=== PATIENT | male | born 1945 | race Hispanic/Latino ===

== ENCOUNTER 2016-02-16 14:37 | Inpatient (IN) | payer MEDICARE ==
--- NOTE | 2016-02-16 15:36 | Emergency Department Report ---
Chief Complaint: Back Pain/Injury Stated Complaint: REFERELL/DIRECT ADMIT/KNOT ON BACK Time Seen by Provider: 02/16/16 15:25 - HPI History of Present Illness: Patient is a 20-year-old male who was sent by his physician Dr. Mead for admission for uncontrolled diabetes II and a gluteal abscess. Patient states he has discomfort on his buttocks area that started to swallow on February 07. Patient states since then pain has gotten worse and swelling has gotten better. Patient states pain for . Patient states he has not been taking medication for diabetes. He took a dose of metformin today. Patient denies fevers/chills/nausea/vomiting/abdominal pain/chest pain/ shortness of breath. - ROS Review of Systems: As noted in HPI. - Exam Vital Signs: Vital Signs 02/16/16 14:51 Temperature 98.8 F Pulse Rate 56 L Respiratory 22 Rate Blood Pressure 109/70 O2 Sat by Pulse 94 Oximetry Physical Exam: GENERAL: Alert and oriented x3, no apparent distress, Normal Gait, atraumatic. NECK: Supple. Non edematous, No carotid bruits. No lymphadenopathy or thyromegaly. LUNGS: Symetrical with respiration, No wheezing, no rales or crackles, CTAB. HEART: S1, S2 present, regular rate and rhythm without murmur, no rubs, no gallops. ABDOMEN: No organomegaly was noted,Positive bowel sounds, soft, and non- distended. . Nontender to palpation on all Quadrants, NO CVA tenderness. SKIN Buttock: Warm and erythemathous, severe tender to touch, mass palpated at bilateral top of buttocks. erythematous at sacral region, no d/c or open lesions , MSE screening note: Focused history and physical exam performed. Due to findings the following was ordered: ED Medical Decision Making - Medical Decision Making Patient was sent in by Dr. pires to be assessed. Patient waiting to see ED physician. Vital signs stable. Patient unable to sleep on buttock. - Differential Diagnosis 1. Pilondial abscess, cellulitis, ED Disposition for MSE Condition: Stable
[2016-02-16] MEDS ORDERED: NACL 0.9% 1000 ML 1,000 ML IV ONE ×2 (20:58→21:04)
[2016-02-16] MEDS ORDERED: MORPHINE IV ONE (21:05)
[2016-02-16] MEDS ORDERED: NACL ONE (21:12)
[2016-02-16 21:21] LABS: Basophils % (Auto) 0.4 % (0.0-1.8); Eosinophils % (Auto) 0.1 % (0.0-4.3); Hematocrit 39.1 % (35.5-45.6); Hemoglobin 13.2 gm/dl (11.8-15.2); Mean Corpuscular HGB Conc 34 % (32-34); Mean Corpuscular Hemoglobin 31 pg (28-32); Mean Corpuscular Volume 91 fl (84-94); Platelet Count 373 K/mm3 (140-440); Red Cell Distribution Width 12.8 % (13.2-15.2); White Blood Count 17.6 K/mm3 (4.5-11.0)
[2016-02-16 21:41] LABS: Alanine Aminotransferase 10 units/L (7-56); Albumin/Globulin Ratio 0.7 %; Alkaline Phosphatase 86 units/L (35-129); Bilirubin,Total 0.5 mg/dL (0.1-1.2); Blood Urea Nitrogen 27 mg/dL (9-20); Calcium 9.1 mg/dL (8.4-10.2); Carbon Dioxide 19 mmol/L (22-30); Glucose 354 mg/dL (75-100); Total Protein 7.1 g/dL (6.3-8.2)
[2016-02-16 21:42] LABS: Anion Gap 31 mmol/L; Chloride 81.8 mmol/L (98-107); Potassium 4.6 mmol/L (3.6-5.0); Sodium 127 mmol/L (137-145)
[2016-02-16] MEDS ORDERED: VANCOMYCIN VIAL IV ONE (21:55)
[2016-02-16] MEDS ORDERED: ZOSYN/NS 4.5GM/100ML 100 ML IV ONE (21:55)
--- NOTE | 2016-02-16 21:55 | Emergency Department Report ---
HPI - General Chief Complaint: Back Pain/Injury - HPI HPI: 70 yo M with ho T2DM, HTN, afib sent here by PCP due to abcess to gluteal region. Starte on 02/08/16 and has worsened since. 12/03 constatn burning sensation, no alleviating factors, aggravated by defecating or sitting down. No urinary/rectal incontinence, no saddle anesthesia, no LE weakness ED Past Medical Hx - Past Medical History Previous Medical History?: Yes Hx Hypertension: Yes Hx Diabetes: Yes - Social History Smoking Status: Unknown if ever smoked Substance Use Type: None - Medications Home Medications: Home Medications Medication Instructions Recorded Confirmed Last Taken Type Acebutolol HCl [Sectral] 400 mg PO QDAY 02/16/16 02/16/16 Unknown History Aspirin EC [Ecotrin] 325 mg PO QDAY 02/16/16 02/16/16 Unknown History AtorvaSTATin [Lipitor] 40 mg PO DAILY 02/16/16 02/16/16 Unknown History Digoxin 250 mcg PO DAILY 02/16/16 02/16/16 Unknown History Lisinopril [Zestril] 20 mg PO QDAY 02/16/16 02/16/16 Unknown History metFORMIN [Glucophage] 850 mg PO BID 02/16/16 02/16/16 Unknown History ED Review of Systems ROS: Stated complaint: REFERELL/DIRECT ADMIT/KNOT ON BACK Other details as noted in HPI GENERAL: normal vitals and appearance EYES: no blurry vision, no eye pain, no discharge ENT & MOUTH: no rhinorrhea, no congestion, no sore throat, no neck pain CARDS: No chest pain, no palpitations RESP: No cough, no wheezing, no sob GI: No abdominal pain, no nausea, no vomiting, no diarrhea, no constipation MSK: No lower extremity edema, MYALGIA SKIN: ABSCESS : No hematuria, no discharge NEURO: No headache, no dizziness, no syncope PSYCH: No SI, no HI, no depression, no halluicinations Physical Exam - Physical Exam Vital Signs: Vital Signs 02/16/16 02/16/16 02/16/16 14:51 20:47 21:13 Temperature 98.8 F 98.7 F Pulse Rate 56 L 59 L Respiratory 22 20 20 Rate Blood Pressure 109/70 Blood Pressure 100/59 [Right] O2 Sat by Pulse 94 97 97 Oximetry Physical Exam: Nursing notes and vitals reviewed GENERAL: well nourished patient in NAD EYES: PERRL, EOMI, no scleral icterus HENT: No posterior oropharynce erythema, normal external ear and nose anatomy NECK: no nuchal rigidity, neck is supple, ROM intact CARDS: RRR, no murmur or gallops, no chest wall tenderness, distal pulses are intact RESP: no respiratory distress, no wheezing, no sob, no crackles or rales ABD: not distended, normal BS, soft, no TTP, no rebound or guarding BACK- erythema of lower back and blt gluteus, moderate TTP RECTAL: no external lesion, normal rectal tone, tenderness to palpation of posterior rectal wall, no fluctuance MSK: No LE pitting edema, no joint TTP in LE or UE NEURO: A&O x4 SKIN: Warm and dry, no rash ED Course Vital Signs 02/16/16 02/16/16 02/16/16 14:51 20:47 21:13 Temperature 98.8 F 98.7 F Pulse Rate 56 L 59 L Respiratory 22 20 20 Rate Blood Pressure 109/70 Blood Pressure 100/59 [Right] O2 Sat by Pulse 94 97 97 Oximetry - Reevaluation(s) Reevaluation #1: 02/16/16 21:[address] Senior, he agrees to admit patient asked for floor orders to be placed ED Medical Decision Making - Lab Data Result diagrams: 02/19/16 06:52 02/19/16 06:52 - Radiology Data Radiology results: report reviewed CT a/p abscess with evidence of gas forming bacteria - Medical Decision Making 70 yo M with back pain concerning for abscess, given that he is diabetic there is a concern for spinal abscess will evaluate for perirectal abscess diagnostic plan: cbc, cmp, lactic acid, ua/uc, blood culture, ct ap therapeutic plan: NS, morphine, vanc/zosyn Critical care attestation.: If time is entered above; I have spent that time in minutes in the direct care of this critically ill patient, excluding procedure time. ED Disposition Clinical Impression: Gluteal abscess Disposition: OP ADMITTED IP TO THIS HOSP Is pt being admited?: Yes Does the pt Need Aspirin: No Condition: Stable Time of Disposition: 02:24 ([place] [facility] [place]
[2016-02-16] MEDS ORDERED: VANCOMYCIN VIAL 1,500 MG in NACL 0.9% 500 ML 500 ML IV ONE (22:00)
[2016-02-16] MEDS ORDERED: VANCOMYCIN PHARMACY TO DOSE IV SCH (22:00)
[2016-02-17 01:00] LABS: Bilirubin,Urine NEG (Negative); Blood,Urine SM (Negative); Ketones,Urine 80 mg/dL (Negative); Leukocyte Esterase,Urine NEG (Negative); Mucus,Urine FEW /HPF; Nitrite,Urine NEG (Negative); Protein,Urine <15 mg/dL mg/dL (Negative); Urobilinogen,Urine < 2.0 mg/dL (<2.0)
[2016-02-17] MEDS ORDERED: NACL 0.9% 1000 ML IV SCH (01:00)
--- NOTE | 2016-02-17 01:26 | Cat Scan Report ---
FINAL REPORT PROCEDURE: CT ABDOMEN PELVIS W CON TECHNIQUE: Computerized axial tomography of the abdomen and pelvis was performed after the IV injection of iodinated nonionic contrast. HISTORY: rectal abscess COMPARISON: No prior studies are available for comparison. FINDINGS: There is subcutaneous induration dorsal to the sacrum and coccyx. There is a semi loculated collection of fluid and air in this region measuring 2.5 x 8.3 by 8.3 centimeters suggesting an early abscess. Pockets of air indicate possible infection with gas-forming organism. The adjacent bony structures are intact without specific evidence of osteomyelitis. There is no intra-abdominal extension of infection. Lung bases are clear. Liver, gallbladder, pancreas and spleen are within normal limits. Adrenal glands are unremarkable. There are cysts in the left kidney. There are no kidney stones. There is no hydronephrosis. There is no bowel obstruction, colitis or enteritis. The appendix is normal. There is calcified plaque in the abdominal aorta. There is no aneurysm. There is no ascites, free air, abscess or adenopathy. There is no acute bony abnormality. There are degenerative changes of the lumbar spine. IMPRESSION: There is subcutaneous induration dorsal to the sacrum and coccyx. There is a semi loculated collection of fluid and air in this region measuring 2.5 x 8.3 by 8.3 centimeters suggesting an early abscess. Pockets of air indicate possible infection with gas-forming organism. The adjacent bony structures are intact without specific evidence of osteomyelitis. There is no intra-abdominal extension of infection. There are cysts in the left kidney. There are no kidney stones. There is no hydronephrosis. There is no bowel obstruction, colitis or enteritis. The appendix is normal. There is no ascites, free air, abscess or adenopathy. There are degenerative changes of the lumbar spine.
[2016-02-17] MEDS ORDERED: D50W (25GM) IV PRN (02:20)
[2016-02-17] MEDS: NACL 0.9% 1000 ML 1,000 ML IV SCH ×2 (02:27→11:39)
[2016-02-17] MEDS: TYLENOL PO PRN ×2 (06:17→21:03)
--- NOTE | 2016-02-17 06:23 | Admit Criteria Form ---
Admission Criteria Documentation: BACK PAIN Clinical Indications for Admission to Inpatient Care (Place 'X' for any and all applicable criteria): Admission is indicated for ANY ONE of the following (1)(2)(3)(4)(5)(6): [ X]I. Inpatient admission required rather than observation care (Also use Back Pain: Observation Care as appropriate) because of ANY ONE of the following [ ]a) Severe pain requiring acute inpatient management [ ]b) Immediate inpatient surgery [ X]c) Other condition, treatment or monitoring requiring inpatient admission [ ]II. Spine fracture with significant damage or threat of damage to vertebral column or spinal cord [ ]III. Progressive or severe neurologic deficit [ ]IV. Suspected spinal infection (e.g., epidural abscess, vertebral osteomyelitis)(10) [ ]V. Suspected cause requires inpatient treatment (eg, aortic dissection) [ ]. Cauda equina syndrome as indicated by ANY ONE of the following (9): [ ]a) Bowel dysfunction [ ]b) Bladder dysfunction [ ]c) Saddle anesthesia [ ]d) Neurologic abnormality suggesting cauda equina impingement Extended stay beyond goal length of stay may be needed for (3)(25): [ ]a) Spinal cord compression from stenosis, disk, or tumor (8)(9) [ ]b) Traumatic or pathologic vertebral fracture (33) [ ]c) Vertebral infection(10) [ ]d) Severe pain that is difficult to control [ ]e) Older patients(65 years or older) The original [employer] content created by [employer] has been revised. The portions of the content which have been revised are identified through the use of italic text or in bold, and [facility] has neither reviewed nor approved the modified material. All other unmodified content is copyright [employer]. Please see references footnoted in the original [facility] edition 2016 Admission Criteria Met: Pending
[2016-02-17] MEDS: NOVOLOG SUB-Q SCH ×4 (07:30→22:11)
--- NOTE | 2016-02-17 10:35 | History and Physical Report ---
History of Present Illness Date of examination: 02/17/16 Date of admission: 02/17/16 02:15 Chief complaint: Pain and swelling both gluteus, History of present illness: Pt is a 70 y/o male alayna is a know diabeetic and has been off his meds for weeks because he had been on the road and left his medicine in one of his stop presented to my office yesterday with pain and swelling in both gluteus, the left being worse than the right. Blood sugar was elevated with A1c of >11%. Denies any fever. No chills, N/V. Presented to ED where CT of the abdomen and pelvis showed what appears to be gas forming organisms. Was commence on Zosyn and vanc. as well as sliding scale insulin. Blood cx ordered Past History Past Medical History: atrial fib, diabetes Past Surgical History: No surgical history Social history: denies: smoking, alcohol abuse Family history: diabetes Medications and Allergies Allergies Allergy/AdvReac Type Severity Reaction Status Date / Time No Known Allergies Allergy Verified 02/16/16 21:14 Home Medications Medication Instructions Recorded Confirmed Last Taken Type Acebutolol HCl [Sectral] 400 mg PO QDAY 02/16/16 02/16/16 Unknown History Aspirin EC [Ecotrin] 325 mg PO QDAY 02/16/16 02/16/16 Unknown History AtorvaSTATin [Lipitor] 40 mg PO DAILY 02/16/16 02/16/16 Unknown History Digoxin 250 mcg PO DAILY 02/16/16 02/16/16 Unknown History Lisinopril [Zestril] 20 mg PO QDAY 02/16/16 02/16/16 Unknown History metFORMIN [Glucophage] 850 mg PO BID 02/16/16 02/16/16 Unknown History Active Meds: Active Medications Acetaminophen (Tylenol) 650 mg PO Q4H PRN PRN Reason: non cardiac pain or fever Last Admin: 02/17/16 06:17 Dose: 650 mg Dextrose (D50w (25gm)) 50 ml IV PRN PRN PRN Reason: Hypoglycemia Docusate Sodium (Colace) 100 mg PO Q12HR [facility] Sodium Chloride (Nacl 0.9% 1000 Ml) 1,000 mls @ 125 mls/hr IV DIRECT [facility] Last Admin: 02/17/16 02:27 Dose: 125 mls/hr Vancomycin HCl 1,250 mg/ (Sodium Chloride) 250 mls @ 166.667 mls/hr IV Q12H [facility] Insulin Aspart (Novolog) 0 units SUB-Q ACHS [facility] PRN Reason: Protocol Senna (Senokot) 8.6 mg PO Q12HR [facility] Vancomycin HCl (Vancomycin Pharmacy To Dose) 1 each IV PKCONSULT [facility] PRN Reason: Protocol Review of Systems Constitutional: no weight loss, no fever, no chills, no anorexia Ears, nose, mouth and throat: no ear pain, no ear discharge Cardiovascular: no chest pain, no orthopnea, no palpitations Respiratory: no cough, no cough with sputum Gastrointestinal: no nausea, no vomiting Genitourinary Male: no dysuria, no hematuria, no flank pain Rectal: no pain Musculoskeletal: other (pain in both gluteal muscles), no neck stiffness, no neck pain Integumentary: no rash, no pruritis, no redness Neurological: no head injury, no transient paralysis, no paralysis Psychiatric: no anxiety, no memory loss, no change in sleep habits Endocrine: no cold intolerance, no heat intolerance, no polyphagia Hematologic/Lymphatic: no easy bruising Allergic/Immunologic: no urticaria Exam - Constitutional Vitals: Temp Pulse Resp BP Pulse Ox 98.6 F 105 H 22 116/56 95 02/17/16 08:44 02/17/16 08:44 02/17/16 08:44 02/17/16 08:44 02/17/16 08:44 General appearance: Present: no acute distress, mild distress - EENT Eyes: Present: PERRL, EOM intact ENT: hearing intact - Neck Neck: Present: supple - Respiratory Respiratory effort: normal Respiratory: bilateral: CTA - Cardiovascular Rhythm: regular Heart Sounds: Present: S1 & S2 - Extremities Extremities: no ischemia, No edema - Abdominal General gastrointestinal: Present: soft, non-tender, non-distended - Integumentary Integumentary: Present: warm (warm tender gluteus muscles bilaterally) - Musculoskeletal Musculoskeletal: strength equal bilaterally - Psychiatric Psychiatric: appropriate mood/affect - Neurologic Neurologic: CNII-XII intact Results - Labs CBC & Chem 7: 02/16/16 21:06 02/16/16 21:06 Labs: Abnormal lab results 02/17/16 Range/Units 06:21 POC Glucose 278 H (70-105) Assessment and Plan - Patient Problems (1) Gluteal abscess Diagnosis Date: 02/17/16 Current Visit: Yes Status: Acute Plan to address problem: Needle aspiration of the left gluteus yieded no abcess. Pt Likely has cellulitis. CT scan of gas forming organism noted, though doubtful. Will consult ID and surgeon. Surgicla consult ordered (2) Diabetes mellitus Diagnosis Date: 02/17/16 Current Visit: Yes Status: Acute Qualifiers: Diabetes mellitus type: type 2 Diabetes mellitus complication status: with skin complications Diabetes mellitus cephalometric technician insulin use: without cephalometric technician use Plan to address problem: 1999 ADA diet, sliding scale insulin (3) H/O atrial fibrillation without current medication Diagnosis Date: 02/17/16 Current Visit: Yes Status: Acute Plan to address problem: continue with digoxin. Will check dig level (4) SIRS (systemic inflammatory response syndrome) Diagnosis Date: 02/17/16 Current Visit: Yes Status: Acute Plan to address problem: elevated lactic acid level. blood culture and urine culture taken. continue with Vanc and zosyn (5) Hyponatremia Diagnosis Date: 02/17/16 Current Visit: Yes Status: Acute Plan to address problem: Secondary to DM. on NS infusion
[2016-02-17] MEDS ORDERED: ACEBUTOLOL HCL 400 MG PO SCH (11:15)
[2016-02-17] MEDS: COLACE PO SCH ×2 (11:40→21:02)
[2016-02-17] MEDS: ZESTRIL PO SCH (11:41)
[2016-02-17] MEDS: SENOKOT PO SCH ×2 (11:41→21:03)
[2016-02-17] MEDS: ECOTRIN PO SCH (11:41)
[2016-02-17] MEDS: VANCOMYCIN VIAL 1,250 MG in NACL 0.9% 250ML 250 ML IV SCH ×2 (11:48→23:22)
[2016-02-17] MEDS: GLUCOPHAGE PO SCH ×2 (11:48→21:03)
[2016-02-17] MEDS: LANOXIN PO SCH (11:53)
--- NOTE | 2016-02-17 16:23 | Consultation ---
History of Present Illness - Reason for Consult Consult date: 02/17/16 Gluteal cellulitis Requesting physician: FÁTIMA ALVARADO - History of Present Illness Rajeev Hsu is a 70-year-old male with type 2 diabetes mellitus, paroxysmal atrial fibrillation and hypertension who was admitted to [facility] on 02/16/[address] Alvarado and his office with hyperglycemia and bilateral gluteal pain that started suddenly early on 02/07/16. 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 He then returned to [place] and developed the above-mentioned symptoms and was seen by Dr. Alvarado and apparently needle aspirate did not reveal any pus. He has not had similar pain before. He knows of no injury to the gluteal areas. He has not had any subjective fever nor chills and no nausea or vomiting. Review of systems General: See HPI HEENT: no odynophagia, no dysphagia, no oral lesions, no vision changes CV: no chest pain, no palpitations Chest: no dyspnea, no cough GI: no abdominal pain, no N/V, no diarrhea : no change in urinary frequency, no dysuria, no hematuria Skin: no rashes; Ext: Severe gluteal pain as per HPI. Neuro: no headaches, no numbness/tingling, no tremors Endocrine: Type 2 diabetes as per HPI. Psych: no anxiety, no depression Infectious diseases: No HIV risk factors, No history of STDs, No significant travel or animal contact history. Past History Past Medical History: atrial fib, diabetes Past Surgical History: No surgical history Social history: denies: smoking, alcohol abuse Family history: diabetes Medications and Allergies Allergies Allergy/AdvReac Type Severity Reaction Status Date / Time No Known Allergies Allergy Verified 02/16/16 21:14 Home Medications Medication Instructions Recorded Confirmed Last Taken Type Acebutolol HCl [Sectral] 400 mg PO QDAY 02/16/16 02/16/16 Unknown History Aspirin EC [Ecotrin] 325 mg PO QDAY 02/16/16 02/16/16 Unknown History AtorvaSTATin [Lipitor] 40 mg PO DAILY 02/16/16 02/16/16 Unknown History Digoxin 250 mcg PO DAILY 02/16/16 02/16/16 Unknown History Lisinopril [Zestril] 20 mg PO QDAY 02/16/16 02/16/16 Unknown History metFORMIN [Glucophage] 850 mg PO BID 02/16/16 02/16/16 Unknown History Active Meds: Active Medications Acetaminophen (Tylenol) 650 mg PO Q4H PRN PRN Reason: non cardiac pain or fever Last Admin: 02/17/16 06:17 Dose: 650 mg Aspirin (Ecotrin) 325 mg PO QDAY [facility] Last Admin: 02/17/16 11:41 Dose: 325 mg Atorvastatin Calcium (Lipitor) 40 mg PO DAILY [facility] Last Admin: 02/17/16 11:48 Dose: 40 mg Dextrose (D50w (25gm)) 50 ml IV PRN PRN PRN Reason: Hypoglycemia Digoxin (Lanoxin) 0.25 mg PO DAILY [facility] Last Admin: 02/17/16 11:53 Dose: 0.25 mg Docusate Sodium (Colace) 100 mg PO Q12HR [facility] Last Admin: 02/17/16 11:40 Dose: 100 mg Sodium Chloride (Nacl 0.9% 1000 Ml) 1,000 mls @ 125 mls/hr IV DIRECT [facility] Last Admin: 02/17/16 11:39 Dose: 125 mls/hr Vancomycin HCl 1,250 mg/ (Sodium Chloride) 250 mls @ 166.667 mls/hr IV Q12H [facility] Last Admin: 02/17/16 11:48 Dose: 166.667 mls/hr Insulin Aspart (Novolog) 0 units SUB-Q ACHS [facility] PRN Reason: Protocol Last Admin: 02/17/16 13:41 Dose: 6 units Lisinopril (Zestril) 20 mg PO QDAY [facility] Last Admin: 02/17/16 11:41 Dose: 20 mg Metformin HCl (Glucophage) 850 mg PO BID [facility] Last Admin: 02/17/16 11:48 Dose: 850 mg Miscellaneous Medication (Acebutolol Hcl [Sectral]) 400 mg PO QDAY [facility] Morphine Sulfate (Morphine) 2 mg IV Q4H PRN PRN Reason: Pain, Moderate (4-6) Senna (Senokot) 8.6 mg PO Q12HR [facility] Last Admin: 02/17/16 11:41 Dose: 8.6 mg Vancomycin HCl (Vancomycin Pharmacy To Dose) 1 each IV PKCONSULT [facility] PRN Reason: Protocol Physical Examination - Physical Exam Narrative exam: GENERAL: Well-developed, well-nourished appearing male who is alert and in no acute distress but lying on his side avoiding pressure to the gluteal areas. HEAD: Normocephalic. No lesions seen. EYES: Pupils are equal reactive to light and accommodation. There is no scleral icterus. Optic fundi are not examined. EARS: Tympanic membranes are normal. THROAT: Oropharynx is normal with no evidence of oral candidiasis or pharyngitis. Poor dentition but no obvious dental infection seen. NECK: Supple. No enlargement of the thyroid gland. No significant cervical lymphadenopathy. No jugular venous distention at 30. LUNGS: Clear with no adventitious sounds. HEART: Regular rate. S1 and S2 are normal. There are no murmurs, gallops, clicks or rubs heard. ABDOMEN: Soft and nontender. Liver and spleen are not palpably enlarged or tender. No palpable masses. Bowel sounds are normoactive. EXTREMITIES: No rash, peripheral lymphadenopathy, clubbing or edema. Lateral induration and exquisite tenderness over both gluteal areas with no definite fluctuance nor crepitus. There is slight increased warmth but no erythema seen. : Normal external male. No penile lesions or urethral discharge. No testicular masses or tenderness. NEUROLOGIC: No focal findings. - Constitutional Vitals: Vital Signs Temp Pulse Resp BP Pulse Ox 98.6 F 106 H 20 110/68 95 02/17/16 08:44 02/17/16 11:53 02/17/16 10:00 02/17/16 11:41 02/17/16 08:44 Temperature -Last 24 Hours Temperature 98.6 F Temperature 98.3 F Results - Labs CBC & Chem 7: 02/16/16 21:06 02/16/16 21:06 Labs: Laboratory Tests 02/16/16 02/16/16 02/17/16 21:06 21:06 00:50 Carbon Dioxide 19 L Glucose 354 H Lactic Acid 2.2 H* Urine Ketones 80 Microbiology 02/16/16 00:00 Peripheral/Venous Blood Culture - Preliminary Culture in Progress 02/16/16 00:00 Peripheral/Venous Blood Culture - Preliminary Culture in Progress Imagin/23: CT abdomen/pelvis: Subcutaneous induration dorsal to the sacrum and coccyx a loculated fluid collection measuring 2.58.3 x 8.3 cm suggestive of early abscess Assessment and Plan Current antibiotics: Vancomycin 1250 mg IV q12h 02/15 --> Previous antibiotics: Zosyn 4.5 g IV X 1 02/15 ASSESSMENT: Rajeev Hsu is a 70-year-old male with type 2 diabetes mellitus, paroxysmal atrial fibrillation and hypertension who was admitted to [facility] on 02/16/[address] Alvarado and his office with hyperglycemia and bilateral gluteal pain that started suddenly early on 02/07/16. CT scan shows a possible early abscess in the precoccygeal/presacral area. Problem list: 1. Severe bilateral gluteal pain -Associated induration and increased warmth and marked tenderness to palpation -Rule out gluteal cellulitis although bilaterality is unusual -Rule out early necrotizing fasciitis -Rule out other cause loading referred pain from #[address] scan suggesting early precoccygeal/presacral abscess 3. Type 2 diabetes mellitus -Poor glycemic control -Hemoglobin A1c of > [address] Alvarado's note -Rule out DKA 4. Lactic acidosis -Likely secondary to #1 and #2 5. History of paroxysmal atrial fibrillation -In sinus rhythm at present on exam 6. Leukocytosis -Secondary to #1 and #2 PLAN: 1. Follow up on admission blood cultures 2. Will continue vancomycin and add back Zosyn pending further culture data 3. Consider IR evaluation to see if collection seen on CT scan can be aspirated 4. Will check beta hydroxybutyrate 5. Glycemic control as per Dr. Alvarado 6. Follow clinical exam closely for evidence of necrotizing fasciitis Thank you for this consultation. We will follow with you. Xavier Ruby MD [facility] Office: [phone]
[2016-02-17] MEDS: ZOSYN/NS 4.5GM/100ML 100 ML IV SCH ×2 (18:05→21:02)
[2016-02-18] MEDS: ZOSYN/NS 4.5GM/100ML 100 ML IV SCH ×3 (05:35→21:45)
[2016-02-18] MEDS: NACL 0.9% 1000 ML 1,000 ML IV SCH ×2 (06:49→17:41)
[2016-02-18 07:38] LABS: Basophils % (Auto) 0.7 % (0.0-1.8); Eosinophils % (Auto) 0.1 % (0.0-4.3); Hematocrit 34.2 % (35.5-45.6); Hemoglobin 11.5 gm/dl (11.8-15.2); Mean Corpuscular HGB Conc 34 % (32-34); Mean Corpuscular Hemoglobin 30 pg (28-32); Mean Corpuscular Volume 91 fl (84-94); Platelet Count 292 K/mm3 (140-440); Red Blood Count 3.77 M/mm3 (3.65-5.03); White Blood Count 16.4 K/mm3 (4.5-11.0)
[2016-02-18 07:54] LABS: Alanine Aminotransferase 14 units/L (7-56); Albumin/Globulin Ratio 0.6 %; Alkaline Phosphatase 67 units/L (35-129); Anion Gap 24 mmol/L; BUN/Creatinine Ratio 18.75; Bilirubin,Total 0.4 mg/dL (0.1-1.2); Blood Urea Nitrogen 15 mg/dL (9-20); Calcium 7.5 mg/dL (8.4-10.2); Carbon Dioxide 17 mmol/L (22-30); Chloride 92.7 mmol/L (98-107); Glucose 267 mg/dL (75-100); Magnesium 1.8 mg/dL (1.7-2.3); Phosphorous 1.5 mg/dL (2.5-4.5); Potassium 3.8 mmol/L (3.6-5.0); Sodium 130 mmol/L (137-145); Total Protein 5.5 g/dL (6.3-8.2)
[2016-02-18] MEDS: NOVOLOG SUB-Q SCH ×4 (08:36→22:31)
[2016-02-18] MEDS: MORPHINE IV PRN ×2 (10:29→22:28)
[2016-02-18] MEDS: SENOKOT PO SCH ×2 (10:29→21:45)
[2016-02-18] MEDS: COLACE PO SCH ×2 (10:30→21:45)
[2016-02-18] MEDS: ECOTRIN PO SCH (10:30)
[2016-02-18] MEDS: LANOXIN PO SCH (10:30)
[2016-02-18] MEDS: GLUCOPHAGE PO SCH ×2 (10:31→21:44)
[2016-02-18] MEDS: ZESTRIL PO SCH (10:31)
[2016-02-18] MEDS ORDERED: XYLOCAINE 1%/ EPI 1:100,000 INFILTRATI NR (11:00)
--- NOTE | 2016-02-18 11:18 | Consultation ---
History of Present Illness Consult date: 02/18/16 - History of present illness History of present illness: The patient is a 70M with a history of DM, afib who presents with upper gluteal pain. He says he has had it for a few days now. He denies any drainage at home. He denies any fevers. He has never had this before. CT scan of the area showed induration and possible supperficial early abscess dorsal to coccyx. Past History Past Medical History: atrial fib, diabetes Past Surgical History: No surgical history Social history: denies: smoking, alcohol abuse Family history: diabetes Medications and Allergies Allergies Allergy/AdvReac Type Severity Reaction Status Date / Time No Known Allergies Allergy Verified 02/16/16 21:14 Home Medications Medication Instructions Recorded Confirmed Last Taken Type Acebutolol HCl [Sectral] 400 mg PO QDAY 02/16/16 02/16/16 Unknown History Aspirin EC [Ecotrin] 325 mg PO QDAY 02/16/16 02/16/16 Unknown History AtorvaSTATin [Lipitor] 40 mg PO DAILY 02/16/16 02/16/16 Unknown History Digoxin 250 mcg PO DAILY 02/16/16 02/16/16 Unknown History Lisinopril [Zestril] 20 mg PO QDAY 02/16/16 02/16/16 Unknown History metFORMIN [Glucophage] 850 mg PO BID 02/16/16 02/16/16 Unknown History Active Meds: Active Medications Acetaminophen (Tylenol) 650 mg PO Q4H PRN PRN Reason: non cardiac pain or fever Last Admin: 02/17/16 21:03 Dose: 650 mg Aspirin (Ecotrin) 325 mg PO QDAY REPLACED BY [facility] Last Admin: 02/18/16 10:30 Dose: 325 mg Atorvastatin Calcium (Lipitor) 40 mg PO DAILY REPLACED BY [facility] Last Admin: 02/18/16 10:30 Dose: 40 mg Dextrose (D50w (25gm)) 50 ml IV PRN PRN PRN Reason: Hypoglycemia Digoxin (Lanoxin) 0.25 mg PO DAILY REPLACED BY [facility] Last Admin: 02/18/16 10:30 Dose: 0.25 mg Docusate Sodium (Colace) 100 mg PO Q12HR REPLACED BY [facility] Last Admin: 02/18/16 10:30 Dose: 100 mg Sodium Chloride (Nacl 0.9% 1000 Ml) 1,000 mls @ 125 mls/hr IV DIRECT REPLACED BY [facility] Last Admin: 12/25/16 06:49 Dose: 125 mls/hr Vancomycin HCl 1,250 mg/ (Sodium Chloride) 250 mls @ 166.667 mls/hr IV Q12H REPLACED BY [facility] Last Admin: 02/17/16 23:22 Dose: 166.667 mls/hr Piperacillin Sod/Tazobactam Sod (Zosyn/Ns 4.5gm/100ml) 100 mls @ 200 mls/hr IV Q8HR REPLACED BY [facility] PRN Reason: Protocol Last Admin: 02/18/16 05:35 Dose: 200 mls/hr Insulin Aspart (Novolog) 0 units SUB-Q ACHS REPLACED BY [facility] PRN Reason: Protocol Last Admin: 02/18/16 08:36 Dose: 3 units Lidocaine/Epinephrine (Xylocaine 1%/ Epi 1:100,000) 20 ml INFILTRATI ONCE NR Stop: 02/18/16 23:59 Last Admin: 02/18/16 10:29 Dose: 20 ml Lisinopril (Zestril) 20 mg PO QDAY REPLACED BY [facility] Last Admin: 02/18/16 10:31 Dose: 20 mg Metformin HCl (Glucophage) 850 mg PO BID REPLACED BY [facility] Last Admin: 02/18/16 10:31 Dose: 850 mg Miscellaneous Medication (Acebutolol Hcl [Sectral]) 400 mg PO QDAY REPLACED BY [facility] Morphine Sulfate (Morphine) 2 mg IV Q4H PRN PRN Reason: Pain, Moderate (4-6) Last Admin: 02/18/16 10:29 Dose: 2 mg Senna (Senokot) 8.6 mg PO Q12HR REPLACED BY [facility] Last Admin: 02/18/16 10:29 Dose: 8.6 mg Vancomycin HCl (Vancomycin Pharmacy To Dose) 1 each IV PKCONSULT REPLACED BY [facility] PRN Reason: Protocol Review of Systems - Constitutional no fever Exam Vital Signs Temp Pulse Resp BP Pulse Ox 98.8 F 56 L 22 109/70 94 02/16/16 14:51 02/16/16 14:51 02/16/16 14:51 02/16/16 14:51 02/16/16 14:51 - General physical appearance Positive: well developed - Eyes Positive: PERRL - Respiratory Positive: normal expansion, clear to auscultation - Cardiovascular Rhythm: regular Heart Sounds: Present: S1 & S2 - Abdomen Abdomen: Present: soft, bowel sounds normal (B/L buttock - induration over B/L upper buttocks. Small area of fluctuance over R buttock, near glteal cleft. ) Results - Labs 02/18/16 07:02 02/18/16 07:02 Abnormal lab results 02/17/16 02/17/16 02/17/16 Range/Units 04:12 12:19 15:47 WBC (4.5-11.0) K/mm3 Hgb (11.8-15.2) gm/dl Hct (35.5-45.6) % RDW (13.2-15.2) % Lymph % (Auto) (13.4-35.0) % [place] % (Auto) (0.0-7.3) % Lymph # (1.2-5.4) K/mm3 [place] # (0.0-0.8) K/mm3 Seg Neutrophils % (40.0-70.0) % Seg Neutrophils # (1.8-7.7) K/mm3 Sodium (137-145) mmol/L Chloride (98-107) mmol/L Carbon Dioxide (22-30) mmol/L Glucose (75-100) mg/dL POC Glucose 270 H 351 H 344 H (70-105) Calcium (8.4-10.2) mg/dL Phosphorus (2.5-4.5) mg/dL Total Protein (6.3-8.2) g/dL Albumin (3.9-5) g/dL Ketones (0.2-2.8) mg/dL 02/17/16 02/17/16 02/18/16 Range/Units 17:19 21:26 05:52 WBC (4.5-11.0) K/mm3 Hgb (11.8-15.2) gm/dl Hct (35.5-45.6) % RDW (13.2-15.2) % Lymph % (Auto) (13.4-35.0) % [place] % (Auto) (0.0-7.3) % Lymph # (1.2-5.4) K/mm3 [place] # (0.0-0.8) K/mm3 Seg Neutrophils % (40.0-70.0) % Seg Neutrophils # (1.8-7.7) K/mm3 Sodium (137-145) mmol/L Chloride (98-107) mmol/L Carbon Dioxide (22-30) mmol/L Glucose (75-100) mg/dL POC Glucose 287 H 241 H (70-105) Calcium (8.4-10.2) mg/dL Phosphorus (2.5-4.5) mg/dL Total Protein (6.3-8.2) g/dL Albumin (3.9-5) g/dL Ketones 15.9 H (0.2-2.8) mg/dL 02/18/16 02/18/16 Range/Units 07:02 07:02 WBC 16.4 H (4.5-11.0) K/mm3 Hgb 11.5 L (11.8-15.2) gm/dl Hct 34.2 L (35.5-45.6) % RDW 13.0 L (13.2-15.2) % Lymph % (Auto) 5.7 L (13.4-35.0) % [place] % (Auto) 8.5 H (0.0-7.3) % Lymph # 0.9 L (1.2-5.4) K/mm3 [place] # 1.4 H (0.0-0.8) K/mm3 Seg Neutrophils % 85.0 H (40.0-70.0) % Seg Neutrophils # 13.9 H (1.8-7.7) K/mm3 Sodium 130 L (137-145) mmol/L Chloride 92.7 L (98-107) mmol/L Carbon Dioxide 17 L (22-30) mmol/L Glucose 267 H (75-100) mg/dL POC Glucose (70-105) Calcium 7.5 L D (8.4-10.2) mg/dL Phosphorus 1.5 L (2.5-4.5) mg/dL Total Protein 5.5 L D (6.3-8.2) g/dL Albumin 2.0 L (3.9-5) g/dL Ketones (0.2-2.8) mg/dL Diabetes panel 02/18/16 Range/Units 07:02 Sodium 130 L (137-145) mmol/L Potassium 3.8 (3.6-5.0) mmol/L Chloride 92.7 L (98-107) mmol/L Carbon Dioxide 17 L (22-30) mmol/L BUN 15 (9-20) mg/dL Creatinine 0.8 (0.8-1.5) mg/dL Glucose 267 H (75-100) mg/dL Calcium 7.5 L D (8.4-10.2) mg/dL AST 22 (5-40) units/L ALT 14 (7-56) units/L Alkaline Phosphatase 67 (35-129) units/L Total Protein 5.5 L D (6.3-8.2) g/dL Albumin 2.0 L (3.9-5) g/dL Calcium panel 02/18/16 Range/Units 07:02 Calcium 7.5 L D (8.4-10.2) mg/dL Phosphorus 1.5 L (2.5-4.5) mg/dL Albumin 2.0 L (3.9-5) g/dL Pituitary panel 02/18/16 Range/Units 07:02 Sodium 130 L (137-145) mmol/L Potassium 3.8 (3.6-5.0) mmol/L Chloride 92.7 L (98-107) mmol/L Carbon Dioxide 17 L (22-30) mmol/L BUN 15 (9-20) mg/dL Creatinine 0.8 (0.8-1.5) mg/dL Glucose 267 H (75-100) mg/dL Calcium 7.5 L D (8.4-10.2) mg/dL Adrenal panel 02/18/16 Range/Units 07:02 Sodium 130 L (137-145) mmol/L Potassium 3.8 (3.6-5.0) mmol/L Chloride 92.7 L (98-107) mmol/L Carbon Dioxide 17 L (22-30) mmol/L BUN 15 (9-20) mg/dL Creatinine 0.8 (0.8-1.5) mg/dL Glucose 267 H (75-100) mg/dL Calcium 7.5 L D (8.4-10.2) mg/dL Total Bilirubin 0.4 (0.1-1.2) mg/dL AST 22 (5-40) units/L ALT 14 (7-56) units/L Alkaline Phosphatase 67 (35-129) units/L Total Protein 5.5 L D (6.3-8.2) g/dL Albumin 2.0 L (3.9-5) g/dL - Imaging Chest x-ray: report reviewed Assessment and Plan A/P: 1. Will aspirate to see if we can send pus for culture. Aside from the small area of fluctuance of R buttock, there is no other definite, large areas of fluctuance. There is extensive induration. Continue IV antibiotics, check cultures.
--- NOTE | 2016-02-18 11:30 | Procedure Note ---
Date of procedure: 02/18/16 Pre-op diagnosis: buttock abscess/induration Post-op diagnosis: same Procedure: Aspiration of R and L buttock, incision/drainage of R buttock abscess Anesthesia: local Surgeon: DANE LEBLANC Computer Numerical Control Programmer: SHRAVAN AMARO Estimated blood loss: minimal Specimen disposition: to lab
[2016-02-18] MEDS: VANCOMYCIN VIAL 1,250 MG in NACL 0.9% 250ML 250 ML IV SCH ×2 (12:22→23:00)
--- NOTE | 2016-02-18 15:55 | Progress Note ---
Assessment and Plan 1. Uncontrolled abcess: Continue with SSI 2. zach gluteal abcess: F/u with blood Cx. continue with Zosyn and Vanc 3. SIRS: continu with iv antibiotic and tend lactic acid level 4. 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 Still has fever Objective - Constitutional Vitals: Vital Signs - 12hr 02/18/16 02/18/16 02/18/16 04:00 08:20 11:45 Temperature 99.3 F 100.5 F H 98.4 F Pulse Rate [ 112 H 106 H 99 H Right Radial] Respiratory 20 16 20 Rate Blood Pressure 117/73 114/56 117/58 [Right Arm] O2 Sat by Pulse 96 Oximetry General appearance: Present: no acute distress - EENT Eyes: PERRL - Neck Neck: supple - Respiratory Respiratory: bilateral: CTA - Cardiovascular Rhythm: regular Heart Sounds: Present: S1 & S2 Extremities: no ischemia - Gastrointestinal General gastrointestinal: Present: soft, non-tender - Integumentary Integumentary: clear, warm - Musculoskeletal Musculoskeletal: strength equal bilaterally - Neurologic Neurologic: CNII-XII intact - Psychiatric Psychiatric: appropriate mood/affect - Labs CBC & Chem 7: 02/18/16 07:02 02/18/16 07:02 Labs: Abnormal lab results 02/17/16 02/17/16 02/17/16 Range/Units 04:12 15:47 17:19 WBC (4.5-11.0) K/mm3 Hgb (11.8-15.2) gm/dl Hct (35.5-45.6) % RDW (13.2-15.2) % Lymph % (Auto) (13.4-35.0) % [place] % (Auto) (0.0-7.3) % Lymph # (1.2-5.4) K/mm3 [place] # (0.0-0.8) K/mm3 Seg Neutrophils % (40.0-70.0) % Seg Neutrophils # (1.8-7.7) K/mm3 Sodium (137-145) mmol/L Chloride (98-107) mmol/L Carbon Dioxide (22-30) mmol/L Glucose (75-100) mg/dL POC Glucose 270 H 344 H (70-105) Calcium (8.4-10.2) mg/dL Phosphorus (2.5-4.5) mg/dL Total Protein (6.3-8.2) g/dL Albumin (3.9-5) g/dL Ketones 15.9 H (0.2-2.8) mg/dL 02/17/16 02/18/16 02/18/16 Range/Units 21:26 05:52 07:02 WBC 16.4 H (4.5-11.0) K/mm3 Hgb 11.5 L (11.8-15.2) gm/dl Hct 34.2 L (35.5-45.6) % RDW 13.0 L (13.2-15.2) % Lymph % (Auto) 5.7 L (13.4-35.0) % [place] % (Auto) 8.5 H (0.0-7.3) % Lymph # 0.9 L (1.2-5.4) K/mm3 [place] # 1.4 H (0.0-0.8) K/mm3 Seg Neutrophils % 85.0 H (40.0-70.0) % Seg Neutrophils # 13.9 H (1.8-7.7) K/mm3 Sodium (137-145) mmol/L Chloride (98-107) mmol/L Carbon Dioxide (22-30) mmol/L Glucose (75-100) mg/dL POC Glucose 287 H 241 H (70-105) Calcium (8.4-10.2) mg/dL Phosphorus (2.5-4.5) mg/dL Total Protein (6.3-8.2) g/dL Albumin (3.9-5) g/dL Ketones (0.2-2.8) mg/dL 02/18/16 02/18/16 Range/Units 07:02 11:51 WBC (4.5-11.0) K/mm3 Hgb (11.8-15.2) gm/dl Hct (35.5-45.6) % RDW (13.2-15.2) % Lymph % (Auto) (13.4-35.0) % [place] % (Auto) (0.0-7.3) % Lymph # (1.2-5.4) K/mm3 [place] # (0.0-0.8) K/mm3 Seg Neutrophils % (40.0-70.0) % Seg Neutrophils # (1.8-7.7) K/mm3 Sodium 130 L (137-145) mmol/L Chloride 92.7 L (98-107) mmol/L Carbon Dioxide 17 L (22-30) mmol/L Glucose 267 H (75-100) mg/dL POC Glucose 314 H (70-105) Calcium 7.5 L D (8.4-10.2) mg/dL Phosphorus 1.5 L (2.5-4.5) mg/dL Total Protein 5.5 L D (6.3-8.2) g/dL Albumin 2.0 L (3.9-5) g/dL Ketones (0.2-2.8) mg/dL
--- NOTE | 2016-02-18 15:56 | Progress Note ---
Assessment and Plan Current antibiotics: Vancomycin 1250 mg IV q12h 02/15 --> Previous antibiotics: Zosyn 4.5 g IV X 1 02/15 ASSESSMENT: Rajeev Hsu is a 70-year-old male with type 2 diabetes mellitus, paroxysmal atrial fibrillation and hypertension who was admitted to [facility] on 02/16/[address] Mead and his office with hyperglycemia and bilateral gluteal pain that started suddenly early on 02/07/16. CT scan shows a possible early abscess in the precoccygeal/presacral area. Problem list: 1. Severe bilateral gluteal pain -Associated induration and increased warmth and marked tenderness to palpation -Rule out gluteal cellulitis although bilaterality is unusual -Rule out early necrotizing fasciitis -Rule out other cause loading referred pain from #2 -Status post I & D of right buttocks abscess 02/17 (details unclear) 2. Type 2 diabetes mellitus -Poor glycemic control -Hemoglobin A1c of > [address] Mead's note -DKA 3. Lactic acidosis -Likely secondary to #1 and #2 5. History of paroxysmal atrial fibrillation -In sinus rhythm at present on exam 6. Leukocytosis -Secondary to #1 and #2 PLAN: 1. Follow up on admission blood cultures (NGTD) 2. Will continue vancomycin and add back Zosyn pending further culture data 3. Await culture results from abscess that was drained today 4. Glycemic control as per Dr. Mead 5. Follow clinical exam closely for evidence of necrotizing fasciitis Xavier Ruby MD [facility] Office: [phone] Subjective Date of service: 02/18/16 Principal diagnosis: Bilateral gluteal cellulitis Interval history: Still with significant bilateral gluteal pain. No subjective fevers or chills. Tolerating antibiotics well to date. Status post abscess drainage by Dr. Rothman earlier today. Objective - Exam Narrative Exam: GENERAL: Well-developed, well-nourished appearing male who is alert and in no acute distress but still lying on his side avoiding pressure to the gluteal areas. HEAD: Normocephalic. No lesions seen. EYES: Pupils are equal reactive to light and accommodation. There is no scleral icterus. Optic fundi are not examined. EARS: Tympanic membranes are normal. THROAT: Oropharynx is normal with no evidence of oral candidiasis or pharyngitis. Poor dentition but no obvious dental infection seen. NECK: Supple. No enlargement of the thyroid gland. No significant cervical lymphadenopathy. No jugular venous distention at 30. LUNGS: Clear with no adventitious sounds. HEART: Regular rate. S1 and S2 are normal. There are no murmurs, gallops, clicks or rubs heard. ABDOMEN: Soft and nontender. Liver and spleen are not palpably enlarged or tender. No palpable masses. Bowel sounds are normoactive. EXTREMITIES: No rash, peripheral lymphadenopathy, clubbing or edema. Bilateral induration and exquisite tenderness over both gluteal areas with no definite fluctuance nor crepitus. There is moderate increased warmth but no erythema seen. : Normal external male. No penile lesions or urethral discharge. No testicular masses or tenderness. NEUROLOGIC: No focal findings. - Constitutional Vitals: Vital Signs Temp Pulse Resp BP Pulse Ox 98.4 F 99 H 20 117/58 96 02/18/16 11:45 02/18/16 11:45 02/18/16 11:45 02/18/16 11:45 02/18/16 08:20 Temperature -Last 24 Hours Temperature 98.4 F Temperature 100.5 F Temperature 99.3 F Temperature 98.6 F Temperature 103 F Temperature 98.3 F - Labs CBC & Chem 7: 02/18/16 07:02 02/18/16 07:02 Labs: Abnormal lab results Laboratory Tests 02/17/16 17:19 Ketones 15.9 H Microbiology 02/18/16 11:30 Buttock Wound Culture - Pending. Gram stain with no PMNs and no organisms 02/16/16 Unknown Peripheral/Venous Blood Culture - Preliminary NO GROWTH AFTER 24 HOURS 02/16/16 Unknown Peripheral/Venous Blood Culture - Preliminary NO GROWTH AFTER 24 HOURS Imagin/23: CT abdomen/pelvis: Subcutaneous induration dorsal to the sacrum and coccyx a loculated fluid collection measuring 2.58.3 x 8.3 cm suggestive of early abscess
--- NOTE | 2016-02-18 16:42 | Event Note ---
Date: 02/18/[address] scan and reviewed note by Dr. Rothman. Patient would best benefit from I&D over percutaneous drain as the fluid and gas is less than 1 cm from the skin surface. Patient had I&D earlier today. No need for percutaneous drainage. Discussed with Dr. Mead
[2016-02-18] MEDS: K-PHOS NEUTRAL PO SCH ×2 (21:45→21:46)
[2016-02-19] MEDS: TESSALON PERLES PO PRN ×2 (01:01→08:00)
[2016-02-19] MEDS: NACL 0.9% 1000 ML 1,000 ML IV SCH (06:04)
[2016-02-19] MEDS: ZOSYN/NS 4.5GM/100ML 100 ML IV SCH ×3 (06:05→22:10)
[2016-02-19 07:36] LABS: Hematocrit 34.2 % (35.5-45.6); Hemoglobin 11.5 gm/dl (11.8-15.2); Mean Corpuscular HGB Conc 34 % (32-34); Mean Corpuscular Hemoglobin 30 pg (28-32); Mean Corpuscular Volume 90 fl (84-94); Platelet Count 328 K/mm3 (140-440); Red Blood Count 3.81 M/mm3 (3.65-5.03); Red Cell Distribution Width 12.8 % (13.2-15.2); White Blood Count 15.7 K/mm3 (4.5-11.0)
[2016-02-19] MEDS: MORPHINE IV PRN ×2 (08:01→23:30)
[2016-02-19] MEDS: NOVOLOG SUB-Q SCH ×4 (08:01→22:20)
[2016-02-19 08:15] LABS: Alanine Aminotransferase 26 units/L (7-56); Albumin/Globulin Ratio 0.6 %; Alkaline Phosphatase 84 units/L (35-129); Anion Gap 23 mmol/L; BUN/Creatinine Ratio 15.71; Bilirubin,Total 0.3 mg/dL (0.1-1.2); Blood Urea Nitrogen 11 mg/dL (9-20); Calcium 7.4 mg/dL (8.4-10.2); Carbon Dioxide 17 mmol/L (22-30); Chloride 95.3 mmol/L (98-107); Glucose 270 mg/dL (75-100); Potassium 3.6 mmol/L (3.6-5.0); Sodium 132 mmol/L (137-145); Total Protein 5.4 g/dL (6.3-8.2)
[2016-02-19 09:05] LABS: Blastocytes % (Manual) 0 %
[2016-02-19 09:06] LABS: Basophils % (Manual) 0 % (0.0-1.8); Eosinophils % (Manual) 0 % (0.0-4.3)
[2016-02-19 09:07] LABS: Burr Cells 1+
[2016-02-19 09:08] LABS: Diff Status Complete
[2016-02-19] MEDS: ZESTRIL PO SCH (09:36)
[2016-02-19] MEDS: ECOTRIN PO SCH (09:36)
[2016-02-19] MEDS: COLACE PO SCH ×2 (09:36→22:10)
[2016-02-19] MEDS: K-PHOS NEUTRAL PO SCH ×4 (09:36→22:10)
[2016-02-19] MEDS: LANOXIN PO SCH (09:37)
[2016-02-19] MEDS: GLUCOPHAGE PO SCH ×2 (09:37→22:10)
[2016-02-19] MEDS: SENOKOT PO SCH ×2 (10:29→22:10)
[2016-02-19] MEDS: VANCOMYCIN VIAL 1,250 MG in NACL 0.9% 250ML 250 ML IV SCH ×2 (11:28→23:30)
[2016-02-19] MEDS: HYDROMET PO PRN (11:28)
--- NOTE | 2016-02-19 12:22 | Progress Note ---
Assessment and Plan 1. Cotninue IV antibiotics. F/U cultures. 2 WBC is decreasing and the patient has been afebrile for past 24hrs. 3. Will monitor closely. At this point, there are no obvious areas of fluctuance on physical exam for further I&D. Subjective Date of service: 02/19/16 Narrative: The patient states that his pain over his upper buttocks is better than yesterday. Objective Vital Signs - 12hr 02/19/16 08:28 Temperature 97.7 F Pulse Rate [ 134 H Right Radial] Respiratory 24 Rate Blood Pressure 138/60 [Right Arm] O2 Sat by Pulse 92 Oximetry - Abdomen soft (The area of induration over B/L upper buttocks is less tender and extensive. No signs of blistering or spreading erythema.) - Labs 02/19/16 06:52 02/19/16 06:52 Diabetes panel 02/19/16 Range/Units 06:52 Sodium 132 L (137-145) mmol/L Potassium 3.6 (3.6-5.0) mmol/L Chloride 95.3 L (98-107) mmol/L Carbon Dioxide 17 L (22-30) mmol/L BUN 11 (9-20) mg/dL Creatinine 0.7 L (0.8-1.5) mg/dL Glucose 270 H (75-100) mg/dL Calcium 7.4 L (8.4-10.2) mg/dL AST 35 (5-40) units/L ALT 26 (7-56) units/L Alkaline Phosphatase 84 (35-129) units/L Total Protein 5.4 L (6.3-8.2) g/dL Albumin 2.0 L (3.9-5) g/dL Calcium panel 02/19/16 Range/Units 06:52 Calcium 7.4 L (8.4-10.2) mg/dL Albumin 2.0 L (3.9-5) g/dL Pituitary panel 02/19/16 Range/Units 06:52 Sodium 132 L (137-145) mmol/L Potassium 3.6 (3.6-5.0) mmol/L Chloride 95.3 L (98-107) mmol/L Carbon Dioxide 17 L (22-30) mmol/L BUN 11 (9-20) mg/dL Creatinine 0.7 L (0.8-1.5) mg/dL Glucose 270 H (75-100) mg/dL Calcium 7.4 L (8.4-10.2) mg/dL Adrenal panel 02/19/16 Range/Units 06:52 Sodium 132 L (137-145) mmol/L Potassium 3.6 (3.6-5.0) mmol/L Chloride 95.3 L (98-107) mmol/L Carbon Dioxide 17 L (22-30) mmol/L BUN 11 (9-20) mg/dL Creatinine 0.7 L (0.8-1.5) mg/dL Glucose 270 H (75-100) mg/dL Calcium 7.4 L (8.4-10.2) mg/dL Total Bilirubin 0.3 (0.1-1.2) mg/dL AST 35 (5-40) units/L ALT 26 (7-56) units/L Alkaline Phosphatase 84 (35-129) units/L Total Protein 5.4 L (6.3-8.2) g/dL Albumin 2.0 L (3.9-5) g/dL
[2016-02-19] MEDS ORDERED: ZOFRAN IV PRN (13:10)
[2016-02-19] MEDS ORDERED: LOVENOX SUB-Q SCH (14:00)
--- NOTE | 2016-02-19 14:02 | Progress Note ---
Assessment and Plan 1. Uncontrolled diabetes mellitus: Further optimize glycemic control. Commence patient on Lantus 30 units every 12. Continue with sliding scale insulin 2. Terrell gluteal abcess: F/u with blood Cx. continue with Zosyn and Vanc 3. SIRS: continue with iv antibiotic and tend lactic acid level 4. Hypophasphatemia: Suplement 5. Chronic A. fib. Patient on anticoagulation with Lovenox. We'll obtain 12- lead EKG, consider Amiodarone in view of blood pressure at his in the Low Side of Normal. 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 - Patient Problems (1) Gluteal abscess Diagnosis Date: 02/17/16 Current Visit: Yes Status: Acute (2) Diabetes mellitus Diagnosis Date: 02/17/16 Current Visit: Yes Status: Acute Qualifiers: Diabetes mellitus type: type 2 Diabetes mellitus complication status: with skin complications Diabetes mellitus senior living insulin use: without senior living use (3) H/O atrial fibrillation without current medication Diagnosis Date: 02/17/16 Current Visit: Yes Status: Acute (4) SIRS (systemic inflammatory response syndrome) Diagnosis Date: 02/17/16 Current Visit: Yes Status: Acute (5) Hyponatremia Diagnosis Date: 02/17/16 Current Visit: Yes Status: Acute Subjective Date of service: 02/19/16 Principal diagnosis: Bilateral gluteal cellulitis Interval history: feeling slightly better. No fever. Having palpitations. Patient has a history of chronic A. fib Objective - Constitutional Vitals: Vital Signs - 12hr 02/19/16 02/19/16 08:28 12:01 Temperature 97.7 F 98.7 F Pulse Rate [ 134 H 134 H Right Radial] Respiratory 24 20 Rate Blood Pressure 138/60 140/56 [Right Arm] O2 Sat by Pulse 92 Oximetry General appearance: Present: no acute distress - EENT Eyes: PERRL - Neck Neck: supple - Respiratory Respiratory: bilateral: CTA - Cardiovascular Rhythm: regular Heart Sounds: Present: S1 & S2 Extremities: no ischemia - Gastrointestinal General gastrointestinal: Present: soft, non-tender - Musculoskeletal Musculoskeletal: other (still indurated and tender in the gluteal area. Slight ID was done by the bedside yesterday however no packings were seen) - Neurologic Neurologic: CNII-XII intact - Psychiatric Psychiatric: appropriate mood/affect - Labs CBC & Chem 7: 02/19/16 06:52 02/19/16 06:52 Labs: Abnormal lab results 02/18/16 02/18/16 02/19/16 Range/Units 16:39 21:24 05:37 WBC (4.5-11.0) K/mm3 Hgb (11.8-15.2) gm/dl Hct (35.5-45.6) % RDW (13.2-15.2) % Seg Neuts % (Manual) (40.0-70.0) % Lymphocytes % (Manual) (13.4-35.0) % Seg Neutrophils # Man (1.8-7.7) K/mm3 Lymphocytes # (Manual) (1.2-5.4) K/mm3 Monocytes # (Manual) (0.0-0.8) K/mm3 Sodium (137-145) mmol/L Chloride (98-107) mmol/L Carbon Dioxide (22-30) mmol/L Creatinine (0.8-1.5) mg/dL Glucose (75-100) mg/dL POC Glucose 286 H 309 H 255 H (70-105) Calcium (8.4-10.2) mg/dL Total Protein (6.3-8.2) g/dL Albumin (3.9-5) g/dL 02/19/16 02/19/16 Range/Units 06:52 06:52 WBC 15.7 H (4.5-11.0) K/mm3 Hgb 11.5 L (11.8-15.2) gm/dl Hct 34.2 L (35.5-45.6) % RDW 12.8 L (13.2-15.2) % Seg Neuts % (Manual) 79.0 H (40.0-70.0) % Lymphocytes % (Manual) 2.0 L (13.4-35.0) % Seg Neutrophils # Man 12.4 H (1.8-7.7) K/mm3 Lymphocytes # (Manual) 0.3 L (1.2-5.4) K/mm3 Monocytes # (Manual) 1.1 H (0.0-0.8) K/mm3 Sodium 132 L (137-145) mmol/L Chloride 95.3 L (98-107) mmol/L Carbon Dioxide 17 L (22-30) mmol/L Creatinine 0.7 L (0.8-1.5) mg/dL Glucose 270 H (75-100) mg/dL POC Glucose (70-105) Calcium 7.4 L (8.4-10.2) mg/dL Total Protein 5.4 L (6.3-8.2) g/dL Albumin 2.0 L (3.9-5) g/dL
--- NOTE | 2016-02-19 15:25 | Consultation ---
History of Present Illness Consult date: 02/19/16 Requesting physician: FÁTIMA ALVARADO Consult reason: atrial fibrillation History of present illness: He has a history of unspecified arrhythmia, probably paroxysmal atrial fibrillation. He has not been to our office since July 2014. He presented to Dr. Alvarado's office with uncontrolled diabetes and gluteal abscess for which he was admitted. CT scan of the abdomen revealed subcutaneous induration dorsal to the sacrum and coccyx with possible infection. Since presentation, he has been in atrial fibrillation with rapid ventricular rate. He denies chest pain, dyspnea, palpitations, or dizziness. Past History Past Medical History: arrhythmia (unspecified), diabetes, hypertension, hyperlipidemia, other (normal coronary arteries in May 2003) Past Surgical History: No surgical history Social history: denies: smoking, alcohol abuse Family history: denies: CAD Medications and Allergies Allergies Allergy/AdvReac Type Severity Reaction Status Date / Time No Known Allergies Allergy Verified 02/16/16 21:14 Home Medications Medication Instructions Recorded Confirmed Last Taken Type Acebutolol HCl [Sectral] 400 mg PO QDAY 02/16/16 02/16/16 Unknown History Aspirin EC [Ecotrin] 325 mg PO QDAY 02/16/16 02/16/16 Unknown History AtorvaSTATin [Lipitor] 40 mg PO DAILY 02/16/16 02/16/16 Unknown History Digoxin 250 mcg PO DAILY 02/16/16 02/16/16 Unknown History Lisinopril [Zestril] 20 mg PO QDAY 02/16/16 02/16/16 Unknown History metFORMIN [Glucophage] 850 mg PO BID 02/16/16 02/16/16 Unknown History Active Meds: Active Medications Acetaminophen (Tylenol) 650 mg PO Q4H PRN PRN Reason: non cardiac pain or fever Last Admin: 02/17/16 21:03 Dose: 650 mg Aspirin (Ecotrin) 325 mg PO QDAY [facility] Last Admin: 02/19/16 09:36 Dose: 325 mg Atorvastatin Calcium (Lipitor) 40 mg PO DAILY [facility] Last Admin: 02/19/16 09:37 Dose: 40 mg Benzonatate (Tessalon Perles) 100 mg PO Q6HR PRN PRN Reason: Cough Last Admin: 02/19/16 08:00 Dose: 100 mg Dextrose (D50w (25gm)) 50 ml IV PRN PRN PRN Reason: Hypoglycemia Digoxin (Lanoxin) 0.25 mg PO DAILY [facility] Last Admin: 02/19/16 09:37 Dose: 0.25 mg Docusate Sodium (Colace) 100 mg PO Q12HR [facility] Last Admin: 02/19/16 09:36 Dose: 100 mg Enoxaparin Sodium (Lovenox) 80 mg SUB-Q Q12HR [facility] Hydrocodone Bit/Homatropine Methylb (Hydromet) 10 ml PO Q6H PRN PRN Reason: Cough Last Admin: 02/19/16 11:28 Dose: 10 ml Sodium Chloride (Nacl 0.9% 1000 Ml) 1,000 mls @ 75 mls/hr IV DIRECT [facility] Last Admin: 02/19/16 06:04 Dose: 125 mls/hr Vancomycin HCl 1,250 mg/ (Sodium Chloride) 250 mls @ 166.667 mls/hr IV Q12H [facility] Last Admin: 02/19/16 11:28 Dose: 166.667 mls/hr Piperacillin Sod/Tazobactam Sod (Zosyn/Ns 4.5gm/100ml) 100 mls @ 200 mls/hr IV Q8HR [facility] PRN Reason: Protocol Last Admin: 02/19/16 13:21 Dose: 200 mls/hr Insulin Aspart (Novolog) 0 units SUB-Q ACHS [facility] PRN Reason: Protocol Last Admin: 02/19/16 11:29 Dose: 6 units Insulin Detemir (Levemir) 15 units SUB-Q BID [facility] Lisinopril (Zestril) 20 mg PO QDAY [facility] Last Admin: 02/19/16 09:36 Dose: 20 mg Metformin HCl (Glucophage) 850 mg PO BID [facility] Last Admin: 02/19/16 09:37 Dose: 850 mg Miscellaneous Medication (Acebutolol Hcl [Sectral]) 400 mg PO QDAY [facility] Morphine Sulfate (Morphine) 2 mg IV Q4H PRN PRN Reason: Pain, Moderate (4-6) Last Admin: 02/19/16 08:01 Dose: 2 mg Ondansetron HCl (Zofran) 4 mg IV Q6H PRN PRN Reason: Nausea And Vomiting Senna (Senokot) 8.6 mg PO Q12HR [facility] Last Admin: 02/19/16 10:29 Dose: Not Given Sodium Phosphate (K-Phos Neutral) 250 mg PO QID [facility] Stop: 02/20/16 23:59 Last Admin: 02/19/16 13:20 Dose: 250 mg Temazepam (Restoril) 30 mg PO QHS [facility] Vancomycin HCl (Vancomycin Pharmacy To Dose) 1 each IV PKCONSULT [facility] PRN Reason: Protocol Review of Systems Constitutional: no fever, no chills Ears, nose, mouth and throat: no ear pain, no ear discharge, no sore throat Cardiovascular: no chest pain, no palpitations, no lightheadedness, no shortness of breath Respiratory: no cough, no hemoptysis Gastrointestinal: no abdominal pain, no nausea, no vomiting, no diarrhea, no constipation Genitourinary Male: no dysuria, no urinary frequency Musculoskeletal: other (Buttock pain) Integumentary: no rash, no pruritis Neurological: no parathesias, no numbness, no tingling, no headaches Endocrine: no cold intolerance, no heat intolerance Hematologic/Lymphatic: no easy bruising, no easy bleeding Allergic/Immunologic: no urticaria, no angioedema Physical Examination Vital Signs Last Vital Signs Temp 98.7 F 02/19/16 12:01 Pulse 134 H 02/19/16 12:01 Resp 20 02/19/16 12:01 BP 140/56 02/19/16 12:01 Pulse Ox 92 02/19/16 08:28 General appearance: no acute distress HEENT: Positive: EOMI, Normocephaly, Mucus Membranes Moist Neck: Positive: neck supple, trachea midline Cardiac: Positive: irregularly irregular, S1/S2 Lungs: Positive: clear to auscultation Neuro: Positive: Grossly Intact Abdomen: Positive: Soft, Active Bowel Sounds. Negative: Tender Skin: Positive: Clear. Negative: Rash Musculoskeletal: Normal Range of Motion, other (tenderness over the buttock area ) Extremities: Present: normal. Absent: edema Results 02/19/16 06:52 02/19/16 06:52 Cardiac Enzymes 02/19/16 Range/Units 06:52 AST 35 (5-40) units/L CBC 02/19/16 Range/Units 06:52 WBC 15.7 H (4.5-11.0) K/mm3 RBC 3.81 (3.65-5.03) M/mm3 Hgb 11.5 L (11.8-15.2) gm/dl Hct 34.2 L (35.5-45.6) % Plt Count 328 (140-440) K/mm3 Comprehensive Metabolic Panel 02/19/16 Range/Units 06:52 Sodium 132 L (137-145) mmol/L Potassium 3.6 (3.6-5.0) mmol/L Chloride 95.3 L (98-107) mmol/L Carbon Dioxide 17 L (22-30) mmol/L BUN 11 (9-20) mg/dL Creatinine 0.7 L (0.8-1.5) mg/dL Glucose 270 H (75-100) mg/dL Calcium 7.4 L (8.4-10.2) mg/dL AST 35 (5-40) units/L ALT 26 (7-56) units/L Alkaline Phosphatase 84 (35-129) units/L Total Protein 5.4 L (6.3-8.2) g/dL Albumin 2.0 L (3.9-5) g/dL - Imaging and Cardiology EKG: image reviewed EKG interpretations - Telemetry EKG Rhythm: Atrial Fibrillation (with RVR) Repolarization changes or abnormalities: nonspecific abnormality, ST segment, and/or T wave Assessment and Plan The exact duration of his current episode of atrial fibrillation is uncertain. I will initiate Beta james therapy and obtain digoxin level. Obtain echocardiogram. He will benefit from anticoagulation. However, due to his recent to procedure, I will hold off until it is safe from a surgical surgical standpoint to initiate full anticoagulation. - Patient Problems (1) Atrial fibrillation with rapid ventricular response Current Visit: Yes Status: Acute (2) Gluteal abscess Diagnosis Date: 02/17/16 Current Visit: Yes Status: Acute (3) Uncontrolled diabetes mellitus Current Visit: Yes Status: Acute Qualifiers: Diabetes mellitus type: type 2 (4) Hypertension Current Visit: Yes Status: Chronic Qualifiers: Hypertension type: essential hypertension Qualified Code(s): I10 - Essential (primary) hypertension
--- NOTE | 2016-02-19 15:43 | Progress Note ---
Assessment and Plan Vancomycin 1250 mg IV q12h 02/15 --> Previous antibiotics: Zosyn 4.5 g IV X 1 02/15 ASSESSMENT: Rajeev Hsu is a 70-year-old male with type 2 diabetes mellitus, paroxysmal atrial fibrillation and hypertension who was admitted to [facility] on 02/16/[address] Mead and his office with hyperglycemia and bilateral gluteal pain that started suddenly early on 02/07/16. CT scan shows a possible early abscess in the precoccygeal/presacral area. Problem list: 1. Severe bilateral gluteal infection with significant induration and pain -Associated induration and increased warmth and marked tenderness to palpation -Rule out gluteal cellulitis although bilaterality is unusual -Rule out early necrotizing fasciitis -Rule out other cause loading referred pain from #2 -Status post I & D of right buttocks abscess 02/17 2. Type 2 diabetes mellitus -Poor glycemic control -Hemoglobin A1c of > [address] Mead's note -DKA 3. Lactic acidosis -Likely secondary to #1 and #2 5. History of paroxysmal atrial fibrillation -In sinus rhythm at present on exam 6. Leukocytosis -Secondary to #1 and #2 PLAN: 1. continue vancomycin and Zosyn 2. Await culture results from abscess that was drained 3. will evaluate in 24 hours Subjective Date of service: 02/19/16 Principal diagnosis: Bilateral gluteal cellulitis Interval history: Patient complains of bilateral gluteal pain and swelling Objective - Constitutional Vitals: Selected Entries 02/19/16 12:01 Temperature 98.7 F Pulse Rate [ 134 H Right Radial] Respiratory 20 Rate Blood Pressure 140/56 [Right Arm] Blood Pressure 84 Mean [Right Arm ] General appearance: Present: no acute distress, well-nourished - EENT Eyes: PERRL, no scleral icterus, no conjunctival injection ENT: hearing intact, clear oral mucosa, no oropharyngeal erythema - Neck Neck: supple, normal ROM - Respiratory Respiratory effort: normal Respiratory: bilateral: CTA - Breasts Breasts: deferred - Cardiovascular Rhythm: regular Heart Sounds: Present: S1 & S2 Extremities: no ischemia, No edema - Gastrointestinal General gastrointestinal: Present: soft, non-tender, normal bowel sounds Rectal Exam: deferred - Genitourinary Male genitourinary: deferred - Additional findings Additional findings: bilateral gluteal swelling and tenderness, indurated - Labs CBC & Chem 7: 02/19/16 06:52 02/19/16 06:52 Labs: Microbiology 02/18/16 11:30 Buttock Wound Culture - Preliminary 02/16/16 Unknown Peripheral/Venous Blood Culture - Preliminary NO GROWTH AFTER 48 HOURS 02/16/16 Unknown Peripheral/Venous Blood Culture - Preliminary NO GROWTH AFTER 48 HOURS Laboratory Tests 02/19/16 02/19/16 06:52 06:52 WBC 15.7 H Plt Count 328 Creatinine 0.7 L
[2016-02-19] MEDS ORDERED: ZESTRIL PO SCH (15:49)
[2016-02-19] MEDS: LOPRESSOR PO SCH ×2 (17:05→22:36)
[2016-02-19] MEDS: LEVEMIR SUB-Q SCH (17:06)
[2016-02-19] MEDS: RESTORIL PO SCH (22:10)
[2016-02-19] MEDS: LOVENOX SUB-Q SCH (22:10)
[2016-02-20] MEDS: NACL 0.9% 1000 ML 1,000 ML IV SCH ×2 (03:04→23:31)
[2016-02-20] MEDS: LOPRESSOR PO SCH ×4 (04:22→23:59)
[2016-02-20] MEDS: MORPHINE IV PRN ×2 (04:23→23:37)
[2016-02-20] MEDS: ZOSYN/NS 4.5GM/100ML 100 ML IV SCH ×3 (05:53→23:32)
[2016-02-20 07:44] LABS: Hemoglobin 11.2 gm/dl (11.8-15.2); Mean Corpuscular HGB Conc 34 % (32-34); Mean Corpuscular Hemoglobin 31 pg (28-32); Mean Corpuscular Volume 91 fl (84-94); Platelet Count 335 K/mm3 (140-440); Red Blood Count 3.64 M/mm3 (3.65-5.03); Red Cell Distribution Width 12.9 % (13.2-15.2); White Blood Count 14.7 K/mm3 (4.5-11.0)
[2016-02-20 08:07] LABS: Alanine Aminotransferase 25 units/L (7-56); Albumin 1.7 g/dL (3.9-5); Albumin/Globulin Ratio 0.5 %; Alkaline Phosphatase 69 units/L (35-129); Anion Gap 19 mmol/L; BUN/Creatinine Ratio 11.66; Bilirubin,Total 0.3 mg/dL (0.1-1.2); Blood Urea Nitrogen 7 mg/dL (9-20); Calcium 7.2 mg/dL (8.4-10.2); Carbon Dioxide 23 mmol/L (22-30); Chloride 99.1 mmol/L (98-107); Glucose 129 mg/dL (75-100); Sodium 138 mmol/L (137-145); Total Protein 5.1 g/dL (6.3-8.2)
[2016-02-20 08:59] LABS: Basophils % (Manual) 0 % (0.0-1.8); Blastocytes % (Manual) 0 %; Diff Status Complete; Eosinophils % (Manual) 0 % (0.0-4.3); Large Platelets Few; RBC Morphology Normal
[2016-02-20] MEDS: NOVOLOG SUB-Q SCH ×4 (09:48→23:33)
[2016-02-20] MEDS: LANOXIN PO SCH (09:49)
[2016-02-20] MEDS: K-PHOS NEUTRAL PO SCH ×4 (09:49→23:36)
[2016-02-20] MEDS: SENOKOT PO SCH ×2 (09:50→23:37)
[2016-02-20] MEDS: LOVENOX SUB-Q SCH ×2 (09:52→23:34)
[2016-02-20] MEDS: ECOTRIN PO SCH (09:52)
[2016-02-20] MEDS: ZESTRIL PO SCH (09:52)
[2016-02-20] MEDS: LEVEMIR SUB-Q SCH ×2 (09:52→23:33)
[2016-02-20] MEDS: GLUCOPHAGE PO SCH ×2 (09:52→23:36)
[2016-02-20] MEDS: COLACE PO SCH ×2 (09:53→23:36)
--- NOTE | 2016-02-20 10:57 | Progress Note ---
Assessment and Plan Vancomycin 1250 mg IV q12h 02/15 --> Zosyn 4.5 g IV Q8H (02/15 ASSESSMENT: Rajeev Hsu is a 70-year-old male with type 2 diabetes mellitus, paroxysmal atrial fibrillation and hypertension who was admitted to [facility] on 02/16/[address] Mead and his office with hyperglycemia and bilateral gluteal pain that started suddenly early on 02/07/16. CT scan shows a possible early abscess in the precoccygeal/presacral area. Problem list: 1. Severe bilateral gluteal infection with significant induration and pain, the left buttock is more indurated and equisitely tender. Operative cultures without growth so far. He did have drainage of the 2.5 x8.3 x 8.0 cm abscess that was dorsal to the sacrum. -will continue current broad spectrum antibiotics. might need to evaluate with a repeat CT scan if no improvement in induration -Status post I & D of right buttocks abscess 02/17 2. Type 2 diabetes mellitus -Poor glycemic control -Hemoglobin A1c of > [address] Mead's note -DKA 3. Lactic acidosis -Likely secondary to #1 and #2 5. History of paroxysmal atrial fibrillation -In sinus rhythm at present on exam 6. Leukocytosis -Secondary to #1 and #2 PLAN: 1. continue vancomycin and Zosyn 2. Await culture results from abscess that was drained 3. will revisit in 24 hours. 4. vancomycin trough to be managed by pharmacy Subjective Date of service: 02/20/16 Principal diagnosis: Bilateral gluteal cellulitis Interval history: Patient still has significant buttock pain, he is unable to apply pressure to the area. Objective - Constitutional Vitals: Selected Entries 02/20/16 07:12 Temperature 98.1 F Pulse Rate [ 99 H Right Radial] Respiratory 16 Rate O2 Sat by Pulse 98 Oximetry Blood Pressure 127/58 [Right Arm] Blood Pressure 81 Mean [Right Arm ] General appearance: Present: no acute distress, well-nourished - EENT Eyes: PERRL, EOM intact, no scleral icterus, no conjunctival injection ENT: hearing intact, clear oral mucosa, edentulous Ears: bilateral: normal - Neck Neck: supple, normal ROM, no enlarged thyroid, no masses or JVD - Respiratory Respiratory effort: normal Respiratory: bilateral: CTA - Breasts Breasts: deferred - Cardiovascular Rhythm: regular Heart Sounds: Present: S1 & S2 Extremities: pulses intact, No edema, normal temperature - Gastrointestinal General gastrointestinal: Present: soft, non-tender, normal bowel sounds Rectal Exam: deferred - Genitourinary Male genitourinary: deferred - Integumentary Integumentary: clear, warm, no jaundice, no rash - Psychiatric Psychiatric: appropriate mood/affect, cooperative - Additional findings Additional findings: bilateral gluteal area edema, induration which is worse on the left. no open wounds, no erythema - Labs CBC & Chem 7: 02/20/16 07:08 02/20/16 07:08 Labs: Microbiology 02/18/16 11:30 Buttock Wound Culture - Preliminary 02/16/16 Unknown Peripheral/Venous Blood Culture - Preliminary NO GROWTH AFTER 72 HOURS 02/16/16 Unknown Peripheral/Venous Blood Culture - Preliminary NO GROWTH AFTER 72 HOURS Laboratory Tests 02/17/16 02/20/16 02/20/16 17:19 07:08 07:08 WBC 14.7 H Plt Count 335 Creatinine 0.6 L Estimated GFR > 60 Ketones 15.9 H
--- NOTE | 2016-02-20 11:47 | Progress Note ---
Assessment and Plan 1. F/U cultures, con't IV antibiotics Subjective Date of service: 02/20/16 Narrative: The patient reports that his pain/tenderness is improving. Objective Vital Signs - 12hr 02/20/16 02/20/16 02/20/16 00:00 00:05 04:00 Temperature 100.7 F H 98.3 F Pulse Rate Pulse Rate [ 95 H 107 H Right Radial] Respiratory 18 20 20 Rate Blood Pressure Blood Pressure 100/52 118/58 [Right Arm] O2 Sat by Pulse 98 Oximetry 02/20/16 02/20/16 02/20/16 04:22 04:23 07:12 Temperature 98.1 F Pulse Rate 107 H Pulse Rate [ 99 H Right Radial] Respiratory 22 16 Rate Blood Pressure 118/58 Blood Pressure 127/58 [Right Arm] O2 Sat by Pulse 98 Oximetry 02/20/16 11:05 Temperature 98.1 F Pulse Rate Pulse Rate [ 105 H Right Radial] Respiratory 14 Rate Blood Pressure Blood Pressure 116/54 [Right Arm] O2 Sat by Pulse 99 Oximetry - Abdomen soft (R buttock tenderness to palpation/induration is significantly less. The L buttock is ammonia distiller to palpation with unduration but it is decreasing. Minimal erythema. ) - Labs 02/20/16 07:08 02/20/16 07:08 Diabetes panel 02/20/16 Range/Units 07:08 Sodium 138 (137-145) mmol/L Potassium 3.0 L (3.6-5.0) mmol/L Chloride 99.1 (98-107) mmol/L Carbon Dioxide 23 (22-30) mmol/L BUN 7 L (9-20) mg/dL Creatinine 0.6 L (0.8-1.5) mg/dL Glucose 129 H (75-100) mg/dL Calcium 7.2 L (8.4-10.2) mg/dL AST 28 (5-40) units/L ALT 25 (7-56) units/L Alkaline Phosphatase 69 (35-129) units/L Total Protein 5.1 L (6.3-8.2) g/dL Albumin 1.7 L (3.9-5) g/dL Calcium panel 02/20/16 Range/Units 07:08 Calcium 7.2 L (8.4-10.2) mg/dL Albumin 1.7 L (3.9-5) g/dL Pituitary panel 02/20/16 Range/Units 07:08 Sodium 138 (137-145) mmol/L Potassium 3.0 L (3.6-5.0) mmol/L Chloride 99.1 (98-107) mmol/L Carbon Dioxide 23 (22-30) mmol/L BUN 7 L (9-20) mg/dL Creatinine 0.6 L (0.8-1.5) mg/dL Glucose 129 H (75-100) mg/dL Calcium 7.2 L (8.4-10.2) mg/dL Adrenal panel 02/20/16 Range/Units 07:08 Sodium 138 (137-145) mmol/L Potassium 3.0 L (3.6-5.0) mmol/L Chloride 99.1 (98-107) mmol/L Carbon Dioxide 23 (22-30) mmol/L BUN 7 L (9-20) mg/dL Creatinine 0.6 L (0.8-1.5) mg/dL Glucose 129 H (75-100) mg/dL Calcium 7.2 L (8.4-10.2) mg/dL Total Bilirubin 0.3 (0.1-1.2) mg/dL AST 28 (5-40) units/L ALT 25 (7-56) units/L Alkaline Phosphatase 69 (35-129) units/L Total Protein 5.1 L (6.3-8.2) g/dL Albumin 1.7 L (3.9-5) g/dL
[2016-02-20] MEDS: VANCOMYCIN VIAL 1,250 MG in NACL 0.9% 250ML 250 ML IV SCH ×2 (13:16→23:38)
--- NOTE | 2016-02-20 14:50 | Progress Note ---
Assessment and Plan Paroxysmal atrial fibrillation currently SR-ST optimize electrolytes continue metoprolol 50mg Q6H will hold digoxin pending level await echo findings pt. will benefit from OAC, will hold off for now due to recent procedure Gluteal abscess Hypertension Diabetes The patient has been seen in conjunction with Dr. Baldwin who agrees with the assessment and plan of care. Subjective Date of service: 02/20/16 Principal diagnosis: Bilateral gluteal cellulitis, paroxysmal atrial fibrillation Interval history: The patient is resting in bed. Sinus tach with HR low 100s on the monitor currently. Objective Last Vital Signs Temp 98.1 F 02/20/16 11:05 Pulse 105 H 02/20/16 11:05 Resp 14 02/20/16 11:05 BP 116/54 02/20/16 11:05 Pulse Ox 99 02/20/16 11:05 - Physical Examination General: No Apparent Distress HEENT: Positive: EOMI, Normocephaly, Mucus Membranes Moist Neck: Positive: neck supple, trachea midline Cardiac: Positive: Reg Rate and Rhythm, S1/S2 Lungs: Positive: clear to auscultation Neuro: Positive: Grossly Intact Abdomen: Positive: Soft, Active Bowel Sounds. Negative: Tender Skin: Positive: Clear. Negative: Rash Musculoskeletal: Normal Range of Motion, other (tenderness over the buttock area ) Extremities: Present: normal. Absent: edema - Labs and Meds Cardiac Enzymes 02/20/16 Range/Units 07:08 AST 28 (5-40) units/L CBC 02/20/16 Range/Units 07:08 WBC 14.7 H (4.5-11.0) K/mm3 RBC 3.64 L (3.65-5.03) M/mm3 Hgb 11.2 L (11.8-15.2) gm/dl Hct 33.0 L (35.5-45.6) % Plt Count 335 (140-440) K/mm3 Comprehensive Metabolic Panel 02/20/16 Range/Units 07:08 Sodium 138 (137-145) mmol/L Potassium 3.0 L (3.6-5.0) mmol/L Chloride 99.1 (98-107) mmol/L Carbon Dioxide 23 (22-30) mmol/L BUN 7 L (9-20) mg/dL Creatinine 0.6 L (0.8-1.5) mg/dL Glucose 129 H (75-100) mg/dL Calcium 7.2 L (8.4-10.2) mg/dL AST 28 (5-40) units/L ALT 25 (7-56) units/L Alkaline Phosphatase 69 (35-129) units/L Total Protein 5.1 L (6.3-8.2) g/dL Albumin 1.7 L (3.9-5) g/dL - Imaging and Cardiology EKG: image reviewed Echo: pending - Telemetry EKG Rhythm: Sinus Tachycardia Repolarization changes or abnormalities: nonspecific abnormality, ST segment, and/or T wave
[2016-02-20] MEDS ORDERED: MAGNESIUM SULFATE 2GM/50ML 50 ML IV ONE (16:49)
[2016-02-20] MEDS: K-DUR PO SCH ×2 (18:10→23:59)
--- NOTE | 2016-02-20 18:13 | Progress Note ---
Assessment and Plan 1. Diabetes mellitus: Improved. Further optimize glycemic control. Continue with Lantus 30 units every 12. Continue with sliding scale insulin 2. Terrell gluteal abcess: Blood Cx. yielded no growth so far. Continue with Zosyn and Vanc 3. SIRS: continue with iv antibiotic and tend lactic acid level 4. Hypophasphatemia: Suplement 5. Paroxysmal Afib. No NSR. Contiue with Metoprolo per cardiology and still hold digoxin continue anticoagulation with Lovenox. 6. Hyperkalemia: Ssupplemnt. check magnesium level - Patient Problems (1) Gluteal abscess Diagnosis Date: 02/17/16 Current Visit: Yes Status: Acute (2) Diabetes mellitus Diagnosis Date: 02/17/16 Current Visit: Yes Status: Acute Qualifiers: Diabetes mellitus type: type 2 Diabetes mellitus complication status: with skin complications Diabetes mellitus exterminator helper insulin use: without alf use (3) H/O atrial fibrillation without current medication Diagnosis Date: 02/17/16 Current Visit: Yes Status: Acute (4) SIRS (systemic inflammatory response syndrome) Diagnosis Date: 02/17/16 Current Visit: Yes Status: Acute (5) Hyponatremia Diagnosis Date: 02/17/16 Current Visit: Yes Status: Acute Subjective Date of service: 02/20/16 Principal diagnosis: Bilateral gluteal cellulitis, paroxysmal atrial fibrillation Interval history: feeling slightly better. Gluteal induration improving as well at local tenderness. No fever. Having palpitations. Objective - Constitutional Vitals: Vital Signs - 12hr 02/20/16 02/20/16 02/20/16 07:12 11:05 15:16 Temperature 98.1 F 98.1 F 97.9 F Pulse Rate [ 99 H 105 H 110 H Right Radial] Respiratory 16 14 12 Rate Blood Pressure 127/58 116/54 150/63 [Right Arm] O2 Sat by Pulse 98 99 99 Oximetry General appearance: Present: no acute distress - EENT Eyes: PERRL - Neck Neck: supple - Respiratory Respiratory: bilateral: CTA - Cardiovascular Rhythm: regular Heart Sounds: Present: S1 & S2 Extremities: no ischemia - Gastrointestinal General gastrointestinal: Present: soft, non-tender, non-distended - Integumentary Integumentary: warm (induration on both gluteal areas. Also has fullness and tenderness of the pilonidal area) - Musculoskeletal Musculoskeletal: strength equal bilaterally - Neurologic Neurologic: CNII-XII intact - Labs CBC & Chem 7: 02/20/16 07:08 02/20/16 07:08 Labs: Abnormal lab results 02/19/16 02/20/16 02/20/16 Range/Units 21:52 06:05 07:08 WBC 14.7 H (4.5-11.0) K/mm3 RBC 3.64 L (3.65-5.03) M/mm3 Hgb 11.2 L (11.8-15.2) gm/dl Hct 33.0 L (35.5-45.6) % RDW 12.9 L (13.2-15.2) % Seg Neuts % (Manual) 82.0 H (40.0-70.0) % Lymphocytes % (Manual) 2.0 L (13.4-35.0) % Seg Neutrophils # Man 12.1 H (1.8-7.7) K/mm3 Lymphocytes # (Manual) 0.3 L (1.2-5.4) K/mm3 Monocytes # (Manual) 1.0 H (0.0-0.8) K/mm3 Potassium (3.6-5.0) mmol/L BUN (9-20) mg/dL Creatinine (0.8-1.5) mg/dL Glucose (75-100) mg/dL POC Glucose 249 H 135 H (70-105) Calcium (8.4-10.2) mg/dL Total Protein (6.3-8.2) g/dL Albumin (3.9-5) g/dL 02/20/16 02/20/16 02/20/16 Range/Units 07:08 11:25 16:38 WBC (4.5-11.0) K/mm3 RBC (3.65-5.03) M/mm3 Hgb (11.8-15.2) gm/dl Hct (35.5-45.6) % RDW (13.2-15.2) % Seg Neuts % (Manual) (40.0-70.0) % Lymphocytes % (Manual) (13.4-35.0) % Seg Neutrophils # Man (1.8-7.7) K/mm3 Lymphocytes # (Manual) (1.2-5.4) K/mm3 Monocytes # (Manual) (0.0-0.8) K/mm3 Potassium 3.0 L (3.6-5.0) mmol/L BUN 7 L (9-20) mg/dL Creatinine 0.6 L (0.8-1.5) mg/dL Glucose 129 H (75-100) mg/dL POC Glucose 240 H 140 H (70-105) Calcium 7.2 L (8.4-10.2) mg/dL Total Protein 5.1 L (6.3-8.2) g/dL Albumin 1.7 L (3.9-5) g/dL
[2016-02-20] MEDS: KCL 10MEQ/100ML 100 ML IV SCH ×2 (20:52→23:32)
[2016-02-20] MEDS: RESTORIL PO SCH (23:35)
[2016-02-21] MEDS: LOPRESSOR PO SCH ×3 (04:26→17:24)
[2016-02-21] MEDS: KCL 10MEQ/100ML 100 ML IV SCH ×5 (04:35→23:57)
[2016-02-21] MEDS: ZOSYN/NS 4.5GM/100ML 100 ML IV SCH ×2 (05:34→15:44)
[2016-02-21] MEDS: VANCOMYCIN VIAL 1,250 MG in NACL 0.9% 250ML 250 ML IV SCH ×2 (05:58→15:40)
[2016-02-21 08:13] LABS: Hematocrit 32.9 % (35.5-45.6); Hemoglobin 11.3 gm/dl (11.8-15.2); Mean Corpuscular HGB Conc 34 % (32-34); Mean Corpuscular Hemoglobin 31 pg (28-32); Mean Corpuscular Volume 90 fl (84-94); Platelet Count 329 K/mm3 (140-440); Red Blood Count 3.67 M/mm3 (3.65-5.03); Red Cell Distribution Width 13.1 % (13.2-15.2); White Blood Count 13.6 K/mm3 (4.5-11.0)
[2016-02-21 08:37] LABS: Alanine Aminotransferase 28 units/L (7-56); Albumin 1.8 g/dL (3.9-5); Albumin/Globulin Ratio 0.5 %; Alkaline Phosphatase 77 units/L (35-129); Anion Gap 15 mmol/L; BUN/Creatinine Ratio 7.14; Bilirubin,Total 0.3 mg/dL (0.1-1.2); Blood Urea Nitrogen 5 mg/dL (9-20); Calcium 7.3 mg/dL (8.4-10.2); Carbon Dioxide 25 mmol/L (22-30); Chloride 98.5 mmol/L (98-107); Glucose 163 mg/dL (75-100); Magnesium 1.7 mg/dL (1.7-2.3); Potassium 3.3 mmol/L (3.6-5.0); Sodium 135 mmol/L (137-145); Total Protein 5.1 g/dL (6.3-8.2)
[2016-02-21] MEDS: ECOTRIN PO SCH (10:11)
[2016-02-21] MEDS: TYLENOL PO PRN ×2 (10:12→19:29)
[2016-02-21] MEDS: ZESTRIL PO SCH (10:12)
[2016-02-21] MEDS: LOVENOX SUB-Q SCH ×2 (10:13→21:23)
[2016-02-21] MEDS: NOVOLOG SUB-Q SCH ×4 (10:13→22:00)
[2016-02-21] MEDS: LEVEMIR SUB-Q SCH (10:14)
[2016-02-21 10:20] LABS: Basophils % (Manual) 0 % (0.0-1.8); Blastocytes % (Manual) 0 %; Diff Status Complete; RBC Morphology Normal
[2016-02-21] MEDS: GLUCOPHAGE PO SCH ×2 (10:24→17:20)
[2016-02-21] MEDS: COLACE PO SCH ×2 (10:27→21:24)
[2016-02-21] MEDS: SENOKOT PO SCH ×2 (10:27→21:23)
--- NOTE | 2016-02-21 11:33 | Progress Note ---
Assessment and Plan Paroxysmal atrial fibrillation currently SR-ST optimize electrolytes continue metoprolol 50mg Q6H digoxin level 1.3 (02/19)--> will hold for now await echo findings pt. will benefit from OAC, will hold off for now due to recent procedure Gluteal abscess Hypertension Diabetes The patient has been seen in conjunction with Dr. Baldwin who agrees with the assessment and plan of care. Subjective Date of service: 02/21/16 Principal diagnosis: Bilateral gluteal cellulitis, paroxysmal atrial fibrillation Interval history: The patient is resting in bed. Sinus rhythm-sinus tach on the monitor. Unable to complete echo yesterday due to pain. Objective Last Vital Signs Temp 101.9 F H 02/21/16 08:00 Pulse 103 H 02/21/16 10:35 Resp 20 02/21/16 08:00 BP 148/65 02/21/16 10:12 Pulse Ox 97 02/21/16 08:00 - Physical Examination General: No Apparent Distress HEENT: Positive: EOMI, Normocephaly, Mucus Membranes Moist Neck: Positive: neck supple, trachea midline Cardiac: Positive: Regular Rhythm, S1/S2, Tachycardia Lungs: Positive: clear to auscultation Neuro: Positive: Grossly Intact Abdomen: Positive: Soft, Active Bowel Sounds. Negative: Tender Skin: Positive: Clear. Negative: Rash Musculoskeletal: Normal Range of Motion, other (tenderness over the buttock area ) Extremities: Present: normal. Absent: edema - Labs and Meds Cardiac Enzymes 02/21/16 Range/Units 07:45 AST 40 (5-40) units/L CBC 02/21/16 Range/Units 07:45 WBC 13.6 H (4.5-11.0) K/mm3 RBC 3.67 (3.65-5.03) M/mm3 Hgb 11.3 L (11.8-15.2) gm/dl Hct 32.9 L (35.5-45.6) % Plt Count 329 (140-440) K/mm3 Comprehensive Metabolic Panel 02/21/16 Range/Units 07:45 Sodium 135 L (137-145) mmol/L Potassium 3.3 L (3.6-5.0) mmol/L Chloride 98.5 (98-107) mmol/L Carbon Dioxide 25 (22-30) mmol/L BUN 5 L (9-20) mg/dL Creatinine 0.7 L (0.8-1.5) mg/dL Glucose 163 H (75-100) mg/dL Calcium 7.3 L (8.4-10.2) mg/dL AST 40 (5-40) units/L ALT 28 (7-56) units/L Alkaline Phosphatase 77 (35-129) units/L Total Protein 5.1 L (6.3-8.2) g/dL Albumin 1.8 L (3.9-5) g/dL - Imaging and Cardiology EKG: image reviewed Echo: pending - Telemetry EKG Rhythm: Sinus Tachycardia Repolarization changes or abnormalities: nonspecific abnormality, ST segment, and/or T wave
--- NOTE | 2016-02-21 11:57 | Progress Note ---
Assessment and Plan Antibiotics: Vancomycin 1250 mg IV q12h 02/15 --> Zosyn 4.5 g IV Q8H (02/15 ASSESSMENT: Rajeev Hsu is a 70-year-old male with type 2 diabetes mellitus, paroxysmal atrial fibrillation and hypertension who was admitted to [facility] on 02/16/[address] Mead and his office with hyperglycemia and bilateral gluteal pain that started suddenly early on 02/07/16. CT scan shows a possible early abscess in the precoccygeal/presacral area. Problem list: 1. Severe bilateral gluteal infection with significant induration and pain, the left buttock is more indurated and equisitely tender. Operative cultures without growth so far. He did have drainage of the 2.5 x8.3 x 8.0 cm abscess that was dorsal to the sacrum. -will continue current broad spectrum antibiotics. might need to evaluate with a repeat CT scan if no improvement in induration -Status post I & D of right buttocks abscess 02/17 --cultures remain negative --Still with significant induration and pain. Will need to evaluate with a repeat ct scan in the next 24-48 hours to evaluate for organization of abscess 2. Type 2 diabetes mellitus -Poor glycemic control -Hemoglobin A1c of > [address] Mead's note -DKA 3. Lactic acidosis -Likely secondary to #1 and #2 5. History of paroxysmal atrial fibrillation -In sinus rhythm at present on exam 6. Leukocytosis -Secondary to #1 and #2 PLAN: 1. continue vancomycin and Zosyn 2. will repeat CT scan to evaluate for organization of abscess in the next 24- 48 hours. 3. vancomycin trough to be managed by pharmacy Subjective Date of service: 02/21/16 Principal diagnosis: Bilateral gluteal cellulitis, paroxysmal atrial fibrillation Interval history: Patient seen in bed on his right side, he is unable to apply pressure the buttocks secondary to pain Objective - Constitutional Vitals: Selected Entries 02/21/16 02/21/16 02/21/16 08:00 10:12 10:35 Temperature 101.9 F H Pulse Rate 103 H Blood Pressure 148/65 Blood Pressure 92 Mean General appearance: Present: no acute distress, well-nourished - EENT Eyes: PERRL, EOM intact, no scleral icterus, no conjunctival injection ENT: hearing intact, clear oral mucosa Ears: bilateral: normal - Neck Neck: supple, normal ROM - Respiratory Respiratory effort: normal Respiratory: bilateral: CTA - Breasts Breasts: deferred - Cardiovascular Rhythm: regular Heart Sounds: Present: S1 & S2 Extremities: no ischemia, pulses intact, No edema, normal temperature - Gastrointestinal General gastrointestinal: Present: soft, non-tender, normal bowel sounds - Integumentary Integumentary: clear, warm, dry, no jaundice, no rash - Additional findings Additional findings: bilateral gluteal area edema, induration which is worse on the left. no open wounds, no erythema, exquisite tenderness - Labs CBC & Chem 7: 02/21/16 07:45 02/21/16 07:45 Labs: Microbiology 02/18/16 11:30 Buttock Wound Culture - Final 02/16/16 Unknown Peripheral/Venous Blood Culture - Preliminary NO GROWTH AFTER 4 DAYS Laboratory Tests 02/21/16 02/21/16 07:45 07:45 WBC 13.6 H Plt Count 329 Creatinine 0.7 L Estimated GFR > 60
[2016-02-21] MEDS ORDERED: MAGNESIUM SULFATE 2GM/50ML 50 ML IV ONE (13:00)
--- NOTE | 2016-02-21 16:36 | Progress Note ---
Assessment and Plan 1. Overall, symptoms are improving but there is still some tenderness to palpation. Con't IV abx, consider repeat CT in next 48 hrs. Subjective Date of service: 02/21/16 Narrative: The patient states that his pain over his gluteal area is improving but still present. Objective Vital Signs - 12hr 02/21/16 02/21/16 02/21/16 04:45 08:00 10:12 Temperature 99.5 F 101.9 F H Pulse Rate Pulse Rate [ 100 H 103 H Right Radial] Respiratory 20 20 Rate Blood Pressure 148/65 Blood Pressure 141/59 148/65 [Right Arm] O2 Sat by Pulse 97 97 Oximetry 02/21/16 02/21/16 10:35 12:09 Temperature 99 F Pulse Rate 103 H Pulse Rate [ 87 Right Radial] Respiratory 20 Rate Blood Pressure Blood Pressure 118/55 [Right Arm] O2 Sat by Pulse Oximetry - Abdomen soft (Induration is much improved on the R gluteal area. Minimal erythema. The L gluteal area is still indurated but the induration is less. Minimal erythema) - Labs 02/21/16 07:45 02/21/16 07:45 Diabetes panel 02/21/16 Range/Units 07:45 Sodium 135 L (137-145) mmol/L Potassium 3.3 L (3.6-5.0) mmol/L Chloride 98.5 (98-107) mmol/L Carbon Dioxide 25 (22-30) mmol/L BUN 5 L (9-20) mg/dL Creatinine 0.7 L (0.8-1.5) mg/dL Glucose 163 H (75-100) mg/dL Calcium 7.3 L (8.4-10.2) mg/dL AST 40 (5-40) units/L ALT 28 (7-56) units/L Alkaline Phosphatase 77 (35-129) units/L Total Protein 5.1 L (6.3-8.2) g/dL Albumin 1.8 L (3.9-5) g/dL Calcium panel 02/21/16 Range/Units 07:45 Calcium 7.3 L (8.4-10.2) mg/dL Albumin 1.8 L (3.9-5) g/dL Pituitary panel 02/21/16 Range/Units 07:45 Sodium 135 L (137-145) mmol/L Potassium 3.3 L (3.6-5.0) mmol/L Chloride 98.5 (98-107) mmol/L Carbon Dioxide 25 (22-30) mmol/L BUN 5 L (9-20) mg/dL Creatinine 0.7 L (0.8-1.5) mg/dL Glucose 163 H (75-100) mg/dL Calcium 7.3 L (8.4-10.2) mg/dL Adrenal panel 02/21/16 Range/Units 07:45 Sodium 135 L (137-145) mmol/L Potassium 3.3 L (3.6-5.0) mmol/L Chloride 98.5 (98-107) mmol/L Carbon Dioxide 25 (22-30) mmol/L BUN 5 L (9-20) mg/dL Creatinine 0.7 L (0.8-1.5) mg/dL Glucose 163 H (75-100) mg/dL Calcium 7.3 L (8.4-10.2) mg/dL Total Bilirubin 0.3 (0.1-1.2) mg/dL AST 40 (5-40) units/L ALT 28 (7-56) units/L Alkaline Phosphatase 77 (35-129) units/L Total Protein 5.1 L (6.3-8.2) g/dL Albumin 1.8 L (3.9-5) g/dL
[2016-02-21] MEDS: MORPHINE IV PRN (17:25)
--- NOTE | 2016-02-21 17:59 | Progress Note ---
Assessment and Plan 1. Diabetes mellitus: Improved. Further optimize glycemic control. Continue with Lantus 30 units every 12. Continue with sliding scale insulin and 2000 ADA 2. Terrell gluteal abcess: Blood Cx. yielded no growth so far. Continue with Zosyn and Vanc 3. SIRS: continue with iv antibiotic and tend lactic acid level 4. Hypophasphatemia: Supplement 5. Paroxysmal Afib. No NSR. Continue with Metoprolo per cardiology and still hold digoxin continue anticoagulation with Lovenox. 6. Hypokalemia: Supplement further. Normal Magnesium level - Patient Problems (1) Gluteal abscess Diagnosis Date: 02/17/16 Current Visit: Yes Status: Acute Plan to address problem: Needle aspiration of the left gluteus yieded no abcess. Pt Likely has cellulitis. CT scan of gas forming organism noted, though doubtful. Will consult ID and surgeon. Surgicla consult ordered (2) Diabetes mellitus Diagnosis Date: 02/17/16 Current Visit: Yes Status: Acute Qualifiers: Diabetes mellitus type: type 2 Diabetes mellitus complication status: with skin complications Diabetes mellitus terminal computer operator insulin use: without residential use (3) H/O atrial fibrillation without current medication Diagnosis Date: 02/17/16 Current Visit: Yes Status: Acute (4) SIRS (systemic inflammatory response syndrome) Diagnosis Date: 02/17/16 Current Visit: Yes Status: Acute (5) Hyponatremia Diagnosis Date: 02/17/16 Current Visit: Yes Status: Acute Subjective Date of service: 02/21/16 Principal diagnosis: Bilateral gluteal cellulitis, paroxysmal atrial fibrillation Interval history: feeling slightly better. Gluteal induration improving as well at local tenderness. No fever. Palpitations improving. Objective - Constitutional Vitals: Vital Signs - 12hr 02/21/16 02/21/16 02/21/16 08:00 10:12 10:35 Temperature 101.9 F H Pulse Rate 103 H Pulse Rate [ 103 H Right Radial] Respiratory 20 Rate Blood Pressure 148/65 Blood Pressure 148/65 [Right Arm] O2 Sat by Pulse 97 Oximetry 02/21/16 02/21/16 02/21/16 12:09 16:00 17:24 Temperature 99 F 98.4 F Pulse Rate Pulse Rate [ 87 101 H Right Radial] Respiratory 20 20 Rate Blood Pressure 124/59 Blood Pressure 118/55 124/59 [Right Arm] O2 Sat by Pulse Oximetry General appearance: Present: no acute distress - EENT Eyes: PERRL - Neck Neck: supple - Respiratory Respiratory: bilateral: CTA - Cardiovascular Rhythm: regular Heart Sounds: Present: S1 & S2 Extremities: no ischemia, No edema - Gastrointestinal General gastrointestinal: Present: soft, non-tender, non-distended - Integumentary Integumentary: warm (gluteus) - Musculoskeletal Musculoskeletal: strength equal bilaterally - Neurologic Neurologic: CNII-XII intact - Psychiatric Psychiatric: appropriate mood/affect - Labs CBC & Chem 7: 02/21/16 07:45 02/21/16 07:45 Labs: Abnormal lab results 02/20/16 02/21/16 02/21/16 Range/Units 20:43 06:31 07:45 WBC 13.6 H (4.5-11.0) K/mm3 Hgb 11.3 L (11.8-15.2) gm/dl Hct 32.9 L (35.5-45.6) % RDW 13.1 L (13.2-15.2) % Seg Neuts % (Manual) 77.0 H (40.0-70.0) % Lymphocytes % (Manual) 3.0 L (13.4-35.0) % Seg Neutrophils # Man 10.5 H (1.8-7.7) K/mm3 Lymphocytes # (Manual) 0.4 L (1.2-5.4) K/mm3 Sodium (137-145) mmol/L Potassium (3.6-5.0) mmol/L BUN (9-20) mg/dL Creatinine (0.8-1.5) mg/dL Glucose (75-100) mg/dL POC Glucose 236 H 197 H (70-105) Calcium (8.4-10.2) mg/dL Total Protein (6.3-8.2) g/dL Albumin (3.9-5) g/dL 02/21/16 02/21/16 Range/Units 07:45 11:13 WBC (4.5-11.0) K/mm3 Hgb (11.8-15.2) gm/dl Hct (35.5-45.6) % RDW (13.2-15.2) % Seg Neuts % (Manual) (40.0-70.0) % Lymphocytes % (Manual) (13.4-35.0) % Seg Neutrophils # Man (1.8-7.7) K/mm3 Lymphocytes # (Manual) (1.2-5.4) K/mm3 Sodium 135 L (137-145) mmol/L Potassium 3.3 L (3.6-5.0) mmol/L BUN 5 L (9-20) mg/dL Creatinine 0.7 L (0.8-1.5) mg/dL Glucose 163 H (75-100) mg/dL POC Glucose 165 H (70-105) Calcium 7.3 L (8.4-10.2) mg/dL Total Protein 5.1 L (6.3-8.2) g/dL Albumin 1.8 L (3.9-5) g/dL
[2016-02-21] MEDS: RESTORIL PO SCH (21:24)
[2016-02-22] MEDS: LEVEMIR SUB-Q SCH ×3 (00:03→21:45)
[2016-02-22] MEDS: LOPRESSOR PO SCH ×5 (01:01→21:44)
[2016-02-22] MEDS: MORPHINE IV PRN (01:03)
[2016-02-22] MEDS: KCL 10MEQ/100ML 100 ML IV SCH ×2 (01:09→11:18)
[2016-02-22] MEDS: ZOSYN/NS 4.5GM/100ML 100 ML IV SCH ×4 (03:21→18:46)
[2016-02-22] MEDS: VANCOMYCIN VIAL 1,250 MG in NACL 0.9% 250ML 250 ML IV SCH ×4 (04:17→20:39)
[2016-02-22 07:02] LABS: BUN/Creatinine Ratio 8.57; Blood Urea Nitrogen 6 mg/dL (9-20); Calcium 7.1 mg/dL (8.4-10.2); Carbon Dioxide 26 mmol/L (22-30); Chloride 99.4 mmol/L (98-107); Glucose 163 mg/dL (75-100); Magnesium 1.9 mg/dL (1.7-2.3); Potassium 3.6 mmol/L (3.6-5.0); Sodium 136 mmol/L (137-145)
[2016-02-22 07:11] LABS: Anion Gap 14 mmol/L
[2016-02-22] MEDS: NACL 0.9% 1000 ML 1,000 ML IV SCH (07:37)
--- NOTE | 2016-02-22 09:41 | Progress Note ---
Assessment and Plan Paroxysmal atrial fibrillation currently sinus rhythm optimize electrolytes continue metoprolol 50mg Q6H digoxin level 1.3 (02/19)--> will hold for now await echo findings pt. will benefit from OAC, will hold off for now due to recent procedure Gluteal abscess Hypertension Diabetes Stable cardiac status. Continue current management. The patient has been seen in conjunction with Dr. Baldwin who agrees with the assessment and plan of care. Subjective Date of service: 02/22/16 Principal diagnosis: Bilateral gluteal cellulitis, paroxysmal atrial fibrillation Interval history: The patient is resting in bed. Pain is better today. Sinus rhythm on the monitor. Objective Last Vital Signs Temp 98.8 F 02/22/16 07:39 Pulse 89 02/22/16 07:39 Resp 14 02/22/16 07:39 BP 120/58 02/22/16 07:39 Pulse Ox 98 02/22/16 07:39 - Physical Examination General: No Apparent Distress HEENT: Positive: EOMI, Normocephaly, Mucus Membranes Moist Neck: Positive: neck supple, trachea midline Cardiac: Positive: Reg Rate and Rhythm, S1/S2 Lungs: Positive: clear to auscultation Neuro: Positive: Grossly Intact Abdomen: Positive: Soft, Active Bowel Sounds. Negative: Tender Skin: Positive: Clear. Negative: Rash Musculoskeletal: Normal Range of Motion, other (tenderness over the buttock area ) Extremities: Present: normal. Absent: edema - Labs and Meds Comprehensive Metabolic Panel 02/22/16 Range/Units 06:14 Sodium 136 L (137-145) mmol/L Potassium 3.6 (3.6-5.0) mmol/L Chloride 99.4 (98-107) mmol/L Carbon Dioxide 26 (22-30) mmol/L BUN 6 L (9-20) mg/dL Creatinine 0.7 L (0.8-1.5) mg/dL Glucose 163 H (75-100) mg/dL Calcium 7.1 L (8.4-10.2) mg/dL - Imaging and Cardiology EKG: image reviewed Echo: pending - Telemetry EKG Rhythm: Sinus Rhythm Repolarization changes or abnormalities: nonspecific abnormality, ST segment, and/or T wave
[2016-02-22] MEDS: ECOTRIN PO SCH (11:07)
[2016-02-22] MEDS: LOVENOX SUB-Q SCH ×2 (11:08→21:39)
[2016-02-22] MEDS: GLUCOPHAGE PO SCH ×2 (11:08→17:43)
[2016-02-22] MEDS: ZESTRIL PO SCH (11:08)
[2016-02-22] MEDS: NOVOLOG SUB-Q SCH ×4 (11:12→23:55)
[2016-02-22] MEDS: SENOKOT PO SCH ×2 (11:13→21:40)
[2016-02-22] MEDS: COLACE PO SCH ×2 (11:13→21:39)
--- NOTE | 2016-02-22 12:58 | Progress Note ---
Assessment and Plan Antibiotics: Vancomycin 1250 mg IV q12h 02/15 --> Zosyn 4.5 g IV Q8H (02/15 ASSESSMENT: Rajeev Hsu is a 70-year-old male with type 2 diabetes mellitus, paroxysmal atrial fibrillation and hypertension who was admitted to [facility] on 02/16/[address] Mead and his office with hyperglycemia and bilateral gluteal pain that started suddenly early on 02/07/16. CT scan shows a possible early abscess in the precoccygeal/presacral area. Problem list: 1. Severe bilateral gluteal infection with significant induration and pain, the left buttock is more indurated and equisitely tender. Operative cultures without growth so far. He did have drainage of the 2.5 x8.3 x 8.0 cm abscess that was dorsal to the sacrum. -will continue current broad spectrum antibiotics. might need to evaluate with a repeat CT scan if no improvement in induration -Status post I & D of right buttocks abscess 02/17 --cultures remain negative --Still with significant pain, induration seem to be improving. Will need to evaluate with a repeat ct scan in the next 24-48 hours to evaluate for organization of abscess 2. Lactic acidosis -Likely secondary to #1 and #2 3. History of paroxysmal atrial fibrillation -In sinus rhythm at present on exam 4. Leukocytosis -Secondary to #1 and #2, trending down PLAN: 1. continue vancomycin and Zosyn 2. will repeat CT scan tomorrow. 3. vancomycin trough to be managed by pharmacy Subjective Date of service: 02/22/16 Principal diagnosis: Bilateral gluteal cellulitis, paroxysmal atrial fibrillation Interval history: Patient seen in bed, he believes the buttock swelling is decreased Objective - Constitutional Vitals: Selected Entries 02/22/16 02/22/16 07:39 11:08 Temperature 98.8 F Pulse Rate 89 Respiratory 14 Rate Blood Pressure 122/59 Blood Pressure 80 Mean General appearance: Present: no acute distress, well-nourished - EENT Eyes: PERRL, EOM intact, no scleral icterus, no conjunctival injection ENT: hearing intact, clear oral mucosa - Neck Neck: supple, normal ROM, no enlarged thyroid, no masses or JVD - Respiratory Respiratory effort: normal Respiratory: bilateral: CTA - Breasts Breasts: deferred - Cardiovascular Rhythm: regular Heart Sounds: Present: S1 & S2 Extremities: no ischemia, No edema - Gastrointestinal General gastrointestinal: Present: soft, non-tender Rectal Exam: deferred - Genitourinary Male genitourinary: deferred - Integumentary Integumentary: clear, warm, dry, no jaundice, no rash - Additional findings Additional findings: bilateral buttock tenderness with some areas of induration - Labs CBC & Chem 7: 02/21/16 07:45 02/22/16 06:14 Labs: Microbiology 02/18/16 11:30 Buttock Wound Culture - Final 02/16/16 Unknown Peripheral/Venous Blood Culture - Final NO GROWTH AFTER 5 DAYS Laboratory Tests 02/17/16 02/20/16 02/20/16 17:19 10:34 10:34 WBC Plt Count Creatinine Estimated GFR Vancomycin Trough 8.3 Digoxin 1.3 Ketones 15.9 H 02/21/16 02/22/16 07:45 06:14 WBC 13.6 H Plt Count 329 Creatinine 0.7 L Estimated GFR > 60 Vancomycin Trough Digoxin Ketones
--- NOTE | 2016-02-22 14:40 | Progress Note ---
Assessment and Plan 1. Continue IV antibiotics, glycemic control. There is no indication for surgical intervention at this time. Subjective Date of service: 02/22/16 Narrative: The patient states that his gluteal tenderness is much improved. Objective Vital Signs - 12hr 02/22/16 02/22/16 02/22/16 04:30 05:00 07:39 Temperature 98.0 F 98.8 F Pulse Rate 99 H Pulse Rate [ 90 89 Right Radial] Respiratory 20 14 Rate Blood Pressure 136/60 Blood Pressure 122/59 120/58 [Right Arm] O2 Sat by Pulse 97 98 Oximetry 02/22/16 11:08 Temperature Pulse Rate 89 Pulse Rate [ Right Radial] Respiratory Rate Blood Pressure 122/59 Blood Pressure [Right Arm] O2 Sat by Pulse Oximetry - Abdomen soft (Overall decreased induration, minimal erythema, no obvious areas of fluctuance) - Labs 02/21/16 07:45 02/22/16 06:14 Diabetes panel 02/22/16 Range/Units 06:14 Sodium 136 L (137-145) mmol/L Potassium 3.6 (3.6-5.0) mmol/L Chloride 99.4 (98-107) mmol/L Carbon Dioxide 26 (22-30) mmol/L BUN 6 L (9-20) mg/dL Creatinine 0.7 L (0.8-1.5) mg/dL Glucose 163 H (75-100) mg/dL Calcium 7.1 L (8.4-10.2) mg/dL Calcium panel 02/22/16 Range/Units 06:14 Calcium 7.1 L (8.4-10.2) mg/dL Pituitary panel 02/22/16 Range/Units 06:14 Sodium 136 L (137-145) mmol/L Potassium 3.6 (3.6-5.0) mmol/L Chloride 99.4 (98-107) mmol/L Carbon Dioxide 26 (22-30) mmol/L BUN 6 L (9-20) mg/dL Creatinine 0.7 L (0.8-1.5) mg/dL Glucose 163 H (75-100) mg/dL Calcium 7.1 L (8.4-10.2) mg/dL Adrenal panel 02/22/16 Range/Units 06:14 Sodium 136 L (137-145) mmol/L Potassium 3.6 (3.6-5.0) mmol/L Chloride 99.4 (98-107) mmol/L Carbon Dioxide 26 (22-30) mmol/L BUN 6 L (9-20) mg/dL Creatinine 0.7 L (0.8-1.5) mg/dL Glucose 163 H (75-100) mg/dL Calcium 7.1 L (8.4-10.2) mg/dL
--- NOTE | 2016-02-22 16:49 | Progress Note ---
Assessment and Plan 1. Diabetes mellitus: Improved. Further optimize glycemic control. Continue with Lantus 30 units every 12. Continue with sliding scale insulin and 2000 ADA 2. Terrell gluteal abcess: Blood Cx. yielded no growth so far. Continue with Zosyn and Vanc 3. SIRS: continue with iv antibiotic and tend lactic acid level 4. Hypophasphatemia: Supplement 5. Paroxysmal Afib. No NSR. Continue with Metoprolol per cardiology and still hold digoxin continue anticoagulation with Lovenox. 6. Hypokalemia: Supplement further. Normal Magnesium level - Patient Problems (1) Gluteal abscess Diagnosis Date: 02/17/16 Current Visit: Yes Status: Acute (2) Diabetes mellitus Diagnosis Date: 02/17/16 Current Visit: Yes Status: Acute Qualifiers: Diabetes mellitus type: type 2 Diabetes mellitus complication status: with skin complications Diabetes mellitus terminal press operator insulin use: without terminal press operator use (3) H/O atrial fibrillation without current medication Diagnosis Date: 02/17/16 Current Visit: Yes Status: Acute (4) SIRS (systemic inflammatory response syndrome) Diagnosis Date: 02/17/16 Current Visit: Yes Status: Acute (5) Hyponatremia Diagnosis Date: 02/17/16 Current Visit: Yes Status: Acute Subjective Date of service: 02/22/16 Principal diagnosis: Bilateral gluteal cellulitis, paroxysmal atrial fibrillation Interval history: feeling slightly better. Gluteal induration improving as well at local tenderness. No fever. Palpitations improving. Objective - Constitutional Vitals: Vital Signs - 12hr 02/22/16 02/22/16 02/22/16 05:00 07:39 11:08 Temperature 98.0 F 98.8 F Pulse Rate 89 Pulse Rate [ 90 89 Right Radial] Respiratory 20 14 Rate Blood Pressure 122/59 Blood Pressure 122/59 120/58 [Right Arm] O2 Sat by Pulse 97 98 Oximetry General appearance: Present: no acute distress - EENT Eyes: PERRL - Neck Neck: supple - Respiratory Respiratory: bilateral: CTA - Cardiovascular Rhythm: regular Extremities: no ischemia - Gastrointestinal General gastrointestinal: Present: soft, non-tender, non-distended - Genitourinary Male genitourinary: normal - Integumentary Integumentary: clear, warm, dry - Musculoskeletal Musculoskeletal: strength equal bilaterally - Neurologic Neurologic: CNII-XII intact - Psychiatric Psychiatric: appropriate mood/affect - Labs CBC & Chem 7: 12/28/16 07:45 02/22/16 06:14 Labs: Abnormal lab results 02/21/16 02/22/16 02/22/16 Range/Units 16:15 06:01 06:14 Sodium 136 L (137-145) mmol/L BUN 6 L (9-20) mg/dL Creatinine 0.7 L (0.8-1.5) mg/dL Glucose 163 H (75-100) mg/dL POC Glucose 153 H 167 H (70-105) Calcium 7.1 L (8.4-10.2) mg/dL
[2016-02-22] MEDS: HYDROMET PO PRN (18:32)
[2016-02-22] MEDS: RESTORIL PO SCH (21:40)
[2016-02-22] MEDS: TYLENOL PO PRN (23:54)
[2016-02-22] MEDS: TESSALON PERLES PO PRN (23:54)
[2016-02-23] MEDS: NACL 0.9% 1000 ML 1,000 ML IV SCH (02:40)
[2016-02-23] MEDS: ZOSYN/NS 4.5GM/100ML 100 ML IV SCH ×3 (02:43→19:14)
[2016-02-23] MEDS: VANCOMYCIN VIAL 1,250 MG in NACL 0.9% 250ML 250 ML IV SCH ×3 (03:26→20:15)
[2016-02-23] MEDS: LOPRESSOR PO SCH ×4 (03:31→22:07)
[2016-02-23] MEDS: NOVOLOG SUB-Q SCH ×3 (09:16→18:40)
[2016-02-23] MEDS: LEVEMIR SUB-Q SCH ×2 (09:18→22:09)
[2016-02-23] MEDS: GLUCOPHAGE PO SCH ×2 (09:19→18:29)
[2016-02-23] MEDS: LOVENOX SUB-Q SCH ×2 (09:19→22:07)
[2016-02-23] MEDS: ECOTRIN PO SCH (09:20)
[2016-02-23] MEDS: COLACE PO SCH ×2 (09:35→22:16)
[2016-02-23] MEDS: SENOKOT PO SCH ×2 (09:37→22:08)
[2016-02-23] MEDS: ZESTRIL PO SCH (09:43)
--- NOTE | 2016-02-23 09:54 | Progress Note ---
Assessment and Plan Paroxysmal atrial fibrillation currently sinus rhythm optimize electrolytes digoxin discontinued continue metoprolol 50mg Q6H await echo findings pt. will benefit from OAC, will hold off for now due to recent procedure, continue lovenox Gluteal abscess Hypertension Diabetes Stable cardiac status. Continue current management. The patient has been seen in conjunction with Dr. Baldwin who agrees with the assessment and plan of care. Subjective Date of service: 02/23/16 Principal diagnosis: Bilateral gluteal cellulitis, paroxysmal atrial fibrillation Interval history: The patient is resting in bed. No chest pain or shortness of breath. Sinus rhythm on the monitor. Objective Last Vital Signs Temp 98.2 F 02/23/16 07:10 Pulse 77 02/23/16 10:06 Resp 16 02/23/16 07:10 BP 117/58 02/23/16 10:06 Pulse Ox 98 02/23/16 07:10 - Physical Examination General: No Apparent Distress HEENT: Positive: EOMI, Normocephaly, Mucus Membranes Moist Neck: Positive: neck supple, trachea midline Cardiac: Positive: Reg Rate and Rhythm, S1/S2 Lungs: Positive: clear to auscultation Neuro: Positive: Grossly Intact Abdomen: Positive: Soft, Active Bowel Sounds. Negative: Tender Skin: Positive: Clear. Negative: Rash Musculoskeletal: Normal Range of Motion, other (tenderness over the buttock area ) Extremities: Present: normal. Absent: edema - Imaging and Cardiology EKG: image reviewed Echo: pending - Telemetry EKG Rhythm: Sinus Rhythm Repolarization changes or abnormalities: nonspecific abnormality, ST segment, and/or T wave
[2016-02-23] MEDS: MORPHINE IV PRN ×2 (10:07→18:42)
--- NOTE | 2016-02-23 12:02 | Progress Note ---
Assessment and Plan Current antibiotics: Vancomycin 1250 mg IV q12h 02/15 --> Zosyn 4.5 g IV q8h 02/17 --> Previous antibiotics: Zosyn 4.5 g IV X 1 02/15 ASSESSMENT: Rajeev Hsu is a 70-year-old male with type 2 diabetes mellitus, paroxysmal atrial fibrillation and hypertension who was admitted to [facility] on 02/16/[address] Mead and his office with hyperglycemia and bilateral gluteal pain that started suddenly early on 02/07/16. CT scan shows a possible early abscess in the precoccygeal/presacral area. Problem list: 1. Severe bilateral gluteal pain -Associated induration and increased warmth and marked tenderness to palpation -Rule out gluteal cellulitis although bilaterality is unusual -Rule out early necrotizing fasciitis -Rule out other cause loading referred pain from #2 -Status post I & D of right buttocks abscess 02/17 (details unclear) with culture negative 2. Type 2 diabetes mellitus -Poor glycemic control -Hemoglobin A1c of > [address] Mead's note -DKA 3. Lactic acidosis -Likely secondary to #1 and #2 5. History of paroxysmal atrial fibrillation -In sinus rhythm at present on exam 6. Leukocytosis -Secondary to #1 and #2 PLAN: 1. Continue vancomycin and Zosyn 3. Will repeat CT scan to look for undrained abscess 4. Glycemic control as per Dr. Mead 5. Follow clinical exam closely for evidence of necrotizing fasciitis Xavier Ruby MD [facility] Office: [phone] Subjective Date of service: 02/23/16 Principal diagnosis: Bilateral gluteal cellulitis, paroxysmal atrial fibrillation Interval history: Still with significant gluteal pain but "better." Continues to tolerate antibiotics well to date. ROS: No subjective fever or chills. No nausea, vomiting or diarrhea. No shortness of breath, cough or pleuritic chest pain Objective - Exam Narrative Exam: GENERAL: Well-developed, well-nourished appearing male who is alert and in no acute distress but still lying on his side avoiding pressure to the gluteal areas. HEAD: Normocephalic. No lesions seen. EYES: Pupils are equal reactive to light and accommodation. There is no scleral icterus. Optic fundi are not examined. EARS: Tympanic membranes are normal. THROAT: Oropharynx is normal with no evidence of oral candidiasis or pharyngitis. Poor dentition but no obvious dental infection seen. NECK: Supple. No enlargement of the thyroid gland. No significant cervical lymphadenopathy. No jugular venous distention at 30. LUNGS: Clear with no adventitious sounds. HEART: Regular rate. S1 and S2 are normal. There are no murmurs, gallops, clicks or rubs heard. ABDOMEN: Soft and nontender. Liver and spleen are not palpably enlarged or tender. No palpable masses. Bowel sounds are normoactive. EXTREMITIES: No rash, peripheral lymphadenopathy, clubbing or edema. Bilateral induration and tenderness over both gluteal areas but significantly improved as compared to when I last saw it. Left gluteal area more indurated as compared to right. No definite fluctuance nor crepitus. There is moderate increased warmth but no erythema seen. : Normal external male. No penile lesions or urethral discharge. No testicular masses or tenderness. NEUROLOGIC: No focal findings. - Constitutional Vitals: Vital Signs Temp Pulse Resp BP Pulse Ox 98.2 F 77 16 117/58 98 02/23/16 07:10 02/23/16 10:06 02/23/16 07:10 02/23/16 10:06 02/23/16 07:10 Temperature -Last 24 Hours Temperature 98.2 F Temperature 98.3 F Temperature 98.0 F - Labs CBC & Chem 7: 02/21/16 07:45 02/22/16 06:14 Labs: Abnormal lab results Microbiology 02/16/16 Unknown Peripheral/Venous Blood Culture - Final NO GROWTH AFTER 5 DAYS 02/16/16 Unknown Peripheral/Venous Blood Culture - Final NO GROWTH AFTER 5 DAYS 02/18/16 11:30 Buttock Wound Culture - No growth. Gram stain with no PMNs and no organisms seen
--- NOTE | 2016-02-23 16:15 | Progress Note ---
Assessment and Plan - Patient Problems (1) Cellulitis of gluteal region Current Visit: Yes Status: Acute Plan to address problem: I recommend continued antibiotics as you are doing We will await follow-up CT scanas ordered by ID Subjective Date of service: 02/23/16 Patient Reports: Positive: feels better, pain is less, other (denies drainage) Objective Vital Signs - 12hr 02/23/16 02/23/16 02/23/16 07:10 09:43 10:06 Temperature 98.2 F Pulse Rate 77 77 Pulse Rate [ 77 Right Radial] Respiratory 16 Rate Blood Pressure 117/58 117/58 Blood Pressure 117/58 [Right Arm] O2 Sat by Pulse 98 Oximetry 02/23/16 14:42 Temperature 98.2 F Pulse Rate Pulse Rate [ 82 Right Radial] Respiratory 14 Rate Blood Pressure Blood Pressure 114/55 [Right Arm] O2 Sat by Pulse 99 Oximetry - General physical appearance well developed, no distress - Additional Exam Induration noted in bilateral buttocks; no evidence of abscess; no evidence of drainage noted - Labs 02/21/16 07:45 02/22/16 06:14
--- NOTE | 2016-02-23 19:19 | Cat Scan Report ---
FINAL REPORT PROCEDURE: CT pelvis without and with contrast. TECHNIQUE: Computerized axial tomography of the pelvis was performed before and after the IV injection of iodinated nonionic contrast. HISTORY: Gluteal cellulitis and abscess. COMPARISON: CT abdomen and pelvis 02/16/2016. TECHNICAL QUALITY: Satisfactory. FINDINGS: Again noted are a fluid and gas collection in the midline located dorsal to the sacrum and coccyx. This is consistent with infection with a gas-forming organism. The extent of the gas has increased and has now spread further laterally into both gluteal destinee muscles. The overlying skin remains thickened consistent with cellulitis. Referral to a general surgeon is strongly recommended. The regional skeleton appears intact. There are no definite radiographic signs of osteomyelitis. There is a new small amount of ascites as far as visualized. There are at least 2 cysts in the left kidney. IMPRESSION: Gluteal subcutaneous and muscular infection with gas-forming organism. Extent of infection has worsened since the previous study. Referral to a general surgeon is recommended. New ascites.
--- NOTE | 2016-02-23 20:49 | Progress Note ---
Assessment and Plan 1. Terrell gluteal abcess: limited I&D. CT showed worsening collection. Will discuss with surgeon deeper I and D with packing. Blood Cx. yielded no growth so far. Continue with Zosyn and Vanc 2. Diabetes mellitus: Improved. Further optimize glycemic control. Continue with Lantus 30 units every 12. Continue with sliding scale insulin and 2000 ADA 3. Paroxysmal Afib. No NSR. Continue with Metoprolol per cardiology and still hold digoxin continue anticoagulation with Lovenox. 6. Hypokalemia: will rechek electrolytes - Patient Problems (1) Gluteal abscess Diagnosis Date: 02/17/16 Current Visit: Yes Status: Acute (2) Diabetes mellitus Diagnosis Date: 02/17/16 Current Visit: Yes Status: Acute Qualifiers: Diabetes mellitus type: type 2 Diabetes mellitus complication status: with skin complications Diabetes mellitus retirement insulin use: without watermelon inspector use (3) H/O atrial fibrillation without current medication Diagnosis Date: 02/17/16 Current Visit: Yes Status: Acute (4) SIRS (systemic inflammatory response syndrome) Diagnosis Date: 02/17/16 Current Visit: Yes Status: Acute (5) Hyponatremia Diagnosis Date: 02/17/16 Current Visit: Yes Status: Acute Subjective Date of service: 02/23/16 Principal diagnosis: Bilateral gluteal cellulitis, paroxysmal atrial fibrillation Interval history: feeling slightly better. Gluteal induration improving as well at local tenderness. No fever. no palpitation Objective - Constitutional Vitals: Vital Signs - 12hr 02/23/16 02/23/16 02/23/16 09:43 10:06 14:42 Temperature 98.2 F Pulse Rate 77 77 Pulse Rate [ 82 Right Radial] Respiratory 14 Rate Blood Pressure 117/58 117/58 Blood Pressure 114/55 [Right Arm] O2 Sat by Pulse 99 Oximetry 02/23/16 02/23/16 16:18 18:40 Temperature Pulse Rate 88 Pulse Rate [ 60 Right Radial] Respiratory 12 Rate Blood Pressure 141/67 Blood Pressure [Right Arm] O2 Sat by Pulse Oximetry General appearance: Present: no acute distress - EENT Eyes: PERRL - Neck Neck: supple - Respiratory Respiratory: bilateral: CTA - Cardiovascular Rhythm: irregularly irregular Heart Sounds: Present: S1 & S2 Extremities: no ischemia - Gastrointestinal General gastrointestinal: Present: soft, non-tender, non-distended - Integumentary Integumentary: warm (terrell gluteal area) - Musculoskeletal Musculoskeletal: strength equal bilaterally - Neurologic Neurologic: CNII-XII intact, moves all extremities - Psychiatric Psychiatric: appropriate mood/affect - Labs CBC & Chem 7: 02/21/16 07:45 02/22/16 06:14 Labs: Abnormal lab results 02/22/16 02/23/16 02/23/16 Range/Units 23:42 05:48 11:31 POC Glucose 117 H 67 L 152 H (70-105) 02/23/16 Range/Units 18:03 POC Glucose 134 H (70-105)
[2016-02-23] MEDS: RESTORIL PO SCH (22:08)
[2016-02-24] MEDS: NOVOLOG SUB-Q SCH ×4 (00:13→18:49)
[2016-02-24] MEDS: NACL 0.9% 1000 ML 1,000 ML IV SCH (04:08)
[2016-02-24] MEDS: ZOSYN/NS 4.5GM/100ML 100 ML IV SCH ×3 (04:11→22:13)
[2016-02-24] MEDS: VANCOMYCIN VIAL 1,250 MG in NACL 0.9% 250ML 250 ML IV SCH ×3 (04:12→22:11)
[2016-02-24] MEDS: LOPRESSOR PO SCH ×2 (04:43→11:44)
[2016-02-24 08:27] LABS: Basophils % (Auto) 0.2 % (0.0-1.8); Eosinophils % (Auto) 1.2 % (0.0-4.3); Hematocrit 34.9 % (35.5-45.6); Hemoglobin 11.5 gm/dl (11.8-15.2); Mean Corpuscular HGB Conc 33 % (32-34); Mean Corpuscular Hemoglobin 30 pg (28-32); Mean Corpuscular Volume 90 fl (84-94); Platelet Count 374 K/mm3 (140-440); Red Blood Count 3.86 M/mm3 (3.65-5.03); Red Cell Distribution Width 13.6 % (13.2-15.2); White Blood Count 11.4 K/mm3 (4.5-11.0)
[2016-02-24] MEDS: GLUCOPHAGE PO SCH ×2 (09:02→18:49)
[2016-02-24 09:49] LABS: Alanine Aminotransferase 38 units/L (7-56); Albumin 1.9 g/dL (3.9-5); Albumin/Globulin Ratio 0.6 %; Alkaline Phosphatase 91 units/L (35-129); Anion Gap 15 mmol/L; Bilirubin,Total 0.2 mg/dL (0.1-1.2); Blood Urea Nitrogen 8 mg/dL (9-20); Calcium 7.6 mg/dL (8.4-10.2); Carbon Dioxide 26 mmol/L (22-30); Glucose 87 mg/dL (75-100); Potassium 3.8 mmol/L (3.6-5.0); Sodium 138 mmol/L (137-145); Total Protein 5.1 g/dL (6.3-8.2)
[2016-02-24] MEDS: ECOTRIN PO SCH (11:14)
[2016-02-24] MEDS: ZESTRIL PO SCH (11:15)
[2016-02-24] MEDS: LEVEMIR SUB-Q SCH ×2 (11:19→22:21)
[2016-02-24] MEDS: COLACE PO SCH ×2 (11:23→22:14)
[2016-02-24] MEDS: LOVENOX SUB-Q SCH ×2 (11:24→22:15)
[2016-02-24] MEDS: SENOKOT PO SCH ×2 (11:25→22:18)
--- NOTE | 2016-02-24 11:36 | Progress Note ---
Assessment and Plan Paroxysmal atrial fibrillation currently sinus rhythm optimize electrolytes digoxin discontinued continue metoprolol 50mg Q6H await echo findings pt. will benefit from OAC, will hold off for now due to recent procedure, continue lovenox Gluteal abscess Hypertension Diabetes Subjective Date of service: 02/24/16 Principal diagnosis: Bilateral gluteal cellulitis, paroxysmal atrial fibrillation Interval history: Patient lying on the side pain low better controlled no palpitations noted Objective Vital Signs Temp Pulse Pulse Resp BP BP Pulse Ox 02/24/16 11:15 92 H 142/65 02/24/16 08:30 85 02/24/16 08:10 97.9 F 73 20 120/60 95 02/24/16 04:43 100 H 130/60 02/23/16 22:07 100 H 140/60 02/23/16 22:00 100 H 20 02/23/16 18:40 88 141/67 02/23/16 16:18 60 12 02/23/16 14:42 98.2 F 82 14 114/55 99 - Physical Examination General: No Apparent Distress HEENT: Positive: EOMI, Normocephaly, Mucus Membranes Moist Neck: Positive: neck supple, trachea midline Cardiac: Positive: Reg Rate and Rhythm Lungs: Positive: clear to auscultation Neuro: Positive: Grossly Intact Abdomen: Positive: Soft, Active Bowel Sounds. Negative: Tender Skin: Positive: Clear. Negative: Rash Musculoskeletal: Normal Range of Motion, other (tenderness over the buttock area ) Extremities: Present: normal. Absent: edema - Labs and Meds Cardiac Enzymes 02/24/16 Range/Units 07:50 AST 49 H (5-40) units/L CBC 02/24/16 Range/Units 07:50 WBC 11.4 H (4.5-11.0) K/mm3 RBC 3.86 (3.65-5.03) M/mm3 Hgb 11.5 L (11.8-15.2) gm/dl Hct 34.9 L (35.5-45.6) % Plt Count 374 (140-440) K/mm3 Lymph # 1.1 L (1.2-5.4) K/mm3 [place] # 1.1 H (0.0-0.8) K/mm3 Eos # 0.1 (0.0-0.4) K/mm3 Baso # 0.0 (0.0-0.1) K/mm3 Comprehensive Metabolic Panel 02/24/16 Range/Units 07:50 Sodium 138 (137-145) mmol/L Potassium 3.8 (3.6-5.0) mmol/L Chloride 101.0 (98-107) mmol/L Carbon Dioxide 26 (22-30) mmol/L BUN 8 L (9-20) mg/dL Creatinine 0.8 (0.8-1.5) mg/dL Glucose 87 (75-100) mg/dL Calcium 7.6 L (8.4-10.2) mg/dL AST 49 H (5-40) units/L ALT 38 (7-56) units/L Alkaline Phosphatase 91 (35-129) units/L Total Protein 5.1 L (6.3-8.2) g/dL Albumin 1.9 L (3.9-5) g/dL - Imaging and Cardiology EKG: image reviewed Echo: pending - Telemetry EKG Rhythm: Sinus Rhythm (no H fibrillation or for 48 hours) Repolarization changes or abnormalities: nonspecific abnormality, ST segment, and/or T wave
[2016-02-24] MEDS: MORPHINE IV PRN (11:46)
--- NOTE | 2016-02-24 12:52 | Progress Note ---
Assessment and Plan - Patient Problems (1) Cellulitis of gluteal region Current Visit: Yes Status: Acute (2) Gluteal abscess Diagnosis Date: 02/17/16 Current Visit: Yes Status: Acute (3) H/O atrial fibrillation without current medication Diagnosis Date: 02/17/16 Current Visit: Yes Status: Acute Subjective Date of service: 02/24/16 Principal diagnosis: Bilateral gluteal cellulitis, paroxysmal atrial fibrillation Interval history: Covering Dr Mead Patient seen and examined , chart reviewed .Patient denied any new complaints .No fever or chills , vitals stable .Patient stated that pain control is adequate Objective - Constitutional Vitals: Vital Signs - 12hr 02/24/16 02/24/16 02/24/16 04:43 08:10 08:30 Temperature 97.9 F Pulse Rate 100 H Pulse Rate [ 73 85 Right Radial] Respiratory 20 Rate Blood Pressure 130/60 Blood Pressure 120/60 [Right Arm] O2 Sat by Pulse 95 Oximetry 02/24/16 11:15 Temperature Pulse Rate 92 H Pulse Rate [ Right Radial] Respiratory Rate Blood Pressure 142/65 Blood Pressure [Right Arm] O2 Sat by Pulse Oximetry General appearance: Present: no acute distress - EENT Eyes: PERRL, EOM intact - Respiratory Respiratory effort: normal Respiratory: bilateral: CTA - Cardiovascular Rhythm: regular Extremity abnormal: pulses diminished - Gastrointestinal General gastrointestinal: Present: non-tender Rectal Exam: deferred - Genitourinary Male genitourinary: deferred - Integumentary Integumentary: warm - Musculoskeletal Musculoskeletal: strength equal bilaterally, right sided weakness - Neurologic Neurologic: CNII-XII intact, moves all extremities - Psychiatric Psychiatric: appropriate mood/affect - Labs CBC & Chem 7: 02/24/16 07:50 02/24/16 07:50 Labs: Abnormal lab results 02/23/16 02/23/16 02/23/16 Range/Units 11:31 18:03 21:23 WBC (4.5-11.0) K/mm3 Hgb (11.8-15.2) gm/dl Hct (35.5-45.6) % Lymph % (Auto) (13.4-35.0) % [place] % (Auto) (0.0-7.3) % Lymph # (1.2-5.4) K/mm3 [place] # (0.0-0.8) K/mm3 Seg Neutrophils % (40.0-70.0) % Seg Neutrophils # (1.8-7.7) K/mm3 BUN (9-20) mg/dL POC Glucose 152 H 134 H 269 H (70-105) Calcium (8.4-10.2) mg/dL AST (5-40) units/L Total Protein (6.3-8.2) g/dL Albumin (3.9-5) g/dL 02/24/16 02/24/16 02/24/16 Range/Units 05:28 07:50 07:50 WBC 11.4 H (4.5-11.0) K/mm3 Hgb 11.5 L (11.8-15.2) gm/dl Hct 34.9 L (35.5-45.6) % Lymph % (Auto) 9.3 L (13.4-35.0) % [place] % (Auto) 9.4 H (0.0-7.3) % Lymph # 1.1 L (1.2-5.4) K/mm3 [place] # 1.1 H (0.0-0.8) K/mm3 Seg Neutrophils % 79.9 H (40.0-70.0) % Seg Neutrophils # 9.1 H (1.8-7.7) K/mm3 BUN 8 L (9-20) mg/dL POC Glucose 131 H (70-105) Calcium 7.6 L (8.4-10.2) mg/dL AST 49 H (5-40) units/L Total Protein 5.1 L (6.3-8.2) g/dL Albumin 1.9 L (3.9-5) g/dL
--- NOTE | 2016-02-24 13:02 | Progress Note ---
Assessment and Plan With his symptoms improving, WBC almost back to normal, and no fever I am not sure intevention based purely on the CT Scan findings would be helpful at this stage. If he develops worsening symptoms, WBC or fever then intervention would have benefit. Will continue to follow. Subjective Date of service: 02/24/16 Patient Reports: Positive: other (Patient is not in room or accessible; reports indicate he is feeling better) Objective Vital Signs - 12hr 02/24/16 02/24/16 02/24/16 04:43 08:10 08:30 Temperature 97.9 F Pulse Rate 100 H Pulse Rate [ 73 85 Right Radial] Respiratory 20 Rate Blood Pressure 130/60 Blood Pressure 120/60 [Right Arm] O2 Sat by Pulse 95 Oximetry 02/24/16 11:15 Temperature Pulse Rate 92 H Pulse Rate [ Right Radial] Respiratory Rate Blood Pressure 142/65 Blood Pressure [Right Arm] O2 Sat by Pulse Oximetry - Labs 02/24/16 07:50 02/24/16 07:50 Diabetes panel 02/24/16 Range/Units 07:50 Sodium 138 (137-145) mmol/L Potassium 3.8 (3.6-5.0) mmol/L Chloride 101.0 (98-107) mmol/L Carbon Dioxide 26 (22-30) mmol/L BUN 8 L (9-20) mg/dL Creatinine 0.8 (0.8-1.5) mg/dL Glucose 87 (75-100) mg/dL Calcium 7.6 L (8.4-10.2) mg/dL AST 49 H (5-40) units/L ALT 38 (7-56) units/L Alkaline Phosphatase 91 (35-129) units/L Total Protein 5.1 L (6.3-8.2) g/dL Albumin 1.9 L (3.9-5) g/dL Calcium panel 02/24/16 Range/Units 07:50 Calcium 7.6 L (8.4-10.2) mg/dL Albumin 1.9 L (3.9-5) g/dL Pituitary panel 02/24/16 Range/Units 07:50 Sodium 138 (137-145) mmol/L Potassium 3.8 (3.6-5.0) mmol/L Chloride 101.0 (98-107) mmol/L Carbon Dioxide 26 (22-30) mmol/L BUN 8 L (9-20) mg/dL Creatinine 0.8 (0.8-1.5) mg/dL Glucose 87 (75-100) mg/dL Calcium 7.6 L (8.4-10.2) mg/dL Adrenal panel 02/24/16 Range/Units 07:50 Sodium 138 (137-145) mmol/L Potassium 3.8 (3.6-5.0) mmol/L Chloride 101.0 (98-107) mmol/L Carbon Dioxide 26 (22-30) mmol/L BUN 8 L (9-20) mg/dL Creatinine 0.8 (0.8-1.5) mg/dL Glucose 87 (75-100) mg/dL Calcium 7.6 L (8.4-10.2) mg/dL Total Bilirubin 0.2 (0.1-1.2) mg/dL AST 49 H (5-40) units/L ALT 38 (7-56) units/L Alkaline Phosphatase 91 (35-129) units/L Total Protein 5.1 L (6.3-8.2) g/dL Albumin 1.9 L (3.9-5) g/dL - Imaging CT scan - pelvis: report reviewed, image reviewed
--- NOTE | 2016-02-24 14:31 | Progress Note ---
Assessment and Plan Current antibiotics: Vancomycin 1250 mg IV q12h 02/15 --> Zosyn 4.5 g IV q8h 02/17 --> Previous antibiotics: Zosyn 4.5 g IV X 1 02/15 ASSESSMENT: Rajeev Hsu is a 70-year-old male with type 2 diabetes mellitus, paroxysmal atrial fibrillation and hypertension who was admitted to [facility] on 02/16/[address] Mead and his office with hyperglycemia and bilateral gluteal pain that started suddenly early on 02/07/16. CT scan shows a possible early abscess in the precoccygeal/presacral area. Problem list: 1. Severe bilateral gluteal pain -Associated induration and increased warmth and marked tenderness to palpation -Rule out gluteal cellulitis although bilaterality is unusual -Rule out early necrotizing fasciitis -Rule out other cause loading referred pain from #2 -Status post I & D of right buttocks abscess 02/17 (details unclear) with culture negative 2. Type 2 diabetes mellitus -Poor glycemic control -Hemoglobin A1c of > [address] Mead's note -DKA 3. Lactic acidosis -Likely secondary to #1 and #2 5. History of paroxysmal atrial fibrillation -In sinus rhythm at present on exam 6. Leukocytosis -Secondary to #1 and #2 PLAN: 1. Continue vancomycin and Zosyn 2. Glycemic control as per Dr. Mead 3. Follow clinical exam closely for evidence of necrotizing fasciitis 4. Dr. Cortez note reviewed. Subjective Date of service: 02/24/16 Principal diagnosis: Bilateral gluteal cellulitis, paroxysmal atrial fibrillation Interval history: Patient states that bilateral gluteal sites are a third of the size they were. Objective - Exam Narrative Exam: No distress. HEENT: Pupils are equal reactive to light and accommodation. Conjunctiva clear. Oropharynx is normal with no evidence of oral candidiasis or pharyngitis. NECK: Supple. No enlargement of the thyroid gland. No significant cervical lymphadenopathy. No jugular venous distention at 30. LUNGS: Clear with no adventitious sounds. HEART: Regular rate. S1 and S2 are normal. There are no murmurs, gallops, clicks or rubs heard. ABDOMEN: Soft and nontender. Liver and spleen are not palpably enlarged or tender. No palpable masses. Bowel sounds are normoactive. : Marked induration and tenderness over bilateral gluteal areas. Mild erythema. No fluctuant sites. EXTREMITIES: No rash, peripheral lymphadenopathy, clubbing or edema. SKIN: No other rash, ulcers or wounds. NEUROLOGIC: No focal findings. - Constitutional Vitals: Vital Signs Temp Pulse Resp BP Pulse Ox 97.9 F 92 H 20 142/65 95 02/24/16 08:10 02/24/16 11:15 02/24/16 08:10 02/24/16 11:15 02/24/16 08:10 Temperature -Last 24 Hours Temperature 97.9 F Temperature 98.2 F - Labs CBC & Chem 7: 02/24/16 07:50 02/24/16 07:50 Labs: Abnormal lab results 02/23/16 02/23/16 02/23/16 Range/Units 11:31 18:03 21:23 WBC (4.5-11.0) K/mm3 Hgb (11.8-15.2) gm/dl Hct (35.5-45.6) % Lymph % (Auto) (13.4-35.0) % [place] % (Auto) (0.0-7.3) % Lymph # (1.2-5.4) K/mm3 [place] # (0.0-0.8) K/mm3 Seg Neutrophils % (40.0-70.0) % Seg Neutrophils # (1.8-7.7) K/mm3 BUN (9-20) mg/dL POC Glucose 152 H 134 H 269 H (70-105) Calcium (8.4-10.2) mg/dL AST (5-40) units/L Total Protein (6.3-8.2) g/dL Albumin (3.9-5) g/dL 02/24/16 02/24/16 02/24/16 Range/Units 05:28 07:50 07:50 WBC 11.4 H (4.5-11.0) K/mm3 Hgb 11.5 L (11.8-15.2) gm/dl Hct 34.9 L (35.5-45.6) % Lymph % (Auto) 9.3 L (13.4-35.0) % [place] % (Auto) 9.4 H (0.0-7.3) % Lymph # 1.1 L (1.2-5.4) K/mm3 [place] # 1.1 H (0.0-0.8) K/mm3 Seg Neutrophils % 79.9 H (40.0-70.0) % Seg Neutrophils # 9.1 H (1.8-7.7) K/mm3 BUN 8 L (9-20) mg/dL POC Glucose 131 H (70-105) Calcium 7.6 L (8.4-10.2) mg/dL AST 49 H (5-40) units/L Total Protein 5.1 L (6.3-8.2) g/dL Albumin 1.9 L (3.9-5) g/dL
[2016-02-24] MEDS: RESTORIL PO SCH (22:15)
[2016-02-25] MEDS: NOVOLOG SUB-Q SCH ×4 (03:34→18:04)
[2016-02-25] MEDS: LOPRESSOR PO SCH ×6 (04:10→23:57)
[2016-02-25] MEDS: VANCOMYCIN VIAL 1,250 MG in NACL 0.9% 250ML 250 ML IV SCH ×3 (04:41→20:08)
[2016-02-25] MEDS: ZOSYN/NS 4.5GM/100ML 100 ML IV SCH ×3 (07:14→21:46)
[2016-02-25 08:09] LABS: Basophils % (Auto) 0.4 % (0.0-1.8); Eosinophils % (Auto) 1.3 % (0.0-4.3); Hemoglobin 11.3 gm/dl (11.8-15.2); Mean Corpuscular HGB Conc 33 % (32-34); Mean Corpuscular Hemoglobin 30 pg (28-32); Mean Corpuscular Volume 92 fl (84-94); Platelet Count 413 K/mm3 (140-440); Red Blood Count 3.71 M/mm3 (3.65-5.03); Red Cell Distribution Width 13.8 % (13.2-15.2); White Blood Count 12.8 K/mm3 (4.5-11.0)
[2016-02-25 08:32] LABS: Alanine Aminotransferase 43 units/L (7-56); Albumin 1.9 g/dL (3.9-5); Albumin/Globulin Ratio 0.5 %; Alkaline Phosphatase 105 units/L (35-129); BUN/Creatinine Ratio 11.42; Bilirubin,Total 0.2 mg/dL (0.1-1.2); Blood Urea Nitrogen 8 mg/dL (9-20); Calcium 7.8 mg/dL (8.4-10.2); Carbon Dioxide 28 mmol/L (22-30); Chloride 105.5 mmol/L (98-107); Glucose 69 mg/dL (75-100); Potassium 3.8 mmol/L (3.6-5.0); Sodium 145 mmol/L (137-145); Total Protein 5.4 g/dL (6.3-8.2)
[2016-02-25 08:40] LABS: Anion Gap 15 mmol/L
[2016-02-25] MEDS: GLUCOPHAGE PO SCH ×2 (08:54→17:50)
--- NOTE | 2016-02-25 10:02 | Echocardiography Report ---
Transthoracic Echocardiogram BP: 142/65 HR: 98 Conclusions *Global left ventricular systolic function is normal. *Mild concentric left ventricular hypertrophy is observed. *The estimated ejection fraction is 50-55%. *The left atrial chamber size is normal. *The aortic valve is trileaflet. The leaflets are thin with normal excursion. There is no aortic stenosis or regurgitation present. *There is mild mitral regurgitation. *There is mild tricuspid regurgitation. *The right ventricular systolic pressure is calculated at 23 mmHg. *No pulmonary hypertension is noted. *There is trace pulmonic regurgitation. Findings Procedure Info: The study quality is fair. The study is technically limited due to patient body habitus. Left Ventricle: The left ventricular chamber size is normal. Mild concentric left ventricular hypertrophy is observed. Global left ventricular systolic function is normal. The estimated ejection fraction is 50-55%. Left Atrium: The left atrial chamber size is normal. Right Ventricle: The right ventricular cavity size is normal. The right ventricular global systolic function is mildly reduced. No pacemaker wire is visualized in the right ventricle. Right Atrium: The right atrial cavity size is normal. No pacemaker wire is visualized in the right atrium. A patent foramen ovale is not demonstrated by color Doppler. Aortic Valve: The aortic valve is trileaflet. The leaflets are thin with normal excursion. There is no aortic stenosis or regurgitation present. The aortic valve is trileaflet. There is no evidence of aortic valve thickening. There is no evidence of aortic regurgitation. There is no evidence of aortic stenosis. The peak instantaneous gradient of the aortic valve is 8 mmHg. The aortic valve area, by peak velocities, is calculated at 3.6 cm2. Mitral Valve: The mitral valve leaflets are mildly thickened. There is mild mitral regurgitation. There is no evidence of mitral stenosis. Tricuspid Valve: The tricuspid valve is not well visualized. There is mild tricuspid regurgitation. The right ventricular systolic pressure is calculated at 23 mmHg. The right ventricular systolic pressure is estimated to be 20-25 mmHg. No pulmonary hypertension is noted. There is no tricuspid stenosis. Pulmonic Valve: The pulmonic valve is not well visualized. There is trace pulmonic regurgitation. There is no pulmonic stenosis. Pericardium: There is no pericardial effusion. No pleural effusion is present. Aorta: The aorta appears normal. Pulmonary Artery: The main pulmonary artery is not well visualized. Measurements Chambers MM Name Value Normal Range IVSd (MM) 0.82 cm (0.6 - 1.1) LVPWd (MM) 0.86 cm (0.6 - 1.1) IVS:LVPW ratio 0.95 ratio - LVIDd (MM) 5.57 cm (3.7 - 5.6) LVIDs (MM) 3.54 cm (2 - 2.8) LV FS (Teichholz) (MM) 36.4 % - LV FS (cube) (MM) 36.4 % - EF Teichholz (MM) 65.6 % - Ao root diameter (MM) 3.8 cm (2 - 3.7) LA dimension (AP) MM 4.6 cm (1.9 - 4) LA:Ao ratio (MM) 1.21 ratio - AV cusp separation (MM) 2.2 cm (1.5 - 2.6) Chambers 2D Name Value Normal Range IVSd (2D) 1.13 cm (0.6 - 1.1) LVPWd 1.32 cm - LVPWd (2D) 1.32 cm (0.6 - 1.1) IVS:LVPW ratio (2D) 0.86 ratio - LVIDd 4.3 cm - LVIDs 3.1 cm - LVIDd (2D) 4.33 cm (3.7 - 5.6) LVIDs (2D) 3.05 cm (2 - 3.8) LV FS (Teichholz) (2D) 29.6 % - LV FS (cube) (2D) 29.6 % - LV EF (2D) 56 % - EF Teichholz (2D) 56.9 % - LA dimension 3.7 cm - Ao root diameter (2D) 3.6 cm (2 - 3.7) LA dimension (AP) 2D 3.7 cm (1.9 - 4) LA:Ao ratio (2D) 1.03 ratio - Volumes/Mass Name Value Normal Range LA ESV SP 4CH (MOD) 64 ml - LV EDV SP 4CH (MOD) 106 ml - LV ESV SP 4CH (MOD) 61 ml - EF SP 4CH (MOD) 42 % - Diastolic/Systolic Function Name Value Normal Range MV E-wave Vmax 0.67 m/sec - MV deceleration time 246 msec - MV A-wave Vmax 0.91 m/sec - MV E:A ratio 0.7 ratio - LV septal e' Vmax 0.05 m/sec - LV lateral e' Vmax 0.06 m/sec - LV E:e' septal ratio 13.1 ratio - LV E:e' lateral ratio 10.4 ratio - Aortic Valve Name Value Normal Range AV Vmax 1.39 m/sec - AV peak gradient 8 mmHg - LVOT diameter 2.5 cm - LVOT Vmax 1.02 m/sec - LVOT peak gradient 4 mmHg - JESU (continuity Vmax) 3.6 cm2 - Tricuspid Valve Name Value Normal Range TR Vmax 2.23 m/sec - TR peak gradient 20 mmHg - RAP 3 mmHg - RVSP 23 mmHg - Pulmonic Valve/Qp:Qs Name Value Normal Range PV Vmax 0.83 m/sec - PV peak gradient 3 mmHg - PV acceleration time 113 msec -
--- NOTE | 2016-02-25 11:05 | Progress Note ---
Assessment and Plan Paroxysmal atrial fibrillation currently sinus rhythm optimize electrolytes continue metoprolol 50mg Q6H echo normal lv function normal left atrium size and no significant regurgitations pt. will benefit from OAC, will hold off for now due to recent procedure, continue lovenox Gluteal abscess Hypertension Diabetes Subjective Date of service: 02/25/16 Principal diagnosis: Bilateral gluteal cellulitis, paroxysmal atrial fibrillation Interval history: pt pain is better and no palpations Objective Vital Signs Temp Pulse Pulse Resp BP BP Pulse Ox 02/25/16 07:31 98.1 F 87 14 160/74 99 02/25/16 04:10 85 147/66 02/25/16 04:00 98.7 F 92 H 20 130/70 94 02/25/16 00:00 99.7 F H 73 20 136/67 96 02/24/16 20:00 99.4 F 76 20 145/65 93 02/24/16 17:00 98.6 F 81 20 139/65 02/24/16 11:15 92 H 142/65 - Physical Examination General: No Apparent Distress HEENT: Positive: EOMI, Normocephaly, Mucus Membranes Moist Neck: Positive: neck supple, trachea midline Cardiac: Positive: Reg Rate and Rhythm Lungs: Positive: clear to auscultation Neuro: Positive: Grossly Intact Abdomen: Positive: Soft, Active Bowel Sounds. Negative: Tender Skin: Positive: Clear. Negative: Rash Musculoskeletal: Normal Range of Motion, other (tenderness over the buttock area ) Extremities: Present: normal. Absent: edema - Labs and Meds Cardiac Enzymes 02/25/16 Range/Units 07:43 AST 50 H (5-40) units/L CBC 02/25/16 Range/Units 07:43 WBC 12.8 H (4.5-11.0) K/mm3 RBC 3.71 (3.65-5.03) M/mm3 Hgb 11.3 L (11.8-15.2) gm/dl Hct 34.0 L (35.5-45.6) % Plt Count 413 (140-440) K/mm3 Lymph # 1.7 (1.2-5.4) K/mm3 [place] # 1.2 H (0.0-0.8) K/mm3 Eos # 0.2 (0.0-0.4) K/mm3 Baso # 0.0 (0.0-0.1) K/mm3 Comprehensive Metabolic Panel 02/25/16 Range/Units 07:43 Sodium 145 D (137-145) mmol/L Potassium 3.8 (3.6-5.0) mmol/L Chloride 105.5 (98-107) mmol/L Carbon Dioxide 28 (22-30) mmol/L BUN 8 L (9-20) mg/dL Creatinine 0.7 L (0.8-1.5) mg/dL Glucose 69 L (75-100) mg/dL Calcium 7.8 L (8.4-10.2) mg/dL AST 50 H (5-40) units/L ALT 43 (7-56) units/L Alkaline Phosphatase 105 (35-129) units/L Total Protein 5.4 L (6.3-8.2) g/dL Albumin 1.9 L (3.9-5) g/dL - Imaging and Cardiology EKG: image reviewed Echo: report reviewed (normal lv function no signficant regurtitations) - Telemetry EKG Rhythm: Sinus Rhythm (at 100 no afib noted) Repolarization changes or abnormalities: nonspecific abnormality, ST segment, and/or T wave
[2016-02-25] MEDS: LOVENOX SUB-Q SCH ×2 (11:06→21:47)
[2016-02-25] MEDS: ECOTRIN PO SCH (11:06)
--- NOTE | 2016-02-25 11:14 | Progress Note ---
Assessment and Plan - Patient Problems (1) Cellulitis of gluteal region Current Visit: Yes Status: Acute Plan to address problem: Continue Abx (2) Gluteal abscess Diagnosis Date: 02/17/16 Current Visit: Yes Status: Acute Plan to address problem: Antibiotics as ordered , local wound care (3) H/O atrial fibrillation without current medication Diagnosis Date: 02/17/16 Current Visit: Yes Status: Acute Plan to address problem: Stable continue current care Subjective Date of service: 02/25/16 Principal diagnosis: Bilateral gluteal cellulitis, paroxysmal atrial fibrillation Interval history: Patient feels better , denied any new complaints Objective - Constitutional Vitals: Vital Signs - 12hr 02/25/16 02/25/16 02/25/16 00:00 04:00 04:10 Temperature 99.7 F H 98.7 F Pulse Rate 85 Pulse Rate [ 73 92 H Right Radial] Respiratory 20 20 Rate Blood Pressure 147/66 Blood Pressure 136/67 130/70 [Right Arm] O2 Sat by Pulse 96 94 Oximetry 02/25/16 07:31 Temperature 98.1 F Pulse Rate Pulse Rate [ 87 Right Radial] Respiratory 14 Rate Blood Pressure Blood Pressure 160/74 [Right Arm] O2 Sat by Pulse 99 Oximetry General appearance: Present: no acute distress - EENT Eyes: EOM intact ENT: dentition normal - Neck Neck: supple, normal ROM - Respiratory Respiratory: bilateral: CTA - Breasts Breasts: deferred - Cardiovascular Rhythm: regular Heart Sounds: Present: S1 & S2 Extremities: no ischemia - Gastrointestinal General gastrointestinal: Present: soft, non-tender - Genitourinary Male genitourinary: deferred - Integumentary Integumentary: warm, dry - Musculoskeletal Musculoskeletal: strength equal bilaterally - Neurologic Neurologic: CNII-XII intact - Psychiatric Psychiatric: appropriate mood/affect - Labs CBC & Chem 7: 02/25/16 07:43 02/25/16 07:43 Labs: Abnormal lab results 02/24/16 02/25/16 02/25/16 Range/Units 21:18 07:43 07:43 WBC 12.8 H (4.5-11.0) K/mm3 Hgb 11.3 L (11.8-15.2) gm/dl Hct 34.0 L (35.5-45.6) % Lymph % (Auto) 13.3 L (13.4-35.0) % [place] % (Auto) 9.8 H (0.0-7.3) % [place] # 1.2 H (0.0-0.8) K/mm3 Seg Neutrophils % 75.2 H (40.0-70.0) % Seg Neutrophils # 9.6 H (1.8-7.7) K/mm3 BUN 8 L (9-20) mg/dL Creatinine 0.7 L (0.8-1.5) mg/dL Glucose 69 L (75-100) mg/dL POC Glucose 147 H (70-105) Calcium 7.8 L (8.4-10.2) mg/dL AST 50 H (5-40) units/L Total Protein 5.4 L (6.3-8.2) g/dL Albumin 1.9 L (3.9-5) g/dL
[2016-02-25] MEDS: ZESTRIL PO SCH (11:15)
[2016-02-25] MEDS: SENOKOT PO SCH ×2 (11:15→21:49)
[2016-02-25] MEDS: COLACE PO SCH ×2 (11:16→21:49)
[2016-02-25] MEDS: LEVEMIR SUB-Q SCH ×2 (12:18→23:41)
--- NOTE | 2016-02-25 14:19 | Progress Note ---
Assessment and Plan Current antibiotics: Vancomycin 1250 mg IV q12h 02/15 --> Zosyn 4.5 g IV q8h 02/17 --> Previous antibiotics: Zosyn 4.5 g IV X 1 02/15 ASSESSMENT: Rajeev Hsu is a 70-year-old male with type 2 diabetes mellitus, paroxysmal atrial fibrillation and hypertension who was admitted to [facility] on 02/16/[address] Mead and his office with hyperglycemia and bilateral gluteal pain that started suddenly early on 02/07/16. CT scan shows a possible early abscess in the precoccygeal/presacral area. Problem list: 1. Severe bilateral gluteal pain -Associated induration and increased warmth and marked tenderness to palpation -Rule out gluteal cellulitis although bilaterality is unusual -Rule out early necrotizing fasciitis -Rule out other cause loading referred pain from #2 -Status post I & D of right buttocks abscess 02/17 (details unclear) with culture negative 2. Type 2 diabetes mellitus -Poor glycemic control -Hemoglobin A1c of > [address] Mead's note -DKA 3. Lactic acidosis -Likely secondary to #1 and #2 5. History of paroxysmal atrial fibrillation -In sinus rhythm at present on exam 6. Leukocytosis -Secondary to #1 and #2 PLAN: 1. Continue vancomycin and Zosyn. Hopefully can switch to oral antibiotics soon. 2. Glycemic control as per Dr. Mead 3. Follow clinical exam closely for evidence of necrotizing fasciitis Subjective Date of service: 02/25/16 Principal diagnosis: Bilateral gluteal cellulitis, paroxysmal atrial fibrillation Interval history: Complaining of left gluteal tenderness greater than right. Objective - Exam Narrative Exam: No distress. HEENT: Pupils are equal reactive to light and accommodation. Conjunctiva clear. Oropharynx is normal with no evidence of oral candidiasis or pharyngitis. NECK: Supple. No enlargement of the thyroid gland. No significant cervical lymphadenopathy. No jugular venous distention at 30. LUNGS: Clear with no adventitious sounds. HEART: Regular rate. S1 and S2 are normal. There are no murmurs, gallops, clicks or rubs heard. ABDOMEN: Soft and nontender. Liver and spleen are not palpably enlarged or tender. No palpable masses. Bowel sounds are normoactive. : Marked induration and tenderness over bilateral gluteal areas. Mild erythema. No fluctuant sites. EXTREMITIES: No rash, peripheral lymphadenopathy, clubbing or edema. SKIN: No other rash, ulcers or wounds. NEUROLOGIC: No focal findings. - Constitutional Vitals: Vital Signs Temp Pulse Resp BP Pulse Ox 98.1 F 93 H 14 140/64 99 02/25/16 07:31 02/25/16 11:40 02/25/16 07:31 02/25/16 11:40 02/25/16 07:31 Temperature -Last 24 Hours Temperature 98.1 F Temperature 98.7 F Temperature 99.7 F Temperature 99.4 F Temperature 98.6 F - Labs CBC & Chem 7: 02/25/16 07:43 02/25/16 07:43 Labs: Abnormal lab results 02/24/16 02/25/16 02/25/16 Range/Units 21:18 07:43 07:43 WBC 12.8 H (4.5-11.0) K/mm3 Hgb 11.3 L (11.8-15.2) gm/dl Hct 34.0 L (35.5-45.6) % Lymph % (Auto) 13.3 L (13.4-35.0) % [place] % (Auto) 9.8 H (0.0-7.3) % [place] # 1.2 H (0.0-0.8) K/mm3 Seg Neutrophils % 75.2 H (40.0-70.0) % Seg Neutrophils # 9.6 H (1.8-7.7) K/mm3 BUN 8 L (9-20) mg/dL Creatinine 0.7 L (0.8-1.5) mg/dL Glucose 69 L (75-100) mg/dL POC Glucose 147 H (70-105) Calcium 7.8 L (8.4-10.2) mg/dL AST 50 H (5-40) units/L Total Protein 5.4 L (6.3-8.2) g/dL Albumin 1.9 L (3.9-5) g/dL
--- NOTE | 2016-02-25 15:46 | Progress Note ---
Assessment and Plan - Patient Problems (1) Cellulitis of gluteal region Current Visit: Yes Status: Acute Plan to address problem: continue antibiotics no drainage required no clinical evidence (crepitance, fevers,inc WBC) to suggest fascitis Subjective Date of service: 02/25/16 Patient Reports: Positive: feels better Objective Vital Signs - 12hr 02/25/16 02/25/16 02/25/16 04:00 04:10 07:31 Temperature 98.7 F 98.1 F Pulse Rate 85 Pulse Rate [ 92 H 87 Right Radial] Respiratory 20 14 Rate Blood Pressure 147/66 Blood Pressure 130/70 160/74 [Right Arm] O2 Sat by Pulse 94 99 Oximetry 02/25/16 02/25/16 02/25/16 11:15 11:30 11:40 Temperature Pulse Rate 93 H 93 H 93 H Pulse Rate [ Right Radial] Respiratory Rate Blood Pressure 140/64 140/93 140/64 Blood Pressure [Right Arm] O2 Sat by Pulse Oximetry 02/25/16 15:09 Temperature 98.1 F Pulse Rate Pulse Rate [ 94 H Right Radial] Respiratory 14 Rate Blood Pressure Blood Pressure 139/64 [Right Arm] O2 Sat by Pulse 99 Oximetry - General physical appearance no distress - Integumentary other (B buttocks with induration without crepitance or drainge or fluctulence to suggest abscess) - Labs 02/25/16 07:43 02/25/16 07:43 Diabetes panel 02/25/16 Range/Units 07:43 Sodium 145 D (137-145) mmol/L Potassium 3.8 (3.6-5.0) mmol/L Chloride 105.5 (98-107) mmol/L Carbon Dioxide 28 (22-30) mmol/L BUN 8 L (9-20) mg/dL Creatinine 0.7 L (0.8-1.5) mg/dL Glucose 69 L (75-100) mg/dL Calcium 7.8 L (8.4-10.2) mg/dL AST 50 H (5-40) units/L ALT 43 (7-56) units/L Alkaline Phosphatase 105 (35-129) units/L Total Protein 5.4 L (6.3-8.2) g/dL Albumin 1.9 L (3.9-5) g/dL Calcium panel 02/25/16 Range/Units 07:43 Calcium 7.8 L (8.4-10.2) mg/dL Albumin 1.9 L (3.9-5) g/dL Pituitary panel 02/25/16 Range/Units 07:43 Sodium 145 D (137-145) mmol/L Potassium 3.8 (3.6-5.0) mmol/L Chloride 105.5 (98-107) mmol/L Carbon Dioxide 28 (22-30) mmol/L BUN 8 L (9-20) mg/dL Creatinine 0.7 L (0.8-1.5) mg/dL Glucose 69 L (75-100) mg/dL Calcium 7.8 L (8.4-10.2) mg/dL Adrenal panel 02/25/16 Range/Units 07:43 Sodium 145 D (137-145) mmol/L Potassium 3.8 (3.6-5.0) mmol/L Chloride 105.5 (98-107) mmol/L Carbon Dioxide 28 (22-30) mmol/L BUN 8 L (9-20) mg/dL Creatinine 0.7 L (0.8-1.5) mg/dL Glucose 69 L (75-100) mg/dL Calcium 7.8 L (8.4-10.2) mg/dL Total Bilirubin 0.2 (0.1-1.2) mg/dL AST 50 H (5-40) units/L ALT 43 (7-56) units/L Alkaline Phosphatase 105 (35-129) units/L Total Protein 5.4 L (6.3-8.2) g/dL Albumin 1.9 L (3.9-5) g/dL
[2016-02-25] MEDS: RESTORIL PO SCH (21:47)
[2016-02-25] MEDS: MORPHINE IV PRN (23:57)
[2016-02-26] MEDS: NOVOLOG SUB-Q SCH ×6 (01:26→23:44)
[2016-02-26] MEDS: VANCOMYCIN VIAL 1,250 MG in NACL 0.9% 250ML 250 ML IV SCH ×2 (03:54→11:27)
[2016-02-26] MEDS: ZOSYN/NS 4.5GM/100ML 100 ML IV SCH ×3 (05:37→18:01)
[2016-02-26] MEDS: LOPRESSOR PO SCH ×3 (07:17→21:13)
[2016-02-26] MEDS: GLUCOPHAGE PO SCH ×2 (09:07→17:00)
[2016-02-26] MEDS: SENOKOT PO SCH ×3 (10:30→21:13)
[2016-02-26] MEDS: COLACE PO SCH ×4 (10:30→21:28)
[2016-02-26] MEDS: LEVEMIR SUB-Q SCH ×2 (10:38→23:43)
[2016-02-26] MEDS: MORPHINE IV PRN ×2 (10:38→18:45)
[2016-02-26] MEDS: ZESTRIL PO SCH (10:39)
[2016-02-26] MEDS: ECOTRIN PO SCH (10:40)
[2016-02-26] MEDS: LOVENOX SUB-Q SCH ×2 (10:40→21:12)
--- NOTE | 2016-02-26 11:25 | Progress Note ---
Assessment and Plan Paroxysmal atrial fibrillation currently sinus rhythm optimize electrolytes Change to metoprolol 100 mg twice a day echo normal lv function normal left atrium size and no significant regurgitations Gluteal abscess Hypertension Diabetes Subjective Date of service: 02/26/16 Principal diagnosis: Bilateral gluteal cellulitis, paroxysmal atrial fibrillation Interval history: Patient denies any palpitations is still continue butt pain Objective Vital Signs Temp Pulse Pulse Pulse Resp BP BP 02/26/16 08:00 98.3 F 80 20 140/68 02/26/16 07:17 84 146/67 02/26/16 05:00 98.9 F 80 20 02/26/16 00:00 97.9 F 82 20 135/64 02/25/16 23:57 82 20 135/62 02/25/16 20:03 97.8 F 86 24 141/66 02/25/16 18:02 90 143/68 02/25/16 17:58 90 143/68 02/25/16 15:09 98.1 F 94 H 14 02/25/16 11:40 93 H 140/64 02/25/16 11:30 93 H 140/93 BP Pulse Ox 02/26/16 08:00 97 02/26/16 07:17 02/26/16 05:00 136/59 95 02/26/16 00:00 98 02/25/16 23:57 02/25/16 20:03 95 02/25/16 18:02 02/25/16 17:58 02/25/16 15:09 139/64 99 02/25/16 11:40 02/25/16 11:30 - Physical Examination General: No Apparent Distress HEENT: Positive: EOMI, Normocephaly, Mucus Membranes Moist Neck: Positive: neck supple, trachea midline Cardiac: Positive: Reg Rate and Rhythm Lungs: Positive: clear to auscultation Neuro: Positive: Grossly Intact Abdomen: Positive: Soft, Active Bowel Sounds. Negative: Tender Skin: Positive: Clear. Negative: Rash Musculoskeletal: Normal Range of Motion, other (tenderness over the buttock area ) Extremities: Present: normal. Absent: edema - Imaging and Cardiology EKG: image reviewed Echo: report reviewed (normal lv function no signficant regurtitations) - Telemetry EKG Rhythm: Sinus Rhythm (no A. fib noted for last 4 days) Repolarization changes or abnormalities: nonspecific abnormality, ST segment, and/or T wave
--- NOTE | 2016-02-26 11:44 | Progress Note ---
Assessment and Plan - Patient Problems (1) Cellulitis of gluteal region Current Visit: Yes Status: Acute Plan to address problem: Continue Abx Will discuss with general surgery if further Iand D is being planned otherwise will plan to dc patient if ID advises to change to oral antibiotics (2) Gluteal abscess Diagnosis Date: 02/17/16 Current Visit: Yes Status: Acute Plan to address problem: Antibiotics as ordered , local wound care S/P I&D at bedside still with consderable tenderness and induration in both gluteal region (3) H/O atrial fibrillation without current medication Diagnosis Date: 02/17/16 Current Visit: Yes Status: Acute Plan to address problem: Stable continue current care Subjective Date of service: 02/26/16 Principal diagnosis: Bilateral gluteal cellulitis, paroxysmal atrial fibrillation Interval history: Patient seen and examined .Patient denied any new complaints beside ongoing pain in the gluteal region and lower back , no fever reported Objective - Constitutional Vitals: Vital Signs - 12hr 02/25/16 02/26/16 02/26/16 23:57 00:00 05:00 Temperature 97.9 F 98.9 F Pulse Rate 82 Pulse Rate [ 82 80 Left] Respiratory 20 20 20 Rate Blood Pressure 135/62 Blood Pressure 135/64 [Left Arm] Blood Pressure 136/59 [Right Arm] O2 Sat by Pulse 98 95 Oximetry 02/26/16 02/26/16 07:17 08:00 Temperature 98.3 F Pulse Rate 84 Pulse Rate [ 80 Left] Respiratory 20 Rate Blood Pressure 146/67 Blood Pressure 140/68 [Left Arm] Blood Pressure [Right Arm] O2 Sat by Pulse 97 Oximetry General appearance: Present: no acute distress - EENT ENT: hearing intact Ears: bilateral: normal - Neck Neck: normal ROM - Respiratory Respiratory effort: normal Respiratory: bilateral: CTA - Cardiovascular Rhythm: irregularly irregular Extremities: no ischemia - Gastrointestinal General gastrointestinal: Present: soft, non-tender, non-distended, normal bowel sounds Rectal Exam: other (swelling and induration in both gluteal region ,erythema and tenderness over the coccyx, warm to touch and tender .) - Integumentary Integumentary: warm, erythema (over glutea region bilateral , firm and tender ) - Musculoskeletal Musculoskeletal: strength equal bilaterally - Psychiatric Psychiatric: appropriate mood/affect - Labs CBC & Chem 7: 02/25/16 07:43 02/25/16 07:43 Labs: Abnormal lab results 02/25/16 02/25/16 02/26/16 Range/Units 11:50 17:23 06:14 POC Glucose 136 H 112 H 127 H (70-105) 02/26/16 Range/Units 11:07 POC Glucose 150 H (70-105)
--- NOTE | 2016-02-26 12:24 | Progress Note ---
Assessment and Plan Current antibiotics: Vancomycin 1250 mg IV q12h 02/15 --> Zosyn 4.5 g IV q8h 02/17 --> Previous antibiotics: Zosyn 4.5 g IV X 1 02/15 ASSESSMENT: Rajeev Hsu is a 70-year-old male with type 2 diabetes mellitus, paroxysmal atrial fibrillation and hypertension who was admitted to [facility] on 02/16/[address] Mead and his office with hyperglycemia and bilateral gluteal pain that started suddenly early on 02/07/16. CT scan shows a possible early abscess in the precoccygeal/presacral area. Problem list: 1. Severe bilateral gluteal pain -Associated induration and increased warmth and marked tenderness to palpation -Rule out gluteal cellulitis although bilaterality is unusual -Rule out early necrotizing fasciitis -Rule out other cause loading referred pain from #2 -Status post I & D of right buttocks abscess 02/17 -repeat ct scan with worsening inflammatory changes, surgery saw patient and did not believe surgical intervention was needed at this time 2. Type 2 diabetes mellitus -Poor glycemic control -Hemoglobin A1c of > [address] Mead's note -DKA 3. Lactic acidosis -Likely secondary to #1 and #2 5. History of paroxysmal atrial fibrillation -In sinus rhythm at present on exam 6. Leukocytosis -Secondary to #1 and #2 PLAN: 1. Continue vancomycin and Zosyn. 2. continued close observation of buttock examination Subjective Date of service: 02/26/16 Principal diagnosis: Bilateral gluteal cellulitis, paroxysmal atrial fibrillation Interval history: Patient with continued buttock pain, he is unable to apply pressure. Objective - Constitutional Vitals: Selected Entries 02/26/16 08:00 Temperature 98.3 F Pulse Rate [ 80 Left] Respiratory 20 Rate O2 Sat by Pulse 97 Oximetry Blood Pressure 140/68 [Left Arm] Blood Pressure 92 Mean [Left Arm] General appearance: Present: no acute distress, well-nourished - EENT Eyes: PERRL, EOM intact, no scleral icterus, no conjunctival injection ENT: hearing intact, clear oral mucosa, no oropharyngeal erythema, no poor dentition Ears: bilateral: normal - Neck Neck: supple, normal ROM, no enlarged thyroid, no masses or JVD - Respiratory Respiratory effort: normal Respiratory: bilateral: CTA - Breasts Breasts: normal - Cardiovascular Rhythm: regular Heart Sounds: Present: S1 & S2 Extremities: no ischemia, No edema - Gastrointestinal General gastrointestinal: Present: soft, non-tender, normal bowel sounds Rectal Exam: deferred - Genitourinary Male genitourinary: deferred - Additional findings Additional findings: bilateral buttocks indurated, tender and swollen, worseon the left - Labs CBC & Chem 7: 02/25/16 07:43 02/25/16 07:43 Labs: Microbiology 02/16/16 Unknown Peripheral/Venous Blood Culture - Final NO GROWTH AFTER 5 DAYS 02/16/16 Unknown Peripheral/Venous Blood Culture - Final NO GROWTH AFTER 5 DAYS Laboratory Tests 02/25/16 02/25/16 07:43 07:43 WBC 12.8 H Plt Count 413 Creatinine 0.7 L
--- NOTE | 2016-02-26 16:52 | Progress Note ---
Assessment and Plan - Patient Problems (1) Cellulitis of gluteal region Current Visit: Yes Status: Acute Plan to address problem: no evidence of abscess continue antibiotics ( may switch to po as per ID) Subjective Date of service: 02/26/16 Patient Reports: Positive: feels better, still having pain Objective Vital Signs - 12hr 02/26/16 02/26/16 02/26/16 05:00 07:17 08:00 Temperature 98.9 F 98.3 F Pulse Rate 84 Pulse Rate [ Apical] Pulse Rate [ 80 80 Left] Respiratory 20 20 Rate Blood Pressure 146/67 Blood Pressure 140/68 [Left Arm] Blood Pressure 136/59 [Right Arm] O2 Sat by Pulse 95 97 Oximetry 02/26/16 15:56 Temperature 98.5 F Pulse Rate Pulse Rate [ 76 Apical] Pulse Rate [ Left] Respiratory 22 Rate Blood Press ure Blood Pressure 122/58 [Left Arm] Blood Pressure [Right Arm] O2 Sat by Pulse Oximetry - Integumentary other (buttocks with induration without fluctulence/crepitance) - Labs 02/25/16 07:43 02/25/16 07:43
[2016-02-26] MEDS: RESTORIL PO SCH (21:26)
[2016-02-27] MEDS: ZOSYN/NS 4.5GM/100ML 100 ML IV SCH ×2 (03:40→11:12)
[2016-02-27] MEDS: VANCOMYCIN VIAL 1,250 MG in NACL 0.9% 250ML 250 ML IV SCH ×2 (05:22→20:45)
[2016-02-27 07:34] LABS: Basophils % (Auto) 0.6 % (0.0-1.8); Eosinophils % (Auto) 1.4 % (0.0-4.3); Hematocrit 32.6 % (35.5-45.6); Hemoglobin 10.7 gm/dl (11.8-15.2); Mean Corpuscular HGB Conc 33 % (32-34); Mean Corpuscular Hemoglobin 30 pg (28-32); Mean Corpuscular Volume 91 fl (84-94); Platelet Count 390 K/mm3 (140-440); Red Blood Count 3.59 M/mm3 (3.65-5.03); Red Cell Distribution Width 13.4 % (13.2-15.2); White Blood Count 9.1 K/mm3 (4.5-11.0)
[2016-02-27] MEDS: NOVOLOG SUB-Q SCH ×4 (07:41→21:05)
[2016-02-27 07:50] LABS: Alanine Aminotransferase 28 units/L (7-56); Albumin/Globulin Ratio 0.6 %; Alkaline Phosphatase 83 units/L (35-129); Anion Gap 15 mmol/L; BUN/Creatinine Ratio 11.25; Bilirubin,Total 0.3 mg/dL (0.1-1.2); Blood Urea Nitrogen 9 mg/dL (9-20); Calcium 7.5 mg/dL (8.4-10.2); Carbon Dioxide 28 mmol/L (22-30); Chloride 105.3 mmol/L (98-107); Glucose 113 mg/dL (75-100); Potassium 3.8 mmol/L (3.6-5.0); Sodium 144 mmol/L (137-145); Total Protein 5.3 g/dL (6.3-8.2)
[2016-02-27] MEDS ORDERED: ZESTRIL PO SCH (09:15)
--- NOTE | 2016-02-27 09:25 | Progress Note ---
Assessment and Plan 1. Terrell gluteal cellulitis : limited I&D. CT showed worsening collection. Will discuss with surgeon deeper I and D with packing. Blood Cx. yielded no growth so far. Continue with Zosyn and Vanc 2. Piloadenitis and abcess: on antibiotics. 3. Diabetes mellitus: Improved. Blood sugar in giancarlo 100s. A1c changes expected every three months. Continue with Lantus 30 units every 12. Continue with sliding scale insulin and 2000 ADA 4. Paroxysmal Afib. No NSR. Continue with Metoprolol per cardiology and still hold digoxin continue anticoagulation with Lovenox. 5. Hypokalemia: will rechek electrolytes Will discuss with Surgeons regarding piloadenitis with fluctuence likely from abcess of the Piloasdenitis that may be feeding the cellulitis of both gluteal areas. - Patient Problems (1) Gluteal abscess Diagnosis Date: 02/17/16 Current Visit: Yes Status: Acute (2) Diabetes mellitus Diagnosis Date: 02/17/16 Current Visit: Yes Status: Acute Qualifiers: Diabetes mellitus type: type 2 Diabetes mellitus complication status: with skin complications Diabetes mellitus longterm insulin use: without predatory animal exterminator use (3) H/O atrial fibrillation without current medication Diagnosis Date: 02/17/16 Current Visit: Yes Status: Acute (4) SIRS (systemic inflammatory response syndrome) Diagnosis Date: 02/17/16 Current Visit: Yes Status: Acute (5) Hyponatremia Diagnosis Date: 02/17/16 Current Visit: Yes Status: Acute Subjective Date of service: 02/27/16 Principal diagnosis: Bilateral gluteal cellulitis, paroxysmal atrial fibrillation Interval history: feeling slightly better. Gluteal induration improving Local tenderness is better. No fever. no palpitation Objective - Constitutional Vitals: Vital Signs - 12hr 02/27/16 02/27/16 00:02 08:21 Temperature 98.7 F 98 F Pulse Rate [ 78 86 Left] Respiratory 20 18 Rate Blood Pressure 147/68 167/67 [Left Arm] O2 Sat by Pulse 96 97 Oximetry General appearance: Present: no acute distress - EENT Eyes: PERRL - Neck Neck: supple - Respiratory Respiratory: bilateral: CTA - Cardiovascular Rhythm: regular Extremities: no ischemia - Gastrointestinal General gastrointestinal: Present: soft, non-tender, non-distended - Integumentary Integumentary: clear, warm - Musculoskeletal Musculoskeletal: strength equal bilaterally - Neurologic Neurologic: moves all extremities - Psychiatric Psychiatric: appropriate mood/affect - Labs CBC & Chem 7: 02/27/16 06:59 02/27/16 06:59 Labs: Abnormal lab results 02/26/16 02/26/16 02/26/16 Range/Units 10:37 11:07 17:03 RBC (3.65-5.03) M/mm3 Hgb (11.8-15.2) gm/dl Hct (35.5-45.6) % Charlton % (Auto) (0.0-7.3) % Seg Neutrophils % (40.0-70.0) % Glucose (75-100) mg/dL POC Glucose 150 H 107 H (70-105) Calcium (8.4-10.2) mg/dL Total Protein (6.3-8.2) g/dL Albumin (3.9-5) g/dL Vancomycin Trough 24.5 H (5.0-20.0) ug/mL 02/26/16 02/27/16 02/27/16 Range/Units 21:40 05:45 06:59 RBC 3.59 L (3.65-5.03) M/mm3 Hgb 10.7 L (11.8-15.2) gm/dl Hct 32.6 L (35.5-45.6) % Charlton % (Auto) 8.9 H (0.0-7.3) % Seg Neutrophils % 74.0 H (40.0-70.0) % Glucose (75-100) mg/dL POC Glucose 116 H 120 H (70-105) Calcium (8.4-10.2) mg/dL Total Protein (6.3-8.2) g/dL Albumin (3.9-5) g/dL Vancomycin Trough (5.0-20.0) ug/mL 02/27/16 Range/Units 06:59 RBC (3.65-5.03) M/mm3 Hgb (11.8-15.2) gm/dl Hct (35.5-45.6) % Charlton % (Auto) (0.0-7.3) % Seg Neutrophils % (40.0-70.0) % Glucose 113 H (75-100) mg/dL POC Glucose (70-105) Calcium 7.5 L (8.4-10.2) mg/dL Total Protein 5.3 L (6.3-8.2) g/dL Albumin 2.0 L (3.9-5) g/dL Vancomycin Trough (5.0-20.0) ug/mL
[2016-02-27] MEDS: LEVEMIR SUB-Q SCH ×2 (11:10→21:04)
[2016-02-27] MEDS: LOVENOX SUB-Q SCH (11:10)
[2016-02-27] MEDS: LOPRESSOR PO SCH ×2 (11:11→21:01)
[2016-02-27] MEDS: COLACE PO SCH ×2 (11:11→21:05)
[2016-02-27] MEDS: ZESTRIL PO SCH (11:11)
[2016-02-27] MEDS: SENOKOT PO SCH ×2 (11:12→21:01)
[2016-02-27] MEDS: ECOTRIN PO SCH (11:12)
--- NOTE | 2016-02-27 11:36 | Progress Note ---
Addendum entered and electronically signed by BURAK MACHUCA MD 02/27/16 12:09: I have seen and examined the patient and agree with the documentation below. Original Note: Assessment and Plan Continue metoprolol 100mg BID. Increase lisinopril to 20mg PO daily. Will discontinue lovenox and initiate Eliquis 5mg PO BID. - Patient Problems (1) Paroxysmal atrial fibrillation Current Visit: Yes Status: Acute (2) Gluteal abscess Diagnosis Date: 02/17/16 Current Visit: Yes Status: Acute (3) Diabetes mellitus Diagnosis Date: 02/17/16 Current Visit: Yes Status: Chronic Qualifiers: Diabetes mellitus type: type 2 Diabetes mellitus complication status: with skin complications Diabetes mellitus intermediate frame tender insulin use: without intermediate frame tender use (4) Hypertension Current Visit: Yes Status: Chronic Qualifiers: Hypertension type: essential hypertension Qualified Code(s): I10 - Essential (primary) hypertension Subjective Date of service: 02/27/16 Principal diagnosis: Bilateral gluteal cellulitis, paroxysmal atrial fibrillation Interval history: The patient is resting in bed. He states his pain is better today. Sinus rhythm on the monitor. Objective Last Vital Signs Temp 98 F 02/27/16 08:21 Pulse 86 02/27/16 08:21 Resp 18 02/27/16 08:21 BP 167/67 02/27/16 08:21 Pulse Ox 97 02/27/16 08:21 - Physical Examination General: No Apparent Distress HEENT: Positive: EOMI, Normocephaly, Mucus Membranes Moist Neck: Positive: neck supple, trachea midline Cardiac: Positive: Reg Rate and Rhythm, S1/S2 Lungs: Positive: clear to auscultation Neuro: Positive: Grossly Intact Abdomen: Positive: Soft, Active Bowel Sounds. Negative: Tender Skin: Positive: Clear. Negative: Rash Musculoskeletal: Normal Range of Motion, other (tenderness over the buttock area ) Extremities: Present: normal. Absent: edema - Labs and Meds Cardiac Enzymes 02/27/16 Range/Units 06:59 AST 25 (5-40) units/L CBC 02/27/16 Range/Units 06:59 WBC 9.1 (4.5-11.0) K/mm3 RBC 3.59 L (3.65-5.03) M/mm3 Hgb 10.7 L (11.8-15.2) gm/dl Hct 32.6 L (35.5-45.6) % Plt Count 390 (140-440) K/mm3 Lymph # 1.4 (1.2-5.4) K/mm3 Gage # 0.8 (0.0-0.8) K/mm3 Eos # 0.1 (0.0-0.4) K/mm3 Baso # 0.1 (0.0-0.1) K/mm3 Comprehensive Metabolic Panel 02/27/16 Range/Units 06:59 Sodium 144 (137-145) mmol/L Potassium 3.8 (3.6-5.0) mmol/L Chloride 105.3 (98-107) mmol/L Carbon Dioxide 28 (22-30) mmol/L BUN 9 (9-20) mg/dL Creatinine 0.8 (0.8-1.5) mg/dL Glucose 113 H (75-100) mg/dL Calcium 7.5 L (8.4-10.2) mg/dL AST 25 (5-40) units/L ALT 28 (7-56) units/L Alkaline Phosphatase 83 (35-129) units/L Total Protein 5.3 L (6.3-8.2) g/dL Albumin 2.0 L (3.9-5) g/dL - Imaging and Cardiology EKG: image reviewed Echo: report reviewed (normal lv function no signficant regurtitations) - Telemetry EKG Rhythm: Sinus Rhythm Repolarization changes or abnormalities: nonspecific abnormality, ST segment, and/or T wave
--- NOTE | 2016-02-27 12:29 | Progress Note ---
Assessment and Plan Current antibiotics: Vancomycin 1250 mg IV q12h 02/15 --> Zosyn 4.5 g IV q8h 02/17 --> Previous antibiotics: Zosyn 4.5 g IV X 1 02/15 ASSESSMENT: Rajeev Hsu is a 70-year-old male with type 2 diabetes mellitus, paroxysmal atrial fibrillation and hypertension who was admitted to [facility] on 02/16/[address] Mead and his office with hyperglycemia and bilateral gluteal pain that started suddenly early on 02/07/16. CT scan shows a possible early abscess in the precoccygeal/presacral area. Problem list: 1. Severe bilateral gluteal pain -Associated induration and increased warmth and marked tenderness to palpation -Rule out gluteal cellulitis although bilaterality is unusual -Rule out early necrotizing fasciitis -Rule out other cause loading referred pain from #2 -Status post I & D of right buttocks abscess 02/17 (details unclear) with culture negative -02/22 CT scan shows evidence of increased gas and tissues and clinical progress is extremely slow. 2. Type 2 diabetes mellitus -Poor glycemic control -Hemoglobin A1c of > [address] Mead's note -DKA 3. Lactic acidosis -Likely secondary to #1 and #2 5. History of paroxysmal atrial fibrillation -In sinus rhythm at present on exam 6. Leukocytosis -Secondary to #1 and #2 PLAN: 1. Continue vancomycin and Zosyn 2. M still concerned that lack of clinical progression at this point is secondary to undrained pus plus/minus possible underlying necrosis. Will discuss with surgery 3. Glycemic control as per Dr. Mead 4. Follow clinical exam closely for evidence of necrotizing fasciitis Xavier Ruby MD [facility] Office: [phone] Subjective Date of service: 02/27/16 Principal diagnosis: Bilateral gluteal cellulitis, paroxysmal atrial fibrillation Interval history: Still with significant gluteal pain but "better." Continues to tolerate antibiotics well to date. ROS: No subjective fever or chills. No nausea, vomiting or diarrhea. No shortness of breath, cough or pleuritic chest pain Objective - Exam Narrative Exam: GENERAL: Well-developed, well-nourished appearing male who is alert and in no acute distress but still lying on his side avoiding pressure to the gluteal areas. HEAD: Normocephalic. No lesions seen. EYES: Pupils are equal reactive to light and accommodation. There is no scleral icterus. Optic fundi are not examined. EARS: Tympanic membranes are normal. THROAT: Oropharynx is normal with no evidence of oral candidiasis or pharyngitis. Poor dentition but no obvious dental infection seen. NECK: Supple. No enlargement of the thyroid gland. No significant cervical lymphadenopathy. No jugular venous distention at 30. LUNGS: Clear with no adventitious sounds. HEART: Regular rate. S1 and S2 are normal. There are no murmurs, gallops, clicks or rubs heard. ABDOMEN: Soft and nontender. Liver and spleen are not palpably enlarged or tender. No palpable masses. Bowel sounds are normoactive. EXTREMITIES: No rash, peripheral lymphadenopathy, clubbing or edema. Bilateral induration and tenderness over both gluteal areas that really has not changed much since I saw him last on 02/22. Left gluteal area more indurated as compared to right. No definite fluctuance nor crepitus. There is moderate increased warmth but no erythema seen. : Normal external male. No penile lesions or urethral discharge. No testicular masses or tenderness. NEUROLOGIC: No focal findings. - Constitutional Vitals: Vital Signs Temp Pulse Resp BP Pulse Ox 98.5 F 86 12 166/71 94 02/27/16 12:04 02/27/16 12:04 02/27/16 12:04 02/27/16 12:04 02/27/16 12:04 Temperature -Last 24 Hours Temperature 98.5 F Temperature 98 F Temperature 98.7 F Temperature 98.3 F Temperature 98.5 F - Labs CBC & Chem 7: 02/27/16 06:59 02/27/16 06:59 Labs: Abnormal lab results Microbiology 02/16/16 Unknown Peripheral/Venous Blood Culture - Final NO GROWTH AFTER 5 DAYS 02/16/16 Unknown Peripheral/Venous Blood Culture - Final NO GROWTH AFTER 5 DAYS 02/18/16 11:30 Buttock Wound Culture - No growth. Gram stain with no PMNs and no organisms seen Imagin/30: CT pelvis: Fluid and gas collection in the midline located dorsal to the sacrum and coccyx consistent with infection with a gas-forming organism. The extent of the gas has increased and spread further laterally into both gluteal destinee muscles. The overlying skin remains thickened consistent with cellulitis.
--- NOTE | 2016-02-27 15:28 | Progress Note ---
Assessment and Plan 1. Continue antibiotics. WBC is decreasing. Clinically, there is no evidence of fluctuance or worsening erythema/induration that would definitively warrant surgical intervention. Subjective Date of service: 02/27/16 Narrative: The patient states that his B/L gluteal pain is improving. He is able to get up and walk around. Objective Vital Signs - 12hr 02/27/16 02/27/16 08:21 12:04 Temperature 98 F 98.5 F Pulse Rate [ 86 Left] Pulse Rate [ 86 Right Radial] Respiratory 18 12 Rate Blood Pressure 167/67 [Left Arm] Blood Pressure 166/71 [Right Arm] O2 Sat by Pulse 97 94 Oximetry - Abdomen soft (upper B/L gluteal induration is still present but decreasing. Minimal overlying erythema. ) - Labs 02/27/16 06:59 02/27/16 06:59 Diabetes panel 02/27/16 Range/Units 06:59 Sodium 144 (137-145) mmol/L Potassium 3.8 (3.6-5.0) mmol/L Chloride 105.3 (98-107) mmol/L Carbon Dioxide 28 (22-30) mmol/L BUN 9 (9-20) mg/dL Creatinine 0.8 (0.8-1.5) mg/dL Glucose 113 H (75-100) mg/dL Calcium 7.5 L (8.4-10.2) mg/dL AST 25 (5-40) units/L ALT 28 (7-56) units/L Alkaline Phosphatase 83 (35-129) units/L Total Protein 5.3 L (6.3-8.2) g/dL Albumin 2.0 L (3.9-5) g/dL Calcium panel 02/27/16 Range/Units 06:59 Calcium 7.5 L (8.4-10.2) mg/dL Albumin 2.0 L (3.9-5) g/dL Pituitary panel 02/27/16 Range/Units 06:59 Sodium 144 (137-145) mmol/L Potassium 3.8 (3.6-5.0) mmol/L Chloride 105.3 (98-107) mmol/L Carbon Dioxide 28 (22-30) mmol/L BUN 9 (9-20) mg/dL Creatinine 0.8 (0.8-1.5) mg/dL Glucose 113 H (75-100) mg/dL Calcium 7.5 L (8.4-10.2) mg/dL Adrenal panel 02/27/16 Range/Units 06:59 Sodium 144 (137-145) mmol/L Potassium 3.8 (3.6-5.0) mmol/L Chloride 105.3 (98-107) mmol/L Carbon Dioxide 28 (22-30) mmol/L BUN 9 (9-20) mg/dL Creatinine 0.8 (0.8-1.5) mg/dL Glucose 113 H (75-100) mg/dL Calcium 7.5 L (8.4-10.2) mg/dL Total Bilirubin 0.3 (0.1-1.2) mg/dL AST 25 (5-40) units/L ALT 28 (7-56) units/L Alkaline Phosphatase 83 (35-129) units/L Total Protein 5.3 L (6.3-8.2) g/dL Albumin 2.0 L (3.9-5) g/dL
[2016-02-27] MEDS: GLUCOPHAGE PO SCH (17:46)
[2016-02-27] MEDS: MORPHINE IV PRN (20:15)
[2016-02-27] MEDS: RESTORIL PO SCH (21:01)
[2016-02-27] MEDS: ELIQUIS PO SCH (21:01)
[2016-02-28] MEDS: ZOSYN/NS 4.5GM/100ML 100 ML IV SCH ×4 (00:23→22:37)
[2016-02-28] MEDS: VANCOMYCIN VIAL 1,250 MG in NACL 0.9% 250ML 250 ML IV SCH ×2 (07:02→20:06)
--- NOTE | 2016-02-28 09:46 | Progress Note ---
Assessment and Plan 1. Terrell gluteal cellulitis : limited I&D. CT showed worsening collection. Will discuss with surgeon deeper I and D with packing. Blood Cx. yielded no growth so far. Continue with Zosyn and Vanc 2. Piloadenitis and abcess: on antibiotics. 3. Diabetes mellitus: Improved. Blood sugar in the 100s. A1c changes expected every three months. Continue with Lantus 30 units every 12. Continue with sliding scale insulin and 2000 ADA 4. Paroxysmal Afib. No NSR. Continue with Metoprolol per cardiology and still hold digoxin continue anticoagulation with Lovenox. 5. Hypokalemia: Corrected. Will discuss with Surgeons regarding piloadenitis with fluctuence likely from abcess of the Piloadenitis that may be feeding the cellulitis of both gluteal areas. - Patient Problems (1) Gluteal abscess Diagnosis Date: 02/17/16 Current Visit: Yes Status: Acute (2) Diabetes mellitus Diagnosis Date: 02/17/16 Current Visit: Yes Status: Chronic Qualifiers: Diabetes mellitus type: type 2 Diabetes mellitus complication status: with skin complications Diabetes mellitus medical terminologist insulin use: without fdc use (3) H/O atrial fibrillation without current medication Diagnosis Date: 02/17/16 Current Visit: Yes Status: Acute (4) SIRS (systemic inflammatory response syndrome) Diagnosis Date: 02/17/16 Current Visit: Yes Status: Acute (5) Hyponatremia Diagnosis Date: 02/17/16 Current Visit: Yes Status: Acute Subjective Date of service: 02/28/16 Principal diagnosis: Bilateral gluteal cellulitis, paroxysmal atrial fibrillation Interval history: feeling slightly better. still has perdidtent induration and still unable to seat down b/c pain. No fever. Objective - Constitutional Vitals: Vital Signs - 12hr 02/27/16 02/28/16 02/28/16 23:53 04:17 07:30 Temperature 98.9 F 98.5 F 98.5 F Pulse Rate [ 86 86 Left] Pulse Rate [ 79 Right Radial] Respiratory 18 18 18 Rate Blood Pressure 129/60 139/62 161/72 [Left Arm] O2 Sat by Pulse 97 95 98 Oximetry General appearance: Present: no acute distress - EENT Eyes: PERRL - Neck Neck: supple - Respiratory Respiratory: bilateral: CTA - Cardiovascular Rhythm: irregularly irregular Heart Sounds: Present: S1 & S2 Extremities: no ischemia, No edema - Gastrointestinal General gastrointestinal: Present: soft, non-tender, non-distended - Integumentary Integumentary: clear - Musculoskeletal Musculoskeletal: strength equal bilaterally - Neurologic Neurologic: CNII-XII intact - Psychiatric Psychiatric: appropriate mood/affect - Labs CBC & Chem 7: 02/27/16 06:59 02/27/16 06:59 Labs: Abnormal lab results 02/27/16 02/27/16 02/27/16 Range/Units 11:23 17:20 20:52 POC Glucose 223 H 230 H 116 H (70-105) 02/28/16 Range/Units 06:03 POC Glucose 163 H (70-105)
--- NOTE | 2016-02-28 11:08 | Progress Note ---
Addendum entered and electronically signed by BURAK MACHUCA MD 02/28/16 12:51: I have seen and examined the patient and agree with the documentation below. Original Note: Assessment and Plan Stable cardiac status. Continue current management. Will see as needed. - Patient Problems (1) Paroxysmal atrial fibrillation Current Visit: Yes Status: Acute (2) Gluteal abscess Diagnosis Date: 02/17/16 Current Visit: Yes Status: Acute (3) Diabetes mellitus Diagnosis Date: 02/17/16 Current Visit: Yes Status: Chronic Qualifiers: Diabetes mellitus type: type 2 Diabetes mellitus complication status: with skin complications Diabetes mellitus collection supervisor insulin use: without collection supervisor use (4) Hypertension Current Visit: Yes Status: Chronic Qualifiers: Hypertension type: essential hypertension Qualified Code(s): I10 - Essential (primary) hypertension Subjective Date of service: 02/28/16 Principal diagnosis: Bilateral gluteal cellulitis, paroxysmal atrial fibrillation Interval history: The patient is resting in bed. Pain is better today. Sinus rhythm on the monitor. Objective Last Vital Signs Temp 98.5 F 02/28/16 07:30 Pulse 79 02/28/16 07:30 Resp 18 02/28/16 07:30 BP 161/72 02/28/16 07:30 Pulse Ox 98 02/28/16 07:30 - Physical Examination General: No Apparent Distress HEENT: Positive: EOMI, Normocephaly, Mucus Membranes Moist Neck: Positive: neck supple, trachea midline Cardiac: Positive: Reg Rate and Rhythm, S1/S2 Lungs: Positive: clear to auscultation Neuro: Positive: Grossly Intact Abdomen: Positive: Soft, Active Bowel Sounds. Negative: Tender Skin: Positive: Clear. Negative: Rash Musculoskeletal: Normal Range of Motion, other (tenderness over the buttock area ) Extremities: Present: normal. Absent: edema - Imaging and Cardiology EKG: image reviewed Echo: report reviewed (normal lv function no signficant regurtitations) - Telemetry EKG Rhythm: Sinus Rhythm Repolarization changes or abnormalities: nonspecific abnormality, ST segment, and/or T wave
--- NOTE | 2016-02-28 11:23 | Progress Note ---
Assessment and Plan Current antibiotics: Vancomycin 1250 mg IV q12h 02/15 --> Zosyn 4.5 g IV q8h 02/17 --> Previous antibiotics: Zosyn 4.5 g IV X 1 02/15 ASSESSMENT: Rajeev Hsu is a 70-year-old male with type 2 diabetes mellitus, paroxysmal atrial fibrillation and hypertension who was admitted to [facility] on 02/16/[address] Mead and his office with hyperglycemia and bilateral gluteal pain that started suddenly early on 02/07/16. CT scan shows a possible early abscess in the precoccygeal/presacral area. Problem list: 1. Severe bilateral gluteal pain -Associated induration and increased warmth and marked tenderness to palpation -Rule out gluteal cellulitis although bilaterality is unusual -Rule out early necrotizing fasciitis -Rule out other cause loading referred pain from #2 -Status post I & D of right buttocks abscess 02/17 (details unclear) with culture negative -02/22 CT scan shows evidence of increased gas and tissues and clinical progress is extremely slow. 2. Type 2 diabetes mellitus -Poor glycemic control -Hemoglobin A1c of > [address] Mead's note -DKA 3. Lactic acidosis -Likely secondary to #1 and #2 5. History of paroxysmal atrial fibrillation -In sinus rhythm at present on exam 6. Leukocytosis -Secondary to #1 and #2 PLAN: 1. Continue vancomycin and Zosyn 2. M still concerned that lack of clinical progression at this point is secondary to undrained pus plus/minus possible underlying necrosis. Will discuss with surgery 3. Glycemic control as per Dr. Mead 4. Follow clinical exam closely for evidence of necrotizing fasciitis Xavier Ruby MD [facility] Office: [phone] Subjective Date of service: 02/28/16 Principal diagnosis: Bilateral gluteal cellulitis, paroxysmal atrial fibrillation Interval history: Still with significant gluteal pain but "better." Continues to tolerate antibiotics well to date. ROS: No subjective fever or chills. No nausea, vomiting or diarrhea. No shortness of breath, cough or pleuritic chest pain Objective - Exam Narrative Exam: GENERAL: Well-developed, well-nourished appearing male who is alert and in no acute distress but still lying on his side avoiding pressure to the gluteal areas. HEAD: Normocephalic. No lesions seen. EYES: Pupils are equal reactive to light and accommodation. There is no scleral icterus. Optic fundi are not examined. EARS: Tympanic membranes are normal. THROAT: Oropharynx is normal with no evidence of oral candidiasis or pharyngitis. Poor dentition but no obvious dental infection seen. NECK: Supple. No enlargement of the thyroid gland. No significant cervical lymphadenopathy. No jugular venous distention at 30. LUNGS: Clear with no adventitious sounds. HEART: Regular rate. S1 and S2 are normal. There are no murmurs, gallops, clicks or rubs heard. ABDOMEN: Soft and nontender. Liver and spleen are not palpably enlarged or tender. No palpable masses. Bowel sounds are normoactive. EXTREMITIES: No rash, peripheral lymphadenopathy, clubbing or edema. Bilateral induration and tenderness over both gluteal areas that really has not changed much since I saw him last on 02/22. Left gluteal area more indurated as compared to right. No definite fluctuance nor crepitus. There is moderate increased warmth but no erythema seen. : Normal external male. No penile lesions or urethral discharge. No testicular masses or tenderness. NEUROLOGIC: No focal findings. - Constitutional Vitals: Vital Signs Temp Pulse Resp BP Pulse Ox 98.5 F 79 18 161/72 98 02/28/16 07:30 02/28/16 07:30 02/28/16 07:30 02/28/16 07:30 02/28/16 07:30 Temperature -Last 24 Hours Temperature 98.5 F Temperature 98.5 F Temperature 98.9 F Temperature 98.5 F Temperature 97.5 F Temperature 98.5 F - Labs CBC & Chem 7: 02/27/16 06:59 02/27/16 06:59 Labs: Abnormal lab results Microbiology 02/16/16 Unknown Peripheral/Venous Blood Culture - Final NO GROWTH AFTER 5 DAYS 02/16/16 Unknown Peripheral/Venous Blood Culture - Final NO GROWTH AFTER 5 DAYS 02/18/16 11:30 Buttock Wound Culture - No growth. Gram stain with no PMNs and no organisms seen Imagin/30: CT pelvis: Fluid and gas collection in the midline located dorsal to the sacrum and coccyx consistent with infection with a gas-forming organism. The extent of the gas has increased and spread further laterally into both gluteal destinee muscles. The overlying skin remains thickened consistent with cellulitis.
[2016-02-28] MEDS: LOPRESSOR PO SCH ×2 (11:39→21:19)
[2016-02-28] MEDS: GLUCOPHAGE PO SCH ×3 (11:39→16:55)
[2016-02-28] MEDS: ELIQUIS PO SCH ×2 (11:39→21:19)
[2016-02-28] MEDS: ZESTRIL PO SCH (11:39)
[2016-02-28] MEDS: NOVOLOG SUB-Q SCH ×4 (12:36→22:09)
[2016-02-28] MEDS: COLACE PO SCH ×2 (12:37→21:22)
[2016-02-28] MEDS: SENOKOT PO SCH ×2 (12:37→21:22)
[2016-02-28] MEDS: LEVEMIR SUB-Q SCH ×2 (12:37→22:08)
--- NOTE | 2016-02-28 13:48 | Progress Note ---
Subjective Narrative: Pt says he has much less pain in the gluteal areaa - wants to go home soon Afebrile, stable VS Both gluteal areas - induration persists, less than before, mildly tender, no skin erythema or fluctuation, no jason anal extension wbc - normal, fluid fails to grow any bacteria CT reviewed - inflammation, no abscess, sq air + Imp slowly reesolving bilateral gluteal cellulitis Disc with Dr Ruby - ID above made aware - no drainage indicated now will follow Objective Vital Signs - 12hr 02/28/16 02/28/16 04:17 07:30 Temperature 98.5 F 98.5 F Pulse Rate [ 86 Left] Pulse Rate [ 79 Right Radial] Respiratory 18 18 Rate Blood Pressure 139/62 161/72 [Left Arm] O2 Sat by Pulse 95 98 Oximetry - Labs 02/27/16 06:59 02/27/16 06:59
[2016-02-28] MEDS: RESTORIL PO SCH (21:20)
[2016-02-29] MEDS: ZOSYN/NS 4.5GM/100ML 100 ML IV SCH ×3 (04:04→20:06)
[2016-02-29] MEDS: VANCOMYCIN VIAL 1,250 MG in NACL 0.9% 250ML 250 ML IV SCH ×2 (07:38→18:32)
[2016-02-29] MEDS: NOVOLOG SUB-Q SCH ×4 (09:55→23:00)
[2016-02-29] MEDS: TYLENOL PO PRN ×3 (10:08→22:20)
--- NOTE | 2016-02-29 11:11 | Progress Note ---
Assessment and Plan Current antibiotics: Vancomycin 1250 mg IV q12h 02/15 --> Zosyn 4.5 g IV q8h 02/17 --> Previous antibiotics: Zosyn 4.5 g IV X 1 02/15 ASSESSMENT: Rajeev Hsu is a 70-year-old male with type 2 diabetes mellitus, paroxysmal atrial fibrillation and hypertension who was admitted to [facility] on 02/16/[address] Mead and his office with hyperglycemia and bilateral gluteal pain that started suddenly early on 02/07/16. CT scan shows a possible early abscess in the precoccygeal/presacral area. Problem list: 1. Severe bilateral gluteal pain -Associated induration and increased warmth and marked tenderness to palpation -Rule out gluteal cellulitis although bilaterality is unusual -Rule out early necrotizing fasciitis -Rule out other cause loading referred pain from #2 -Status post I & D of right buttocks abscess 02/17 (details unclear) with culture negative -02/22 CT scan shows evidence of increased gas and tissues and clinical progress is extremely slow. 2. Type 2 diabetes mellitus -Poor glycemic control -Hemoglobin A1c of > [address] Mead's note -DKA 3. Lactic acidosis -Likely secondary to #1 and #2 5. History of paroxysmal atrial fibrillation -In sinus rhythm at present on exam 6. Leukocytosis -Secondary to #1 and #2 -Resolved 7. Loose bowel movements -Likely antibiotic related PLAN: 1. Continue vancomycin and Zosyn 2. Discussed with Dr. Chavez yesterday and he is reluctant to do extensive debridement at this point with patient's white count normalizing and no obvious fluctuance on exam. 3. Glycemic control as per Dr. Mead 4. Continue to follow clinical exam closely for evidence of necrotizing fasciitis and/or recurrent abscess development 5. If diarrhea worsens, we will obtain C. diff toxin assay. Xavier Ruby MD [facility] Office: [phone] Subjective Date of service: 02/29/16 Principal diagnosis: Bilateral gluteal cellulitis, paroxysmal atrial fibrillation Interval history: Feels as if he is slowly improving although he still has significant pain. Has developed some loose bowel movements ( X 4 yesterday) ROS: No subjective fever or chills. No nausea or vomiting . No shortness of breath, cough or pleuritic chest pain Objective - Exam Narrative Exam: GENERAL: Well-developed, well-nourished appearing male who is alert and in no acute distress but still lying on his side avoiding pressure to the gluteal areas. HEAD: Normocephalic. No lesions seen. EYES: Pupils are equal reactive to light and accommodation. There is no scleral icterus. Optic fundi are not examined. EARS: Tympanic membranes are normal. THROAT: Oropharynx is normal with no evidence of oral candidiasis or pharyngitis. Poor dentition but no obvious dental infection seen. NECK: Supple. No enlargement of the thyroid gland. No significant cervical lymphadenopathy. No jugular venous distention at 30. LUNGS: Clear with no adventitious sounds. HEART: Regular rate. S1 and S2 are normal. There are no murmurs, gallops, clicks or rubs heard. ABDOMEN: Soft and nontender. Liver and spleen are not palpably enlarged or tender. No palpable masses. Bowel sounds are normoactive. EXTREMITIES: No rash, peripheral lymphadenopathy, clubbing or edema. Bilateral induration and tenderness over both gluteal areas that is some improved peripherally but still significant medially. He is most tender in the coccygeal area but there is still no fluctuance nor crepitus. : Not examined today. NEUROLOGIC: No focal findings. - Constitutional Vitals: Vital Signs Temp Pulse Resp BP Pulse Ox 97.5 F L 96 H 20 140/65 94 02/29/16 09:00 02/29/16 09:00 02/29/16 09:00 02/29/16 09:00 02/29/16 09:00 Temperature -Last 24 Hours Temperature 97.5 F Temperature 98.2 F Temperature 98.7 F - Labs CBC & Chem 7: 02/27/16 06:59 02/27/16 06:59 Labs: Abnormal lab results Microbiology 02/16/16 Unknown Peripheral/Venous Blood Culture - Final NO GROWTH AFTER 5 DAYS 02/16/16 Unknown Peripheral/Venous Blood Culture - Final NO GROWTH AFTER 5 DAYS 02/18/16 11:30 Buttock Wound Culture - No growth. Gram stain with no PMNs and no organisms seen Imagin/30: CT pelvis: Fluid and gas collection in the midline located dorsal to the sacrum and coccyx consistent with infection with a gas-forming organism. The extent of the gas has increased and spread further laterally into both gluteal destinee muscles. The overlying skin remains thickened consistent with cellulitis.
[2016-02-29] MEDS: SENOKOT PO SCH ×2 (11:43→22:38)
[2016-02-29] MEDS: LEVEMIR SUB-Q SCH ×2 (11:49→22:33)
[2016-02-29] MEDS: ZESTRIL PO SCH (11:50)
[2016-02-29] MEDS: ELIQUIS PO SCH ×2 (11:51→22:19)
[2016-02-29] MEDS: LOPRESSOR PO SCH ×2 (11:51→22:31)
[2016-02-29] MEDS: COLACE PO SCH ×2 (11:52→22:38)
[2016-02-29] MEDS: GLUCOPHAGE PO SCH ×2 (11:55→18:27)
--- NOTE | 2016-02-29 16:01 | Progress Note ---
Assessment and Plan 1. Terrell gluteal cellulitis : limited I&D. CT showed worsening collection. Will discuss with surgeon deeper I and D with packing. Blood Cx. yielded no growth so far. Continue with Zosyn and Vanc 2. Piloadenitis and abcess: on antibiotics. 3. Diabetes mellitus: Improved. Blood sugar in the 100s. A1c changes expected every three months. Continue with Lantus 30 units every 12. Continue with sliding scale insulin and 2000 ADA 4. Paroxysmal Afib. No NSR. Continue with Metoprolol per cardiology and still hold digoxin continue anticoagulation with Lovenox. 5. Hypokalemia: Corrected. Surgeons stated that pt does need any extensive I and D as he is proving. D/c plannning for tomorrow - Patient Problems (1) Gluteal abscess Diagnosis Date: 02/17/16 Current Visit: Yes Status: Acute (2) Diabetes mellitus Diagnosis Date: 02/17/16 Current Visit: Yes Status: Chronic Qualifiers: Diabetes mellitus type: type 2 Diabetes mellitus complication status: with skin complications Diabetes mellitus skilled nursing insulin use: without superintendent terminal use (3) H/O atrial fibrillation without current medication Diagnosis Date: 02/17/16 Current Visit: Yes Status: Acute (4) SIRS (systemic inflammatory response syndrome) Diagnosis Date: 02/17/16 Current Visit: Yes Status: Acute (5) Hyponatremia Diagnosis Date: 02/17/16 Current Visit: Yes Status: Acute Subjective Date of service: 02/29/16 Principal diagnosis: Bilateral gluteal cellulitis, paroxysmal atrial fibrillation Interval history: feeling better. Objective - Constitutional Vitals: Vital Signs - 12hr 02/29/16 02/29/16 02/29/16 09:00 11:50 11:51 Temperature 97.5 F L Pulse Rate 96 H 96 H Pulse Rate [ 96 H Left Radial] Respiratory 20 Rate Blood Pressure 140/65 140/65 Blood Pressure 140/65 [Left Arm] O2 Sat by Pulse 94 Oximetry General appearance: Present: no acute distress - EENT Eyes: PERRL - Neck Neck: supple - Cardiovascular Rhythm: regular Heart Sounds: Present: S1 & S2 Extremities: no ischemia - Gastrointestinal General gastrointestinal: Present: soft, non-tender - Genitourinary Male genitourinary: tender - Integumentary Integumentary: clear, warm - Musculoskeletal Musculoskeletal: strength equal bilaterally - Neurologic Neurologic: CNII-XII intact - Psychiatric Psychiatric: appropriate mood/affect - Labs CBC & Chem 7: 02/27/16 06:59 02/27/16 06:59 Labs: Abnormal lab results 02/28/16 02/29/16 Range/Units 16:58 12:54 POC Glucose 122 H 184 H (70-105)
--- NOTE | 2016-02-29 17:07 | Progress Note ---
Assessment and Plan 1. Symptomatically, the patient is improving. He has been afebrile and has a decreasing WBC. At this point, there is no need for surgical intervention. We will sign off at this point. Please re-consult if needed. Subjective Date of service: 02/29/16 Narrative: The patient states that his pain over his gluteal area is improving. He has been walking around. Objective Vital Signs - 12hr 02/29/16 02/29/16 02/29/16 09:00 11:50 11:51 Temperature 97.5 F L Pulse Rate 96 H 96 H Pulse Rate [ 96 H Left Radial] Respiratory 20 Rate Blood Pressure 140/65 140/65 Blood Pressure 140/65 [Left Arm] O2 Sat by Pulse 94 Oximetry - Abdomen soft (decreasing B/L gluteal induration, significantly less tender to palpation , no erythema. ) - Labs 02/27/16 06:59 02/27/16 06:59
[2016-02-29] MEDS: RESTORIL PO SCH (22:21)
[2016-03-01] MEDS: ZOSYN/NS 4.5GM/100ML 100 ML IV SCH (03:00)
[2016-03-01] MEDS: VANCOMYCIN VIAL 1,250 MG in NACL 0.9% 250ML 250 ML IV SCH (05:58)
[2016-03-01] MEDS: MORPHINE IV PRN (06:10)
[2016-03-01] MEDS: NOVOLOG SUB-Q SCH ×2 (08:20→13:51)
[2016-03-01] MEDS: GLUCOPHAGE PO SCH (09:15)
--- NOTE | 2016-03-01 10:07 | Discharge Summary ---
Providers - Providers Date of Admission: 02/17/16 02:15 Date of discharge: 03/01/16 Attending physician: FÁTIMA ALVARADO 02/17/16 11:00 Consult to Physician [CONS] Routine Consulting Provider: PATEL EAST Reason For Exam: Cellusitis with doubtful gas forming organism Place consult to:: Karina Notified:: Was contact made?: Yes Comment:: sent a text 02/17/16 11:02 Consult to Physician [CONS] Routine Consulting Provider: AB SHRESTHA Reason For Exam: gluteal abcess with possible gas forming organism Place consult to:: Scott Notified:: PLEASE CALL MD IN AM Was contact made?: Yes Comment:: said to place patient on list Primary care physician: FÁTIMA ALVARADO Hospitalization Reason for admission: Cellulitis with abcess on bopth gluteus Condition: Stable Pertinent studies: CT abdomen and pelvis showed that pt has abcess in the gluteal area. Procedures: minimal I and D done Hospital course: Pt is a 70 y/o male who is a know diabetic and has been off his meds for weeks because he had been on the road and left his medicine in one of his stop presented to my office yesterday with pain and swelling in both gluteus, the left being worse than the right. Blood sugar was elevated with A1c of >11%. Denies any fever. No chills, N/V. Presented to ED where CT of the abdomen and pelvis showed what appears to be gas forming organisms. Was commence on Zosyn and vanc as well as sliding scale insulin. Blood cx ordered yielded no growth. Surgical consult was obtained. Minimal I and D was done. ID consult obtained. Induration and tenderness improved. Further surgical intervention was deemed unnecessary by the surgeons. Disposition: DISCHARGED TO HOME OR SELFCARE - Discharge Diagnoses (1) Gluteal abscess Status: Acute (2) Diabetes mellitus Status: Chronic Qualifiers: Diabetes mellitus type: type 2 Diabetes mellitus complication status: with skin complications Diabetes mellitus senior living insulin use: without terminal clerk use (3) H/O atrial fibrillation without current medication Status: Acute (4) SIRS (systemic inflammatory response syndrome) Status: Acute (5) Hyponatremia Status: Acute Core Measure Documentation - Palliative Care Palliative Care/ Comfort Measures: Not Applicable - Core Measures Any of the following diagnoses?: none Exam - Constitutional Vitals: Temp Pulse Resp BP Pulse Ox 97.9 F 78 18 175/75 96 03/01/16 08:00 03/01/16 08:00 03/01/16 08:00 03/01/16 08:00 03/01/16 08:00 General appearance: Present: no acute distress - EENT Eyes: Present: PERRL - Neck Neck: Present: supple - Respiratory Respiratory: bilateral: CTA - Cardiovascular Rhythm: regular - Extremities Extremities: no ischemia - Abdominal General gastrointestinal: Present: soft, non-tender, non-distended - Integumentary Integumentary: Present: clear, warm (induration adn erythema in tehgluteal areas improved) - Musculoskeletal Musculoskeletal: strength equal bilaterally - Psychiatric Psychiatric: appropriate mood/affect - Neurologic Neurologic: CNII-XII intact Plan Activity: advance as tolerated Diet: diabetic Follow up with: FÁTIMA ALVARADO MD [Primary Care Provider] - 3-5 Days Prescriptions: Acebutolol HCl [Sectral] 400 mg PO QDAY #30 capsule Apixaban [Eliquis] 5 mg PO Q12HR #60 tablet Aspirin 81 mg PO QAM #30 tab.chew AtorvaSTATin [Lipitor] 40 mg PO DAILY #30 tablet Canagliflozin [Invokana] 100 mg PO QAM #30 tablet Levofloxacin [Levaquin] 750 mg PO QDAY #7 tablet Lisinopril [Zestril TAB] 20 mg PO QDAY #30 tablet Metoprolol [Lopressor TAB] 100 mg PO BID #60 tablet Temazepam [Restoril] 30 mg PO QHS #30 capsule metFORMIN [Glucophage] 850 mg PO BIDDIAB #60 tablet
--- NOTE | 2016-03-01 10:52 | Progress Note ---
Assessment and Plan Current antibiotics: Vancomycin 1250 mg IV q12h 02/15 --> Zosyn 4.5 g IV q8h 02/17 --> Previous antibiotics: Zosyn 4.5 g IV X 1 02/15 ASSESSMENT: Rajeev Hsu is a 70-year-old male with type 2 diabetes mellitus, paroxysmal atrial fibrillation and hypertension who was admitted to [facility] on 02/16/[address] Mead and his office with hyperglycemia and bilateral gluteal pain that started suddenly early on 02/07/16. CT scan shows a possible early abscess in the precoccygeal/presacral area. Problem list: 1. Severe bilateral gluteal pain -Associated induration and increased warmth and marked tenderness to palpation -Rule out gluteal cellulitis although bilaterality is unusual -Rule out early necrotizing fasciitis -Rule out other cause loading referred pain from #2 -Status post I & D of right buttocks abscess 02/17 (details unclear) with culture negative -02/22 CT scan shows evidence of increased gas and tissues and clinical progress is extremely slow. 2. Type 2 diabetes mellitus -Poor glycemic control -Hemoglobin A1c of > [address] Mead's note -DKA 3. Lactic acidosis -Likely secondary to #1 and #2 5. History of paroxysmal atrial fibrillation -In sinus rhythm at present on exam 6. Leukocytosis -Secondary to #1 and #2 -Resolved 7. Loose bowel movements -Likely antibiotic related PLAN: 1. At this point in time would agree with outpatient follow. 2. Suggest oral ciprofloxacin 500 mg twice a day along with oral clindamycin 300 mg 3 times a day for 7-10 days time (hopefully this is not an expensive regimen). 3. Follow-up as per Dr. Mead Subjective Date of service: 03/01/16 Principal diagnosis: Bilateral gluteal cellulitis, paroxysmal atrial fibrillation Interval history: Patient is asking about antibiotic samples. Not sure if he can afford outpatient antibiotics. Objective - Exam Narrative Exam: No distress. HEENT: Pupils are equal reactive to light and accommodation. Conjunctiva clear. Oropharynx is normal with no evidence of oral candidiasis or pharyngitis. NECK: Supple. No enlargement of the thyroid gland. No significant cervical lymphadenopathy. No jugular venous distention at 30. LUNGS: Clear with no adventitious sounds. HEART: Regular rate. S1 and S2 are normal. There are no murmurs, gallops, clicks or rubs heard. ABDOMEN: Soft and nontender. Liver and spleen are not palpably enlarged or tender. No palpable masses. Bowel sounds are normoactive. : Bilateral gluteal site erythema and induration improved versus last visit. No tenderness. No fluctuant sites. EXTREMITIES: No rash, peripheral lymphadenopathy, clubbing or edema. SKIN: No other rash, ulcers or wounds. NEUROLOGIC: No focal findings. - Constitutional Vitals: Vital Signs Temp Pulse Resp BP Pulse Ox 97.9 F 78 18 175/75 96 03/01/16 08:00 03/01/16 08:00 03/01/16 08:00 03/01/16 08:00 03/01/16 08:00 Temperature -Last 24 Hours Temperature 97.9 F Temperature 98.9 F Temperature 98.8 F - Labs CBC & Chem 7: 02/27/16 06:59 02/27/16 06:59 Labs: Abnormal lab results 02/29/16 02/29/16 02/29/16 Range/Units 12:54 16:31 21:35 POC Glucose 184 H 141 H 153 H (70-105) 03/01/16 03/01/16 Range/Units 05:36 06:25 POC Glucose 49 L 114 H (70-105)
[2016-03-01] MEDS: SENOKOT PO SCH (11:00)
[2016-03-01] MEDS ORDERED: LEVAQUIN PO SCH (11:00)
[2016-03-01] MEDS: COLACE PO SCH (11:00)
[2016-03-01] MEDS: LOPRESSOR PO SCH (11:08)
[2016-03-01] MEDS: ELIQUIS PO SCH (11:08)
[2016-03-01] MEDS: ZESTRIL PO SCH (11:09)
[2016-03-01] MEDS: LEVEMIR SUB-Q SCH (11:21)
[2016-03-01] MEDS ORDERED: CLEOCIN PO SCH (14:00)
[2016-03-01 15:33] VITALS: BP 154/73
--- NOTE | 2016-03-06 14:42 | Query-Infection ---
"Dear Date:_03/06/16 Radioactive Waste Disposal Dispatcher/CDS:Ac Stout/ Hardik Phone#:_[phone] Exercise your independent professional judgment when responding to this query. Questions asked do not imply a particular answer is desired or expected. We greatly appreciate your clarification on this issue. Clinical Documentation States: 70 Y/O male admitted on 02/17/16 with Hx. of Diabetes presents with pain and swelling in both gluteus, left worse than the right. He has been off his medications because he has been on the road. Clinical findings show: (please check applicable parameters) Infection, known /suspected, with some of the following indicators; Specify the infection: Gluteal abscess WBC: 17.6 with Bands 17% Temp 103 HR 56 to 106 Lactic acid 2.2 3 General parameters [ ] Fever (core temp >38.30C or 100.40F) [ ] Hypothermia (core temp <36C) [x ] Heart rate >90 bpm [ ] Tachypnea: >20 bpm or pCO2 < 32 mmHg [ ] Altered mental status [ ] Significant edema / +ve fluid balance (>20 ml/kg 24 h) [ ] Hyperglycemia (Bl. glucose >110 mg/dl) w/o diabetes Inflammatory parameters [ ] Leukocytosis (white blood cell count >12,000/l) [ ] Leukopenia (white blood cell count <4,000/l) [ ] Bandemia (immature WBC > 10%) [ ] Leucocyte Left Shift [ ] Plasma procalcitonin>2 SD above the normal value Hemodynamic and tissue perfusion parameters [ ] Arterial hypotension(SBP <90 mmHg, MAP <70 mmHg,or a SBP drop >40 mmHg in adults) [ ] Hyperlactatemia (>3 mmol/l) [ ] Anion Gap (> 11mEG/l) [ ] Decreased capillary refill or mottling Organ dysfunction parameters [ ] Arterial hypoxemia (PaO2/FIO2 <300) [ ] Creatinine increase =0.5 mg/dl [ ] Acute oliguria (urine output <0.5 ml | kg |h or 45 mM/l for at least 2 hrs) [ ] Coagulation abnormalities (INR >1.5 or activated partial thromboplastin time >60 s) [ ] Ileus (absent halima wel sounds) [ ] Thrombocytopenia (platelet count <100,000/l) [ ] Hyperbilirubinemia (plasma total bilirubin >4 mg/dl) According to the clinical indications above, can Bacteremia be further specified? If so, please indicate below and in your Progress Notes and/ or Discharge Summary. Indicate if the condition was present on admission. PHYSICIAN RESPONSE: [ ] Sepsis [ ] Severe Sepsis [ ] Septic Shock [ ] Septicemia [ ] Sepsis now resolved [ ] SIRS due to non-infectious cause with organ dysfunction [ ] SIRS due to non-infectious cause without organ dysfunction [ ] Other: [ ] Comment/Explanation: Present on Admission: [ ] Yes (Y) [ ] Clinically undeterminable (W) [ ] No ( N) [ ] Ruled Out Please also document response in your Progress Notes and/or Discharge Summary and indicate if the condition was present on admission Notes: SIRS/ SIRS WITH ORGAN DYSFUNCTION Systemic inflammatory response syndrome (SIRS) generally refers to the systemic response to trauma/anglin or other insult such as Acute Myocardial Infarction, Acute Pancreatitis, and Major Surgery with symptoms including fever, tachycardia , tachypnea, and leukocytosis (1). BACTEREMIA Presence of viable bacteria in the circulating blood (2). This term is reserved for patients that do not manifest above SIRS response. SEPTICEMIA Generally refers to a systemic disease associated with the presence of pathological microorganisms or toxins in the blood, which can include bacteria, viruses, fungi or other organisms (1). SEPSIS Generally refers to SIRS due infection (1). SEVERE SEPSIS Generally refers to sepsis associated with acute organ dysfunction (1). SEPTIC SHOCK Generally refers to circulatory failure associated with severe sepsis (2), and defined as hypotension or hypoperfusion despite adequate fluid resuscitation (1 hour) (3). REFERENCES: 1. [place] [employer]/Society of Critical Care Medicine Consensus Conference. Definitions for sepsis and organ failure and guidelines for the use of innovative therapies in sepsis. Critical Care Med 1992;20:864 - 74. 2. Jhonathan barone MM, Karlos MP, James MARKOS, Blaze E, Hima D, Xavi D, Ayush J, Arianna KEVIN , Javy BARAHONA, [place] G; International Sepsis Definitions Conference. 2001 SCCM/ESICM/ACCP/ATS/SIS International Sepsis Definitions Conference. Intensive Care Med. 2002;29(4):530-8. Epub 2002May 21. Review. PubMed PMID:[id number] 3. ICD-9-CM Official Guidelines for Coding and Reporting 4. Medscape Drugs, Diseases and Procedures references 5. [employer] Textbook of Internal Medicine. 18th Edition MTDD"
== END 2016-03-01 15:52 | disposition home or self-care (01) | DRG 871 ==
LOC: ED 14:37 → EDBD 14:37 → 3A 02-17 02:15
PROVIDERS: ADMIT Family Medicine; ATTEND Family Medicine
PROC: 0J990ZX Drainage of Buttock Subcutaneous Tissue and Fascia, Open Approach, Diagnostic (ICD-10-PCS; principal; 2016-02-18)
DX: A41.9 Sepsis, unspecified organism (principal); M72.6 Necrotizing fasciitis; L02.31 Cutaneous abscess of buttock; E87.1 Hypo-osmolality and hyponatremia; E87.2 Acidosis; R65.10 Systemic inflammatory response syndrome (SIRS) of non-infectious origin without acute organ dysfunction; I10 Essential (primary) hypertension; I48.0 Paroxysmal atrial fibrillation; E83.39 Other disorders of phosphorus metabolism; E11.65 Type 2 diabetes mellitus with hyperglycemia; E78.5 Hyperlipidemia, unspecified; E87.6 Hypokalemia; Z79.82 Long term (current) use of aspirin; Z79.899 Other long term (current) drug therapy; Z83.3 Family history of diabetes mellitus
CPT/HCPCS: 36415; 72194; 74177; 80048; 80053; 80162; 80202; 81001; 82010; 82140; 82962; 83735; 84100; 84443; 85007; 85025; 87040; 87116; 93005; 93010; 93306; 96365; 96368; 96375; A9270-GY; J1650; J1815; J1818; J2270; J2543; J3370; J3475; J3480; J7030; J7040; J7050; Q9967